=== PATIENT | female | born 1935 | race Caucasian/White ===

== ENCOUNTER 2020-01-12 14:58 | Outpatient (CLI) | payer MEDICARE, SELFPAY | END 2020-01-12 14:59 | disposition home or self-care (01) | LOC: ANHLAB 15:01 | PROVIDERS: PCP Emergency Medicine; Visit Provider Emergency Medicine | DX: E11.9 Type 2 diabetes mellitus without complications (principal) | CPT/HCPCS: 36415; 84443 ==

== ENCOUNTER 2020-01-27 16:06 | Outpatient (CLI) | payer MEDICARE, SELFPAY ==
[2020-01-27 16:52] LABS: Alanine Aminotransferase 17 U/L (4-35); Albumin Level 4.1 g/dL (3.5-5.1); Alkaline Phosphatase 72 U/L (38-126); Aspartate Amino Transferase 31 U/L (14-36); Bilirubin,Total 0.4 mg/dL (0.2-1.3); Blood Urea Nitrogen 29 mg/dL (7-17); Calcium 9.9 mg/dL (8.4-10.2); Carbon Dioxide 37 mmol/L (22-30); Chloride 96 mmol/L (98-107); Estimated Glomerular Filt Rate 24; Glucose 113 mg/dL (65-105); Potassium 4.3 mmol/L (3.4-5.0); Sodium 139 mmol/L (137-145)
== END 2020-01-27 16:07 | disposition home or self-care (01) ==
LOC: ANHLAB 16:07
PROVIDERS: PCP Emergency Medicine; Visit Provider Emergency Medicine
DX: E78.5 Hyperlipidemia, unspecified (principal); E11.9 Type 2 diabetes mellitus without complications
CPT/HCPCS: 36415; 80053

== ENCOUNTER 2020-01-29 00:18 | Emergency (ER) | payer MEDICARE, SELFPAY ==
[2020-01-29 00:22] VITALS: BP 148/119; PULSE 89; RESP 20; TEMP 36.2; O2SAT 96
--- NOTE | 2020-01-29 00:36 | ED.DENTAL ---
HPI - Dental/Oral General Chief complaint: Dental/Oral Stated complaint: Dental pain Time Seen by Provider: 01/29/20 00:30 Source: patient and family Mode of arrival: ambulatory Limitations: no limitations History of Present Illness HPI Narrative: The pt is an 84 y/o female who presents to the ED with c/o rt sided dental pain that began yesterday afternoon. The pt states that the pain radiates to her rt ear, reporting rt otalgia and a ASHFORD. Per pt's family, they have been trying to find a dentist that accepts the pt's insurance because she had bad teeth and keeps getting infections. The pt took Tylenol prior to her arrival to the ED and has a PMHx of renal failure. MD Complaint: tooth pain Onset (ago): hour(s) (yesterday afternoon) Associated symptoms: ear pain (rt) and other (ASHFORD) Treatment prior to arrival: other (Tylenol) Related Data Home Medications Medication Instructions Recorded Confirmed albuterol sulfate 2.5 mg Q4-6H PRN 10/08/19 01/17/20 albuterol sulfate [Ventolin HFA] 2 puff INHALATION Q4-6H PRN 10/08/19 01/17/20 aspirin [Aspir-81] 81 mg PO DAILY 10/08/19 01/17/20 calcitriol 0.25 mcg PO DAILY 10/08/19 01/17/20 cholecalciferol (vitamin D3) 5,000 unit PO DAILY 10/08/19 01/17/20 [Vitamin D3] ferrous gluconate 236 mg PO DAILY 10/08/19 01/17/20 lisinopril 20 mg PO DAILY 10/08/19 01/17/20 multivitamin [Multiple Vitamins] 1 tablet PO DAILY 10/08/19 01/17/20 venlafaxine 150 mg 150 mg PO DAILY 10/08/19 01/17/20 capsule,extended release 24 hr albuterol sulfate 90 mcg/actuation See Rx Instructions .ROUTE .COMPLEX 10/14/19 01/17/20 aerosol inhaler fluticasone propionate 50 See Rx Instructions .ROUTE .COMPLEX 10/14/19 01/17/20 mcg/actuation nasal spray,suspension furosemide 40 mg tablet 40 mg PO DAILY tablet 10/14/19 01/17/20 Allergies Allergy/AdvReac Type Severity Reaction Status Date / Time adhesive tape Allergy Mild ADHESIVE/PLASTIC Verified 10/26/19 09:06 TAPE= ITCHING/ BLISTERS poison maya extract Allergy Unknown Rash Verified 01/29/20 00:48 Review of Systems Review of Systems: All systems reviewed & are unremarkable except as noted in HPI and below ENT: Reports dental pain (rt sided) and Reports otalgia (rt) Neurologic: Reports headache(s) PMFSH Past Medical History Medical History Cardiomegaly Chronic abdominal pain Chronic back pain COPD (chronic obstructive pulmonary disease) Dementia GERD (gastroesophageal reflux disease) GI bleed HLD (hyperlipidemia) HTN (hypertension) Iron deficiency anemia Kidney disease, chronic, stage III (GFR 30-59 ml/min) Nephrolithiasis GELY (obstructive sleep apnea) Osteoarthritis Ulcer Esophageal Ventral hernia Surgical History Surgical History H/O umbilical hernia repair H/O: hysterectomy History of appendectomy History of cataract removal with insertion of prosthetic lens History of tonsillectomy and adenoidectomy Status post gastroplasty x 4 Family History Family History Sibling Heart disease Brain aneurysm Cancer Grandparent Cerebrovascular accident Sibling Family history of obesity Family history of osteoporosis Family history of cataracts Cerebrovascular accident Family history of chronic obstructive pulmonary disease Family history of multiple sclerosis Family history of cardiovascular disease Family history of malignant neoplasm Father Family history of elevated blood lipids Cerebrovascular accident Grandparent Family history of Alzheimer's disease Mother Family history of Alzheimer's disease Sibling Diabetes mellitus Family history of multiple sclerosis Family history of dementia Father Cerebrovascular accident Mother Family history of Alzheimer's disease Other Family history of allergic disorder Fam
[2020-01-29] MEDS: TRAMADOL HCL 50 MG TABLET PO (00:57)
[2020-01-29] MEDS: PENICILLIN V POTASSIUM 250 MG TABLET 500 MG PO (00:58)
== END 2020-01-29 01:00 | disposition home or self-care (01) ==
PROVIDERS: Emergency Provider Emergency Medicine; PCP Emergency Medicine
DX: K02.9 Dental caries, unspecified (principal); I12.9 Hypertensive chronic kidney disease with stage 1 through stage 4 chronic kidney disease, or unspecified chronic kidney disease; N18.3 Chronic kidney disease, stage 3 (moderate); I51.7 Cardiomegaly; J44.9 Chronic obstructive pulmonary disease, unspecified; F03.90 Unspecified dementia, unspecified severity, without behavioral disturbance, psychotic disturbance, mood disturbance, and anxiety; K21.9 Gastro-esophageal reflux disease without esophagitis; E78.5 Hyperlipidemia, unspecified; D50.9 Iron deficiency anemia, unspecified; G47.33 Obstructive sleep apnea (adult) (pediatric); Z98.49 Cataract extraction status, unspecified eye; Z96.1 Presence of intraocular lens; Z87.891 Personal history of nicotine dependence
CPT/HCPCS: 99283; A9270

== ENCOUNTER 2020-02-03 14:50 | Outpatient (CLI) | payer MEDICARE, SELFPAY ==
[2020-02-03 15:45] LABS: Basophils Percent Auto 0.3 % (0.2-1.2); Eosinophils Absolute Auto 0.2 K/mm3 (0-0.3); Hematocrit 37.3 % (37.0-47.0); Hemoglobin 11.7 g/dL (12.0-15.0); Immature Granulocyte Absolute 0.02 K/mm3 (0.00-0.031); Immature Granulocyte Percent A 0.3 % (0-0.5); Lymphocytes Absolute Auto 1.67 K/mm3 (0.9-3.2); Mean Corpuscular HGB Conc 31.4 g/dl (32-36); Mean Corpuscular Hemoglobin 28.7 pg (26-34); Mean Corpuscular Volume 91.4 fl (80-100); Mean Platelet Volume 10.6 fl (7.4-10.4); Monocytes Absolute Auto 0.4 K/mm3 (0.1-0.6); Monocytes Percent Auto 6.7 % (2.6-8.5); Neutrophils Absolute Auto 3.6 K/mm3 (1.3-6.7); Neutrophils Percent Auto 60.7 % (45.5-73.1); Platelet Count Result 233 k/mm3 (150-375); Red Blood Count 4.08 M/mm3 (4.2-5.4)
[2020-02-03 15:58] LABS: Creatinine Urine 149.9 mg/dL; Total Protein Urine Random 124 mg/dL
[2020-02-03 15:58] LABS: Blood Urea Nitrogen 25 mg/dL (7-17); Calcium 9.4 mg/dL (8.4-10.2); Carbon Dioxide 33 mmol/L (22-30); Chloride 100 mmol/L (98-107); Estimated Glomerular Filt Rate 25; Glucose 177 mg/dL (65-105); Phosphorus 2.7 mg/dL (2.5-4.5); Potassium 4.1 mmol/L (3.4-5.0); Sodium 139 mmol/L (137-145)
[2020-02-03 16:09] LABS: Parathyroid Intact 75.1 pg/mL (7.5-53.5)
== END 2020-02-03 14:51 | disposition home or self-care (01) ==
LOC: ANHLAB 14:57
PROVIDERS: PCP Emergency Medicine; Visit Provider Emergency Medicine
DX: N18.3 Chronic kidney disease, stage 3 (moderate) (principal); E03.9 Hypothyroidism, unspecified
CPT/HCPCS: 36415; 80069; 82306; 82570; 83970; 84156; 84443; 85025

== ENCOUNTER 2020-04-25 10:25 | Outpatient (CLI) | payer MEDICARE, SELFPAY ==
[2020-04-25 11:07] LABS: Basophils Percent Auto 0.4 % (0.2-1.2); Eosinophils Absolute Auto 0.3 K/mm3 (0-0.3); Eosinophils Percent Auto 4.4 % (0-4.4); Hemoglobin 11.6 g/dL (12.0-15.0); Immature Granulocyte Absolute 0.03 K/mm3 (0.00-0.031); Immature Granulocyte Percent A 0.4 % (0-0.5); Lymphocytes Absolute Auto 1.53 K/mm3 (0.9-3.2); Lymphocytes Percent Auto 21.9 % (18.3-44.2); Mean Corpuscular HGB Conc 32.2 g/dl (32-36); Monocytes Absolute Auto 0.6 K/mm3 (0.1-0.6); Monocytes Percent Auto 7.9 % (2.6-8.5); Neutrophils Absolute Auto 4.5 K/mm3 (1.3-6.7); Platelet Count Result 240 k/mm3 (150-375); Red Cell Distribution Width 14.1 % (11.5-14.5)
[2020-04-25 11:12] LABS: Add Urine Microscopic? YES; Appearance Urine Turbid (Clear); Bacteria Urine 2+ /hpf; Bilirubin Urine Negative (Negative); Color Urine Yellow (Yellow); Glucose Urine UA Negative (Negative); Ketones Urine Negative (Negative); Leukocyte Esterase Ur 3+ LEU/UL (Negative); Nitrate Urine Positive (Negative); Protein Urine 2+ mg/dL (Negative); Specific Grav Ur 1.014 (1.001-1.035); Squamous Epithelial Cell Urine Many /hpf (Few); Urobilinogen Urine Negative mg/dL (<2.0); WBC Clumps Urine Present /HPF; WBC Urine >75 /hpf
[2020-04-25 11:15] LABS: Blood Urine Negative (Negative)
[2020-04-25 11:31] LABS: Albumin Level 3.8 g/dL (3.5-5.1); Blood Urea Nitrogen 23 mg/dL (7-17); Calcium 9.5 mg/dL (8.4-10.2); Carbon Dioxide 36 mmol/L (22-30); Chloride 99 mmol/L (98-107); Estimated Glomerular Filt Rate 29; Glucose 164 mg/dL (65-105); Phosphorus 3.5 mg/dL (2.5-4.5); Potassium 4.5 mmol/L (3.4-5.0); Sodium 137 mmol/L (137-145)
[2020-04-25 11:41] LABS: Parathyroid Intact 55.6 pg/mL (7.5-53.5)
[2020-04-25 11:44] LABS: Creatinine Urine 90.4 mg/dL; Total Protein Urine Random 92 mg/dL
[2020-04-25 12:01] LABS: Vitamin D 25 Hydroxy 43.3 ng/mL
== END 2020-04-25 10:26 | disposition home or self-care (01) ==
PROVIDERS: PCP Emergency Medicine
DX: N18.3 Chronic kidney disease, stage 3 (moderate) (principal); R10.9 Unspecified abdominal pain
CPT/HCPCS: 36415; 80069; 81001; 82306; 82570; 83970; 84156; 85025; 87077; 87086; 87088; 87186

== ENCOUNTER 2020-07-09 07:38 | Observation (INO) | payer MEDICARE, SELFPAY ==
[2020-07-09] VITALS (14 sets, daily range): BP systolic 107–240; BP diastolic 55–222; PULSE 63–83; RESP 17–23; TEMP 36.4–36.9; O2SAT 90–100; BMI 46.3
--- NOTE | ~2020-07-09 | CT_ITS ---
EXAMINATION: CT brain wo con DATE: 07/09/2020 08:24 INDICATION: Headache TECHNIQUE: Computed tomography (CT) of the head was performed without intravenous contrast. Sagittal and coronal reconstructions were performed. The mA was adjusted according to patient size. Iterative reconstruction technique was employed. The dose-length product was 681.00 mGy-cm. COMPARISON: head CT and brain MR dated 05/30/2014 FINDINGS: No acute intracranial hemorrhage, acute infarction or abnormal extra axial fluid collection. There is moderate scattered white matter hypoattenuation consistent with chronic small vessel ischemic diseas e. Symmetric prominence of the sulci and ventricles consistent with moderate age-appropriate diffuse cerebral volume loss. No mass/mass effect. Changes of bilateral intraocular lens replacement. There is mucosal thickening at the right frontoethmoidal recess. The orbits and mastoid air cells are eliseo l. Intracranial calcified cerebral atherosclerosis is noted. IMPRESSION: 1. No acute intracranial process. 2. Age-related changes including moderate diffuse volume loss and moderate scattered white matter hyp oattenuation consistent with chronic small vessel ischemic disease. Reviewed, dictated and finalized at location A. IMPRESSION: 1. No acute intracranial process. 2. Age-related changes including moderate diffuse volume loss and moderate scat tered white matter hypoattenuation consistent with chronic small vessel ischemi c disease.
--- NOTE | ~2020-07-09 | CT_ITS ---
EXAMINATION: CT brain wo con EXAM DATE: 07/11/2020 19:08 INDICATION: Stroke like symptoms. TECHNIQUE: Spiral CT of the head was performed without contrast. Axial, coronal and sagittal images were reviewed. The dose-length product (DLP) for this examination was 681.00 mGy-cm. The exposure w as tailored according to patient size, and iterative reconstruction (ASIR) was used as additional dos e reduction technique. Comparison is made to prior examination from 07/09/2020. FINDINGS: There is no acute intraparenchymal hemorrhage. No evidence of intraparenchymal brain mass lesion. No evidence of acute infarction. Please note that initial head CT has limited sensitivity f or small or acute infarctions. There is moderate periventricular and subcortical hypodensity, nonspec ific but probably related to small vessel ischemic disease. There is moderate prominence of the sul ci and ventricles related to cerebral atrophy. There is intracranial carotid arteriosclerosis. The re are no extra-axial collections. There is no mass effect or midline shift. Patient has had bilate ral ocular lens surgery. Soft tissue is unremarkable. The visualized sinuses and mastoid air cells are well aerated. IMPRESSION: 1. No acute intracranial findings. 2. Chronic age related findings. Reviewed, dictated and finalized at location A.
--- NOTE | ~2020-07-09 | MR_ITS ---
EXAMINATION: MR brain/brain stem wo con DATE: 07/10/2020 08:40 INDICATION: Headache. TECHNIQUE: Magnetic resonance imaging (MRI) of the brain and brainstem was performed without intraven ous contrast. Sequences included sagittal T1-weighted FSE and axial DWI. ADC maps were created. The p atlorenza could not tolerate additional imaging. COMPARISON: Brain MRI 05/30/2014, head CT 07/09/2020 FINDINGS: Motion artifact is noted. There are scattered areas of nonspecific increased T2-weighted si gnal intensity in the cerebral white matter. There is no acute ischemic infarct, intracranial hemorrh age, or abnormal mass lesion. The ventricles are normal in size. IMPRESSION: 1. Moderate nonspecific cerebral white matter disease, which likely represents chronic small vessel i schemic disease, worsened from 05/30/2014. 2. The patient terminated the exam early, and multiple sequences could not be performed, which decrea ses sensitivity. Reviewed, dictated and finalized at location B. IMPRESSION: 1. Moderate nonspecific cerebral white matter disease, which likely represents chronic small vessel ischemic disease, worsened from 05/30/2014. 2. The patient terminated the exam early, and multiple sequences could not be p erformed, which decreases sensitivity.
--- NOTE | 2020-07-09 07:53 | ECG_ITS ---
Measurements Intervals [place] Rate: 67 P: 44 LA: 204 QRS: -16 QRSD: 90 T: 15 QT: 421 QTc: 447 Interpretive Statements SINUS RHYTHM BORDERLINE AV CONDUCTION DELAY LOW QRS VOLTAGE IN PRECORDIAL LEADS POOR R WAVE PROGRESSION, ANTERIOR LEADS BORDERLINE T WAVE ABNORMALITY- ANT/INF LEADS BASELINE ARTIFACT- I, II, III, AVF BORDERLINE ECG Electronically Signed On 07-09-2020 14:58:42 CDT by Mendoza Nunes D.O.
[2020-07-09] MEDS: LABETALOL HCL INJ 100 MG/20 ML VIAL 20 MG IV PUSH (07:57)
[2020-07-09] MEDS: MORPHINE SULFATE 4 MG/ML INJ IV PUSH (07:58)
[2020-07-09] MEDS: METOCLOPRAMIDE HCL INJ 10 MG/2 ML VIAL IV PUSH (07:58)
--- NOTE | 2020-07-09 08:02 | ED.GENADULT ---
HPI - General Adult General Chief complaint: Headache Stated complaint: ASHFORD Source: patient Mode of arrival: EMS History of Present Illness HPI narrative: Patient is a 84 y/o female complaining of throbbing bilateral frontal headache since last night. She describes her headache as 10/10. She states that her daughter gave her some pain medicine , which helped slightly. She has some nausea and dry heaves, but not vomiting. She has no focal weakness, numbness or speech difficulty. Related Data Home Medications Medication Instructions Recorded Confirmed albuterol sulfate 2.5 mg Q4-6H PRN 10/08/19 06/13/20 albuterol sulfate [Ventolin HFA] 2 puff INHALATION Q4-6H PRN 10/08/19 06/13/20 aspirin [Aspir-81] 81 mg PO DAILY 10/08/19 06/13/20 calcitriol 0.25 mcg PO DAILY 10/08/19 06/13/20 cholecalciferol (vitamin D3) 5,000 unit PO DAILY 10/08/19 06/13/20 [Vitamin D3] ferrous gluconate 236 mg PO DAILY 10/08/19 06/13/20 lisinopril 20 mg PO DAILY 10/08/19 06/13/20 multivitamin [Multiple Vitamins] 1 tablet PO DAILY 10/08/19 06/13/20 venlafaxine 150 mg 150 mg PO DAILY 10/08/19 06/13/20 capsule,extended release 24 hr albuterol sulfate 90 mcg/actuation See Rx Instructions .ROUTE .COMPLEX 10/14/19 06/13/20 aerosol inhaler fluticasone propionate 50 See Rx Instructions .ROUTE .COMPLEX 10/14/19 06/13/20 mcg/actuation nasal spray,suspension Allergies Allergy/AdvReac Type Severity Reaction Status Date / Time adhesive tape Allergy Mild ADHESIVE/PLASTIC Verified 07/09/20 07:52 TAPE= ITCHING/ BLISTERS poison maya extract Allergy Unknown Rash Verified 07/09/20 07:52 Review of Systems Constitutional: Constitutional: Denies chills, Denies fever(s), Reports headache(s) and Denies weakness Eyes: Eyes: Denies blurry vision ENT: Reports headache(s) and Denies neck pain Cardiovascular: Cardiovascular: Denies chest pain and Denies dyspnea Respiratory: Respiratory: Denies cough and Denies dyspnea Gastrointestinal: Gastrointestinal: Denies abdominal pain, Denies diarrhea, Denies nausea and Denies vomiting Genitourinary: Genitourinary: Denies hematuria and Denies dysuria Musculoskeletal: Musculoskeletal: Denies back pain and Denies neck pain Neurologic: Reports headache(s) and Denies weakness PMFSH Past Medical History Medical History Cardiomegaly Chronic abdominal pain Chronic back pain COPD (chronic obstructive pulmonary disease) Dementia GERD (gastroesophageal reflux disease) GI bleed HLD (hyperlipidemia) HTN (hypertension) Iron deficiency anemia Kidney disease, chronic, stage III (GFR 30-59 ml/min) Nephrolithiasis GELY (obstructive sleep apnea) Osteoarthritis Ulcer Esophageal Ventral hernia Surgical History Surgical History H/O umbilical hernia repair H/O: hysterectomy History of appendectomy History of cataract removal with insertion of prosthetic lens History of tonsillectomy and adenoidectomy Status post gastroplasty x 4 Family History Family History Sibling Heart disease Brain aneurysm Cancer Grandparent Cerebrovascular accident Sibling Family history of obesity Family history of osteoporosis Family history of cataracts Cerebrovascular accident Family history of chronic obstructive pulmonary disease Family history of multiple sclerosis Family history of cardiovascular disease Family history of malignant neoplasm Father Family history of elevated blood lipids Cerebrovascular accident Grandparent Family history of Alzheimer's disease Mother Family history of Alzheimer's disease Sibling Diabetes mellitus Family history of multiple sclerosis Family history of dementia Father Cerebrovascular accident Mother Family history of Alzheimer's disease Other Family history of allergic dis
--- NOTE | 2020-07-09 08:05 | PC.NURSE ---
Pt to CT scan via stretcher, pt on tele monitor.
[2020-07-09 08:12] LABS: Basophils Percent Auto 0.5 % (0.2-1.2); Eosinophils Absolute Auto 0.2 K/mm3 (0-0.3); Eosinophils Percent Auto 2.9 % (0-4.4); Hematocrit 36.7 % (37.0-47.0); Hemoglobin 11.8 g/dL (12.0-15.0); Immature Granulocyte Absolute 0.02 K/mm3 (0.00-0.031); Immature Granulocyte Percent A 0.3 % (0-0.5); Lymphocytes Absolute Auto 1.54 K/mm3 (0.9-3.2); Lymphocytes Percent Auto 19.7 % (18.3-44.2); Mean Corpuscular HGB Conc 32.2 g/dl (32-36); Mean Corpuscular Hemoglobin 28.2 pg (26-34); Mean Corpuscular Volume 87.6 fl (80-100); Mean Platelet Volume 10.6 fl (7.4-10.4); Monocytes Absolute Auto 0.6 K/mm3 (0.1-0.6); Monocytes Percent Auto 7.1 % (2.6-8.5); Neutrophils Absolute Auto 5.4 K/mm3 (1.3-6.7); Neutrophils Percent Auto 69.5 % (45.5-73.1); Platelet Count Result 221 k/mm3 (150-375); Red Blood Count 4.19 M/mm3 (4.2-5.4); Red Cell Distribution Width 14.1 % (11.5-14.5); White Blood Count 7.8 K/mm3 (4.5-10.0)
[2020-07-09 08:26] LABS: Alanine Aminotransferase 15 U/L (4-35); Albumin Level 3.8 g/dL (3.5-5.1); Alkaline Phosphatase 84 U/L (38-126); Anion Gap 6 mmol/L (8-16); Aspartate Amino Transferase 26 U/L (14-36); Bilirubin,Total 0.2 mg/dL (0.2-1.3); Blood Urea Nitrogen 34 mg/dL (7-17); Calcium 9.5 mg/dL (8.4-10.2); Carbon Dioxide 33 mmol/L (22-30); Chloride 96 mmol/L (98-107); Estimated CRCL calculation 28 ml/min; Estimated Glomerular Filt Rate 27; Glucose 158 mg/dL (65-105); Potassium 4.3 mmol/L (3.4-5.0); Sodium 135 mmol/L (137-145)
[2020-07-09] MEDS: amLODIPine BESYLATE 5 MG TABLET 10 MG PO (09:34)
[2020-07-09 10:03] LABS: Add Urine Microscopic? YES; Appearance Urine Turbid (Clear); Bacteria Urine 2+ /hpf; Bilirubin Urine Negative (Negative); Color Urine Yellow (Yellow); Glucose Urine UA Negative (Negative); Ketones Urine Negative (Negative); Leukocyte Esterase Ur 3+ LEU/UL (Negative); Mucus Urine Rare /lpf; Nitrate Urine Positive (Negative); Protein Urine 2+ mg/dL (Negative); Specific Grav Ur 1.014 (1.001-1.035); Squamous Epithelial Cell Urine Many /hpf (Few); Urobilinogen Urine Negative mg/dL (<2.0); WBC Urine 51-75 /hpf
[2020-07-09 10:04] LABS: Blood Urine Negative (Negative)
--- NOTE | 2020-07-09 11:50 | ADMGEN ---
This patient, Suha Shelton, was admitted to 2 Medical Room 257-01. Patient/family oriented to hospital policies and general routines including ID bracelet, bed and alarms, visiting hours, pain management, procedures, bathroom and other care routines, personal items, smoking policy, room service/diet, and visiting hours. Valuables list has been completed. Information on how to activate the Rapid Response Team has been discussed. Patient/Family are encouraged to report perceived risks to care and to ask questions if they do not understand what they are told or what they should do.
[2020-07-09 14:39] LABS: Basophils Percent Auto 0.3 % (0.2-1.2); Eosinophils Percent Auto 0.1 % (0-4.4); Hemoglobin 12.8 g/dL (12.0-15.0); Immature Granulocyte Absolute 0.04 K/mm3 (0.00-0.031); Immature Granulocyte Percent A 0.4 % (0-0.5); Lymphocytes Percent Auto 8.4 % (18.3-44.2); Mean Corpuscular HGB Conc 32.8 g/dl (32-36); Mean Corpuscular Hemoglobin 28.5 pg (26-34); Mean Corpuscular Volume 86.9 fl (80-100); Mean Platelet Volume 10.5 fl (7.4-10.4); Monocytes Absolute Auto 0.3 K/mm3 (0.1-0.6); Monocytes Percent Auto 3.2 % (2.6-8.5); Neutrophils Absolute Auto 8.3 K/mm3 (1.3-6.7); Neutrophils Percent Auto 87.6 % (45.5-73.1); Platelet Count Result 221 k/mm3 (150-375); Red Blood Count 4.49 M/mm3 (4.2-5.4); White Blood Count 9.5 K/mm3 (4.5-10.0)
[2020-07-09 14:46] LABS: Hemoglobin A1C 8.4 % (<5.7)
[2020-07-09 14:48] LABS: Anion Gap 9 mmol/L (8-16); Blood Urea Nitrogen 30 mg/dL (7-17); Calcium 9.2 mg/dL (8.4-10.2); Carbon Dioxide 31 mmol/L (22-30); Chloride 96 mmol/L (98-107); Estimated CRCL calculation 29 ml/min; Estimated Glomerular Filt Rate 29; Glucose 229 mg/dL (65-105); Potassium 4.1 mmol/L (3.4-5.0); Sodium 136 mmol/L (137-145)
[2020-07-09 16:52] LABS: Glucose Point of Care 173 (65-105)
--- NOTE | 2020-07-09 16:58 | PM.IMHP ---
H&P: HPI History of Present Illness Date/Time: 07/09/20 16:58 Chief complaint: hypertensive urgency Narrative: Suha Shelton is a 84 year old female with past medical history of diabetes hypertension patient presented emergency department with a complaint of bilateral frontal headache for 2 days and worsening, patient is quite somnolent and sleepy unable to provide any history or review of symptoms most history is recorded from electronic charts. patient has history of headache on and off however normally resolves after Tylenol with this time headache is persisting, patient denies any associated symptoms or blurry vision, no fever or chills, upon arrival to emergency department patient blood pressure was 240/222 in emergency depart was given labetalol, Reglan, and morphine this did help her headache and her blood pressure trended down to 173/93, patient UA is positive for nitrite and leukocyte and appears similarly in the past growing E coli sensitive to Rocephin will continue that will continue patient's home regimen, will do MRI of the brain in the morning however patient is morbidly obese will plan accordingly. will have a PT OT evaluate the patient. Review of Systems Review of Systems: ROS unobtainable: Yes unobtainable due to medical condition PMFSH Past Medical History Medical History Cardiomegaly Chronic abdominal pain Chronic back pain COPD (chronic obstructive pulmonary disease) Dementia GERD (gastroesophageal reflux disease) GI bleed HLD (hyperlipidemia) HTN (hypertension) Iron deficiency anemia Kidney disease, chronic, stage III (GFR 30-59 ml/min) Nephrolithiasis GELY (obstructive sleep apnea) Osteoarthritis Ulcer Esophageal Ventral hernia Surgical History Surgical History H/O umbilical hernia repair H/O: hysterectomy History of appendectomy History of cataract removal with insertion of prosthetic lens History of tonsillectomy and adenoidectomy Status post gastroplasty x 4 Family History Family History Sibling Heart disease Brain aneurysm Cancer Grandparent Cerebrovascular accident Sibling Family history of obesity Family history of osteoporosis Family history of cataracts Cerebrovascular accident Family history of chronic obstructive pulmonary disease Family history of multiple sclerosis Family history of cardiovascular disease Family history of malignant neoplasm Father Family history of elevated blood lipids Cerebrovascular accident Grandparent Family history of Alzheimer's disease Mother Family history of Alzheimer's disease Sibling Diabetes mellitus Family history of multiple sclerosis Family history of dementia Father Cerebrovascular accident Mother Family history of Alzheimer's disease Other Family history of allergic disorder Family history of blood dyscrasia Family history of gout Family history of kidney disease Hypertension Social History Social History Social History: Ms. Shelton lives at home in [place] with her daughter and 7 other family members to include her grand daughter and grandyeison's family. 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 She reports ambulating mostly with a cane but also has a walker at home if she needs it. She denies alcohol or other substance use. She smoked cigarettes for 1 year in 1989 when she smoked about 1 pack per day, then quit. Her PCP is Dr Whitlock. She designates her daughter, Mel Perry, as her surrogate decision maker and is full code status. Smoking packs per day: 1 Smoking cigarettes per day: 20.0 Years smoked: 5 Smoking pack-years: 5.00 Smoking status: Former smoker Tobacc
[2020-07-09] MEDS: allopurinoL 100 MG TABLET PO (17:08)
[2020-07-09] MEDS: busPIRone HCL 10 MG TABLET 30 MG PO (17:08)
[2020-07-09] MEDS: CYCLOBENZAPRINE HCL 5 MG TABLET PO (17:09)
[2020-07-09] MEDS: TRIAMCINOLONE ACET 0.5% CREAM 15 GM TUBE 1 APPLIC TOPICAL (17:09)
[2020-07-09] MEDS: DONEPEZIL HCL 10 MG TABLET PO (20:31)
[2020-07-09] MEDS: SIMVASTATIN 20 MG TABLET 40 MG PO (20:31)
[2020-07-09] MEDS: ACETAMINOPHEN 325 MG TABLET 650 MG PO (22:50)
[2020-07-09] MEDS: MELATONIN 5 MG TABLET PO (23:14)
[2020-07-09] MEDS: ONDANSETRON INJ 4 MG/2 ML VIAL IV PUSH (23:54)
[2020-07-10] VITALS (12 sets, daily range): BP systolic 101–161; BP diastolic 58–98; PULSE 63–92; RESP 18–24; TEMP 36.4–37; O2SAT 91–99; BMI 46.3
[2020-07-10 05:39] LABS: Hemoglobin 13.6 g/dL (12.0-15.0); Mean Corpuscular HGB Conc 32.4 g/dl (32-36); Mean Corpuscular Hemoglobin 28.1 pg (26-34); Mean Corpuscular Volume 86.8 fl (80-100); Mean Platelet Volume 10.3 fl (7.4-10.4); Platelet Count Result 226 k/mm3 (150-375); Red Blood Count 4.84 M/mm3 (4.2-5.4); Red Cell Distribution Width 14.2 % (11.5-14.5); White Blood Count 10.9 K/mm3 (4.5-10.0)
[2020-07-10 05:55] LABS: Anion Gap 8 mmol/L (8-16); Blood Urea Nitrogen 28 mg/dL (7-17); Calcium 9.2 mg/dL (8.4-10.2); Carbon Dioxide 31 mmol/L (22-30); Chloride 95 mmol/L (98-107); Estimated CRCL calculation 29 ml/min; Estimated Glomerular Filt Rate 29; Glucose 184 mg/dL (65-105); Potassium 4.1 mmol/L (3.4-5.0); Sodium 134 mmol/L (137-145)
[2020-07-10] MEDS: LEVOTHYROXINE SODIUM 75 MCG TABLET PO (06:04)
[2020-07-10] MEDS: LEVOTHYROXINE SODIUM 100 MCG TABLET PO (06:04)
[2020-07-10 07:44] LABS: Glucose Point of Care 163 (65-105)
--- NOTE | 2020-07-10 08:01 | PC.NURSE ---
To MRI per stretcher
[2020-07-10] MEDS: calcitrioL 0.25 MCG CAPSULE PO (09:03)
[2020-07-10] MEDS: PANTOPRAZOLE 40 MG TABLET PO (09:03)
[2020-07-10] MEDS: allopurinoL 100 MG TABLET PO ×2 (09:03→16:37)
[2020-07-10] MEDS: CHOLECALCIFEROL 1,000 UNIT TABLET 5000 UNITS PO (09:03)
[2020-07-10] MEDS: CITALOPRAM HYDROBROMIDE 20 MG TABLET PO (09:03)
[2020-07-10] MEDS: lisinopriL 20 MG TABLET PO (09:03)
[2020-07-10] MEDS: MULTIVITAMINS THERAPEUTIC TAB (*BKC) 1 TABLET PO (09:03)
[2020-07-10] MEDS: busPIRone HCL 10 MG TABLET 30 MG PO ×2 (09:03→16:37)
[2020-07-10] MEDS: POTASSIUM CHLORIDE 20 MEQ TABLET.ER PO (09:03)
[2020-07-10] MEDS: FUROSEMIDE 40 MG TABLET PO (09:03)
[2020-07-10] MEDS: CYCLOBENZAPRINE HCL 5 MG TABLET PO ×3 (09:04→16:37)
[2020-07-10] MEDS: carvediloL 6.25 MG TABLET PO (09:04)
[2020-07-10] MEDS: TRIAMCINOLONE ACET 0.5% CREAM 15 GM TUBE 1 APPLIC TOPICAL ×2 (09:07→16:37)
[2020-07-10 12:17] LABS: Glucose Point of Care 106 (65-105)
[2020-07-10] MEDS: ACETAMINOPHEN 325 MG TABLET 650 MG PO (13:26)
--- NOTE | 2020-07-10 14:09 | PCNSR ---
On 07/10/20, the student,Johnny Gutierrez, provided care and [facility]. I have reviewed the student's documentation and agree with the findings.
--- NOTE | 2020-07-10 14:35 | PM.IMPN ---
Progress Note: A&P Assessment and Plan (1) Headache: Qualifiers: Headache chronicity pattern: unspecified pattern Headache type: unspecified Intractability: not intractable Qualified Code(s): R51 - Headache Code(s): R51 - Headache Status: Acute Assessment and Plan: 07/10/20 14:35 Suha Shelton is a 84 year old female with past medical history of diabetes hypertension patient presented emergency department with a complaint of bilateral frontal headache for 2 days and worsening, patient is quite somnolent and sleepy unable to provide any history or review of symptoms most history is recorded from electronic charts. patient has history of headache on and off however normally resolves after Tylenol with this time headache is persisting, patient denies any associated symptoms or blurry vision, no fever or chills, upon arrival to emergency department patient blood pressure was 240/222 in emergency depart was given labetalol, Reglan, and morphine this did help her headache and her blood pressure trended down to 173/93, patient UA is positive for nitrite and leukocyte and appears similarly in the past growing E coli sensitive to Rocephin will continue that will continue patient's home regimen, Today patient had MRI of brain did not show any acute injury however it showed 1. Moderate nonspecific cerebral white matter disease, which likely represents chronic small vessel ischemic disease, worsened from concerning this may be caused of ASHFORD, will consult neurologist for their opinion, today patient BP is better with home regiement however while with PT patient had pause and bradycardia, will consult chamber magistrate for their recommendatiion. will continue to monitor. (2) Hypertensive urgency: Code(s): I16.0 - Hypertensive urgency Status: Acute Assessment and Plan: upon arrival patient blood pressure was extremely elevated, likely secondary to not taking her medication as patient with headache and did not feel well, patient blood pressure is trending down resume home medication will monitor (3) UTI (urinary tract infection): Qualifiers: Hematuria presence: without hematuria Urinary tract infection type: site unspecified Qualified Code(s): N39.0 - Urinary tract infection, site not specified Code(s): N39.0 - Urinary tract infection, site not specified Status: Acute Assessment and Plan: patient started on Rocephin will follow-up on urine culture identification and sensitivity (4) HTN (hypertension): Qualifiers: Hypertension type: essential hypertension Qualified Code(s): I10 - Essential (primary) hypertension Code(s): I10 - Essential (primary) hypertension Status: Chronic Assessment and Plan: continue home regimen and monitor (5) Diabetes: Code(s): E11.9 - Type 2 diabetes mellitus without complications Status: Acute Assessment and Plan: continue home regimen and monitor Subjective Date/time seen: 07/10/20 14:35 Suha Shelton is a 84 year old female with past medical history of diabetes hypertension patient presented emergency department with a complaint of bilateral frontal headache for 2 days and worsening, patient is quite somnolent and sleepy unable to provide any history or review of symptoms most history is recorded from electronic charts. patient has history of headache on and off however normally resolves after Tylenol with this time headache is persisting, patient denies any associated symptoms or blurry vision, no fever or chills, upon arrival to emergency department patient blood pressure was 240/222 in emergency depart was given labetalol, Reglan, and morphine this did help her headache and her blood pressure trended down to 173/93, patient UA is positive for nitrite and leukocyte and appears similarly in the past growing E coli sensitive to Rocephin will continue that will continue patient
--- NOTE | 2020-07-10 15:20 | CONS_ITS ---
DATE OF CONSULTATION: HISTORY OF PRESENT ILLNESS: This 84-year-old right-handed female was admitted to the hospital through the ER for the complaint of hypertensive urgency in addition to the ongoing history of 1. Diabetes mellitus. 2. Hypertension. 3. Cardiomegaly. 4. COPD. 5. Dementia. 6. Chronic renal disease. As per the review of the medical record, the patient presented to the emergency room with complaints of bilateral frontal headaches of 48 hours duration, increasing in the severity making her more and more somnolent. The patient does have, however, history of off and on headaches which usually respond to the Tylenol. She gave no history of associated visual difficulties or generalized discomfort and fever. In the emergency room because of the elevated blood pressure of 240/222, she received labetalol, morphine for the pain. Her blood pressure was standing down to 173/93. Her UA was positive for nitrites and leukocyte esterase. In the past, she has had UTI with E coli, which was sensitive to Rocephin. For that, she was started on that medication. MRI of the brain was requested. LABORATORY DATA: Evaluation up until now includes CBC with 10.9 WBCs, hemoglobin 13.6, platelet count of 226. Basic metabolic panel normal with sodium being 134, chloride 95, CO2 of 31, BUN 28, and creatinine 1.7, estimated GFR only 29, glucose 184, calcium 9.2. IMAGING DATA: She had the head CT scan in the emergency room, which was read as age-related changes with volume loss, scattered white matter hypoattenuation raising the possibility of chronic small-vessel ischemic disease. It was followed by the MRI of the brain today, which documented nonspecific white matter disease representing chronic small-vessel ischemic disease, but worsening from 05/03/2014. Her urine culture at this stage is pending. PHYSICAL EXAMINATION: GENERAL: Today, she is lethargic, obese. HEENT: Head normocephalic. NECK: Supple with no meningeal signs. No cervical bruit. HEART: Regular. LUNGS: Clear with no obvious crepitations or rhonchi. ABDOMEN: Soft. No organomegaly. Normal bowel sounds. SKIN: Normal with no rash. NEUROLOGICAL: She is somnolent. Pupils sluggishly reacting. Extraocular movements are full. Face grimace, symmetrical. Motor examination revealed her to have decreased strength in upper and lower extremities. Plantars are downgoing. There is no evidence of gross cerebellar deficit, but that exam is rather limited. IMPRESSION: Ongoing history of dementia with superimposed hypertensive-related encephalopathy in addition to the history of underlying multiple medical problems as outlined above. At this stage, she is taking all her medications including levothyroxine 75 mcg daily, insulin for diabetes. Certain changes will be made in the medication such as we can hold the cyclobenzaprine, Buspar, and melatonin. Further adjustment will be made accordingly. We are waiting for all the cultures. DOLLY AQUINO M.D. MILITARY PROFESSIONAL MILITARY PROFESSIONAL D I MT: [place]
--- NOTE | 2020-07-10 15:22 | PM.CNCAR ---
Assessment and Plan Additional Plan 84-year-old woman with hypertensive urgency. She is in the hospital being treated for this blood pressure has responded nicely to resuming her medication. For reasons that are not clear to me she is on telemetry and asymptomatic pauses are being noticed. These appear to be sinus pauses. I will start up by discontinuing her beta-diana she is on a modest dose of carvedilol. She does have a cardiac murmur indicative of some degree of aortic valve stenosis. I do not believe this is likely to be severe based on the characteristics of this murmur but I will go ahead and request an echocardiogram for further evaluation of this. Bowen Roes MD [facility] History of Present Illness History of Present Illness Consult date/time: Date of service:07/10/20 15:22 Reason For Visit: hypertensive urgency Narrative: This is an 84-year-old woman who is in the hospital it appears because of concern regarding hypertension. The patient was hospitalized here feeling poorly from the sn[place] where she resides and no upon coming to the emergency room was found to be very hypertensive and admitted for further evaluation. According to the hospitalist's notes it is felt that probably this is because of noncompliance with hypertension medications which have been prescribed. While the patient is in the hospital she is on telemetry for reasons that are not evident and today apparently while she was having physical therapy she had a asystolic pause of 4.7 seconds noted on telemetry. The quality of the baseline at the time of this telemetry pause is of poor quality with a fair amount of motion artifact and so I can't tell for certain what the atrial rhythm is although on a couple of the complex it appears that there are sinus P waves present. The remainder of the ECGs and telemetry strips that are on the chart are of good quality and demonstrate normal sinus rhythm. Upon coming in the room to see the patient as requested she is incapable of providing any history. When I question her she opens her eyes and looks at me but will not respond to any questions. There is a phlebotomy nurse in the room trying to establish peripheral IV access which apparently fell out a short time ago. According to the notes that are in the chart she does not have any established diagnosis of some heart disease separate from this. Review of Systems Review of Systems: ROS unobtainable: Yes unobtainable due to mental status [facility] Past Medical History Medical History (Updated 07/09/20 @ 17:05 by Mario Cardona MD) Cardiomegaly Chronic abdominal pain Chronic back pain COPD (chronic obstructive pulmonary disease) Dementia Diabetes GERD (gastroesophageal reflux disease) GI bleed HLD (hyperlipidemia) HTN (hypertension) Iron deficiency anemia Kidney disease, chronic, stage III (GFR 30-59 ml/min) Nephrolithiasis GELY (obstructive sleep apnea) Osteoarthritis Ulcer Esophageal Ventral hernia Surgical History Surgical History H/O umbilical hernia repair H/O: hysterectomy History of appendectomy History of cataract removal with insertion of prosthetic lens History of tonsillectomy and adenoidectomy Status post gastroplasty x 4 Family History Family History Sibling Heart disease Brain aneurysm Cancer Grandparent Cerebrovascular accident Sibling Family history of obesity Family history of osteoporosis Family history of cataracts Cerebrovascular accident Family history of chronic obstructive pulmonary disease Family history of multiple sclerosis Family history of cardiovascular disease Family history of malignant neoplasm Father Family history of elevated blood lipids Cerebrovascular accident Grandparent Family history of Alzheimer's disease Mother Family history of Alzheimer's disease Sibling Diabetes annel
[2020-07-10] MEDS: ONDANSETRON INJ 4 MG/2 ML VIAL IV PUSH (15:23)
[2020-07-10 17:05] LABS: Glucose Point of Care 124 (65-105)
[2020-07-10] MEDS: DONEPEZIL HCL 10 MG TABLET PO (20:00)
[2020-07-10] MEDS: SIMVASTATIN 20 MG TABLET 40 MG PO (20:00)
[2020-07-10] MEDS: MELATONIN 5 MG TABLET PO (20:00)
[2020-07-10 21:00] LABS: Glucose Point of Care 126 (65-105)
[2020-07-11] VITALS (12 sets, daily range): BP systolic 110–137; BP diastolic 54–84; PULSE 58–68; RESP 18–22; TEMP 35.8–36.6; O2SAT 92–99
--- NOTE | 2020-07-11 | ECHO_ITS ---
Patient Info Name: Suha Shelton Age: 84 years : 1935 Gender: Female Ht: 64 in Wt: 270 lbs BSA: 2.42 m2 BP: 129 / 68 mmHg Heart Rhythm: Sinus Rhythm Technical Quality: Fair Exam Date: 07/11/2020 10:31 AM Exam Location: [facility] Patient Status: Outpatient Admit Date: 07/09/2020 Staff Ordering Physician: Bowen Rose MD Bagging Machine Operator: Beny Alvarado, [place], RT Attending Provider: Kirk Galeano MD Referring Physician: Rose DENTON; Exam Type: CA echo doppler color flow Study Info Indications I35.0 - Nonrheumatic aortic (valve) stenosis Complete two-dimensional, color flow and Doppler transthoracic echocardiogram is performed. Summary 1. Left ventricular chamber dimension is normal. 2. Left ventricular systolic function is normal, estimated at 65-70%. 3. There is moderately increased left ventricular wall thickness. 4. Left ventricular septal wall motion is normal. 5. The left ventricular diastolic function is grade II diastolic dysfunction. 6. Left atrial chamber dimension is mildly enlarged. 7. There is mild aortic valve calcification. 8. There is mild mitral valve regurgitation. 9. There is mild tricuspid valve regurgitation. 10. The pericardium appears increased echogenicity of the pericardium. 11. There is small pericardial effusion. Left Ventricle Left ventricular chamber dimension is normal. Left ventricular systolic function is normal, estimated at 65-70%. There is moderately increased left ventricular wall thickness. Left ventricular septal wall motion is normal. The left ventricular diastolic function is grade II diastolic dysfunction. Right Ventricle Right ventricular chamber dimension is normal. Right ventricular systolic function is normal. Left Atria Left atrial chamber dimension is mildly enlarged. Right Atria Right atrial chamber dimension is normal. Atrial Septum Intact interatrial septum visualized by color flow imaging. Aortic Valve The aortic valve is trileaflet. There is mild aortic valve sclerosis. There is no aortic valve stenosis. There is trace aortic valve regurgitation. There is mild aortic valve calcification. Pulmonic Valve The pulmonic valve is normal. There is no pulmonic valve stenosis. There is trace pulmonic regurgitation. Mitral Valve The mitral valve has calcified annulus. There is no mitral valve stenosis. There is mild mitral valve regurgitation. Tricuspid Valve The tricuspid valve leaflets are normal. There is no significant tricuspid valve stenosis. There is mild tricuspid valve regurgitation. Pericardium/Pleural The pericardium appears increased echogenicity of the pericardium. There is small pericardial effusion. Inferior Vena Cava Normal inferior vena cava with >50% collapse upon inspiration consistent with normal right atrial pressure, 5 mmHg. Aorta The aortic root size at the sinus of Valsalva is normal. Left Ventricular Outflow Tract Name Value Normal LVOT 2D LVOT Diameter 2.0 cm LVOT Doppler LVOT Peak Gradient 5 mmHg LVOT Mean Gradient
[2020-07-11 05:40] LABS: Hematocrit 35.6 % (37.0-47.0); Hemoglobin 11.4 g/dL (12.0-15.0); Mean Corpuscular Hemoglobin 28.4 pg (26-34); Mean Corpuscular Volume 88.8 fl (80-100); Platelet Count Result 224 k/mm3 (150-375); Red Blood Count 4.01 M/mm3 (4.2-5.4); Red Cell Distribution Width 14.6 % (11.5-14.5); White Blood Count 8.1 K/mm3 (4.5-10.0)
[2020-07-11 05:56] LABS: Potassium 3.9 mmol/L (3.4-5.0)
[2020-07-11 05:58] LABS: Anion Gap 8 mmol/L (8-16); Blood Urea Nitrogen 37 mg/dL (7-17); Carbon Dioxide 32 mmol/L (22-30); Chloride 94 mmol/L (98-107); Estimated CRCL calculation 20 ml/min; Estimated Glomerular Filt Rate 18; Glucose 124 mg/dL (65-105); Sodium 134 mmol/L (137-145)
[2020-07-11] MEDS: LEVOTHYROXINE SODIUM 100 MCG TABLET PO (06:15)
[2020-07-11] MEDS: LEVOTHYROXINE SODIUM 75 MCG TABLET PO (06:16)
[2020-07-11 07:42] LABS: Glucose Point of Care 131 (65-105)
[2020-07-11] MEDS: calcitrioL 0.25 MCG CAPSULE PO (08:43)
[2020-07-11] MEDS: busPIRone HCL 10 MG TABLET 30 MG PO ×2 (08:43→16:28)
[2020-07-11] MEDS: CHOLECALCIFEROL 1,000 UNIT TABLET 5000 UNITS PO (08:43)
[2020-07-11] MEDS: CITALOPRAM HYDROBROMIDE 20 MG TABLET PO (08:43)
[2020-07-11] MEDS: CYCLOBENZAPRINE HCL 5 MG TABLET PO ×3 (08:43→16:28)
[2020-07-11] MEDS: allopurinoL 100 MG TABLET PO ×2 (08:43→16:28)
[2020-07-11] MEDS: lisinopriL 20 MG TABLET PO (08:44)
[2020-07-11] MEDS: MULTIVITAMINS THERAPEUTIC TAB (*BKC) 1 TABLET PO (08:44)
[2020-07-11] MEDS: POTASSIUM CHLORIDE 20 MEQ TABLET.ER PO (08:44)
[2020-07-11] MEDS: TRIAMCINOLONE ACET 0.5% CREAM 15 GM TUBE 1 APPLIC TOPICAL ×2 (08:44→16:28)
[2020-07-11] MEDS: PANTOPRAZOLE 40 MG TABLET PO (08:44)
[2020-07-11] MEDS: FUROSEMIDE 40 MG TABLET PO (08:44)
[2020-07-11 08:51] LABS: Glucose Point of Care 120 (65-105)
--- NOTE | 2020-07-11 10:53 | PM.PNCARD ---
Progress Note: A&P Assessment and Plan (1) Hypertensive urgency: Code(s): I16.0 - Hypertensive urgency Status: Acute Assessment and Plan: improved . Reduce her lisinopril down to 10 mg daily given her worsening renal function (2) CKD (chronic kidney disease) stage 4, GFR 15-29 ml/min: Code(s): N18.4 - Chronic kidney disease, stage 4 (severe) Status: Acute Assessment and Plan: worsening (3) Cardiomegaly: Code(s): I51.7 - Cardiomegaly Status: Chronic Assessment and Plan: echo pending (4) UTI (urinary tract infection): Qualifiers: Urinary tract infection type: acute cystitis Hematuria presence: without hematuria Qualified Code(s): N30.00 - Acute cystitis without hematuria Code(s): N39.0 - Urinary tract infection, site not specified Status: Acute Assessment and Plan: on antibiotics (5) Bradycardia: Code(s): R00.1 - Bradycardia, unspecified Status: Acute Assessment and Plan: better after holding carvedilol. No significant bradycardia overnight. No pauses. Subjective Date/time seen: 07/11/20 10:53 Interval history: chief complaint: Headache, hypertension Date of service 07/11/2020: She still has a headache but otherwise is doing okay. Without chest pain or shortness breath. Review of Systems Review of Systems: All systems reviewed & are unremarkable except as noted in HPI and below Constitutional: Constitutional: Denies weakness Eyes: Eyes: Denies blurry vision ENT: Reports Normal hearing present Cardiovascular: Cardiovascular: Denies chest pain Respiratory: Respiratory: Denies dyspnea Gastrointestinal: Gastrointestinal: Denies abdominal pain Genitourinary: Genitourinary: Denies hematuria Musculoskeletal: Musculoskeletal: Denies neck pain Integumentary/Breasts: Skin/Breast: Denies unusual bruising Neurologic: Reports headache(s) Psychiatric: Psychiatric: Denies confusion Endocrine: Endocrine: Denies cold intolerance Hematologic/Lymphatic: Hematologic/Lymphatic: Denies easy bleeding Allergic/Immunologic: Allergic/Immunologic: Denies urticaria and Denies itchy eyes Exam Const: General: comfortable and no acute distress Other: Morbidly obese white female who is in room 257 and is arousable but not responsive. HENMT: Mouth: Yes moist mucous membranes Eyes: Sclera: sclerae normal Pupils: Equal, round and reactive pupils present Neck: Neck: supple Thyroid: thyroid normal Other: Impossible to assess venous distention given her size Resp: Effort & Inspection: normal respiratory effort Auscultation: clear to auscultation bilaterally Other: grade 2/6 crescendo decrescendo murmur audible the left sternal border and at the base. No diastolic murmur Cardio: Rate: regular rate Rhythm: regular rhythm GI: Auscultation: normal bowel sounds Skin: General skin exam: normal color Neuro: Cranial nerves: Yes Equal, round and reactive pupils present Cognition (Neuro): abnormal cognition Extrem: Other: extremities very obese, no pitting edema very good distal pulses Objective Data Vital Signs Vital Signs: Vital Signs - 24 hr 07/10/20 12:00 07/10/20 15:50 07/10/20 16:00 Temperature 36.4 C 36.7 C Pulse Rate 64 72 83 Respiratory Rate 20 18 22 H Blood Pressure 101/84 129/87 Pulse Oximetry 91 99 98 07/10/20 19:57 07/10/20 20:00 07/11/20 00:00 Temperature 36.9 C 36.6 C Pulse Rate 74 66 67 Respiratory Rate 20 22 H 18 Blood Pressure 130/58 L 115/54 L Pulse Oximetry 97 98 99 07/11/20 00:06 07/11/20 04:00 07/11/20 04:08 Temperature 36.2 C L Pulse Rate 60 64 64 Respiratory Rate 18 Blood Pressure 129/68 Pulse Oximetry 98 07/11/20 08:30 07/11/20 09:30 Temperature 36.2 C L Pulse Rate 64 58 L Respiratory Rate 22 H Blood Pressure 119/77 Pulse Oximetry 98 Intake/Output Intake/Output: Intake & Output 07/08/20 07/09/20 07/10/20 08
[2020-07-11 12:40] LABS: Glucose Point of Care 143 (65-105)
[2020-07-11 13:10] LABS: CRP 2.8 mg/dL (<1.0)
--- NOTE | 2020-07-11 13:19 | PM.DS ---
DS: Admitting Diagnosis Admitting Diagnosis Admitting Diagnosis: DOS 07/12/2020 Headache DS: Discharge Diagnosis Discharge Diagnosis (1) Headache: Qualifiers: Headache chronicity pattern: unspecified pattern Headache type: unspecified Intractability: not intractable Qualified Code(s): R51 - Headache Code(s): R51 - Headache Status: Acute Assessment and Plan: Suha Shelton is a 84 year old female with past medical history of diabetes hypertension patient presented emergency department with a complaint of bilateral frontal headache for 2 days and worsening, patient is quite somnolent and sleepy unable to provide any history or review of symptoms most history is recorded from electronic charts. patient has history of headache on and off however normally resolves after Tylenol with this time headache is persisting, patient denies any associated symptoms or blurry vision, no fever or chills, upon arrival to emergency department patient blood pressure was 240/222 in emergency depart was given labetalol, Reglan, and morphine this did help her headache and her blood pressure trended down to 173/93, patient UA is positive for nitrite and leukocyte and appears similarly in the past growing E coli sensitive to Rocephin will continue that will continue patient's home regimen, Today patient had MRI of brain did not show any acute injury however it showed 1. Moderate nonspecific cerebral white matter disease, which likely represents chronic small vessel ischemic disease, worsened from concerning this may be caused of [place], will consult neurologist for their opinion, today patient BP is better with home regiement however while with PT patient had pause and bradycardia, 07/11 cardiology have made changes with patient medications and BP are stable today 07/11 Unfortunately when pts discharge was held yesterday 07/11 as pt had a episode when her hand went numb and she could not speak. Stat CT head was ordered which showed no new infarcts or bleeds chronic changes only. Pt had a MRI of the brain the day before which showed chronic changes. Pt had PT/ OT prior to dischrage Pt hand was not numb anymore and was able to speak appears back to her baseline. Seen by cardiology and neurology ok for discharge 07/12 (2) Hypertensive urgency: Code(s): I16.0 - Hypertensive urgency Status: Acute Assessment and Plan: Upon arrival patient blood pressure was extremely elevated, likely secondary to not taking her medication as patient with headache and did not feel well, patient blood pressure is much better now. Pt ready to go home. (3) UTI (urinary tract infection): Qualifiers: Hematuria presence: without hematuria Urinary tract infection type: site unspecified Qualified Code(s): N39.0 - Urinary tract infection, site not specified Code(s): N39.0 - Urinary tract infection, site not specified Status: Acute Assessment and Plan: Patient started on Rocephin will follow-up on urine culture identification and sensitivity, transition to levaquin for 7 days. (4) HTN (hypertension): Qualifiers: Hypertension type: essential hypertension Qualified Code(s): I10 - Essential (primary) hypertension Code(s): I10 - Essential (primary) hypertension Status: Chronic Assessment and Plan: Continue home regimen and monitor at home (5) Diabetes: Code(s): E11.9 - Type 2 diabetes mellitus without complications Status: Acute Assessment and Plan: Continue home regimen and monitor at home DS: Summary Time Spent with Patient Time attestation: Total time spent providing and/or coordinating discharge services:40 minutes on day of dischrage Exam Const: General: other (large lady elderly ) Neck: Neck: supple Resp: Effort & Inspection: normal respiratory effort Auscultation: clear to auscultation bilaterally Cardio: Rate: regular rate
--- NOTE | 2020-07-11 13:20 | WPDNEUROPN ---
Progress Note: A&P Assessment and Plan (1) UTI (urinary tract infection): Qualifiers: Hematuria presence: without hematuria Urinary tract infection type: site unspecified Qualified Code(s): N39.0 - Urinary tract infection, site not specified Code(s): N39.0 - Urinary tract infection, site not specified Status: Acute (2) Hypertensive urgency: Code(s): I16.0 - Hypertensive urgency Status: Acute (3) Headache: Qualifiers: Headache chronicity pattern: unspecified pattern Headache type: unspecified Intractability: not intractable Qualified Code(s): R51 - Headache Code(s): R51 - Headache Status: Acute (4) CKD (chronic kidney disease) stage 4, GFR 15-29 ml/min: Code(s): N18.4 - Chronic kidney disease, stage 4 (severe) Status: Acute (5) GELY (obstructive sleep apnea): Code(s): G47.33 - Obstructive sleep apnea (adult) (pediatric) Status: Chronic (6) COPD (chronic obstructive pulmonary disease): Code(s): J44.9 - Chronic obstructive pulmonary disease, unspecified Status: Chronic (7) Dementia: Qualifiers: Dementia type: unspecified type Dementia behavioral disturbance: without behavioral disturbance Qualified Code(s): F03.90 - Unspecified dementia without behavioral disturbance Code(s): F03.90 - Unspecified dementia without behavioral disturbance Status: Chronic Additional Plan since her headaches are better and they are not associated with anything else to suggest any [employer] infection or temporal arteritis I think the present management needs to be continued I suspect these are related to urinary tract infection and they would resolve however to complete the workup I have order the sed rate and the CRP to see where we are but on the other hand it might be spurious Starla elevated because of she being diabetic, we will see Review of Systems Review of Systems: All systems reviewed & are unremarkable except as noted in HPI and below Exam Const: General: comfortable and no acute distress HENMT: General nose exam: Normal nares present Mouth: Yes moist mucous membranes Eyes: General: appearance normal, both eyes and all related structures Neck: Neck: supple and no JVD Resp: Effort & Inspection: normal respiratory effort Auscultation: clear to auscultation bilaterally Cardio: Rate: regular rate Rhythm: regular rhythm GI: Auscultation: normal bowel sounds Skin: General skin exam: normal color and no rashes or lesions noted Neuro: Other: patient awake and alert well oriented however clearly has dementia unable to perform simple calculations unable to remember the previous presidents unable to abstract without any lateralizing focal motor deficit without any evidence of joint pains temporal tenderness and without any lateralizing deficits sensory or motor Extrem: General: normal to inspection Other: she is an obese woman with BM I am of 47 and her legs are obviously for the lack of a better were more than 1 would expect in a normal person Psych: Other: [id number] dementia but mood renteria affect renteria stable Objective Data Vital Signs Vital Signs: Vital Signs - 24 hr 07/10/20 15:50 07/10/20 16:00 07/10/20 19:57 Temperature 36.7 C Pulse Rate 72 83 74 Respiratory Rate 18 22 H 20 Blood Pressure 129/87 Pulse Oximetry 99 98 97 07/10/20 20:00 07/11/20 00:00 07/11/20 00:06 Temperature 36.9 C 36.6 C Pulse Rate 66 67 60 Respiratory Rate 22 H 18 Blood Pressure 130/58 L 115/54 L Pulse Oximetry 98 99 07/11/20 04:00 07/11/20 04:08 07/11/20 08:30 Temperature 36.2 C L Pulse Rate 64 64 64 Respiratory Rate 18 Blood Pressure 129/68 Pulse Oximetry 98 07/11/20 09:30 07/11/20 12:00 Temperature 36.2 C L Pulse Rate 58 L 59 L Respiratory Rate 22 H Blood Pressure 119/77 Pulse Oximetry 98 Intake/Output Intake/Output: Intake & Output 07/08/20 07/09/20 07/10/20 07/11/20
[2020-07-11 13:25] LABS: Erythrocyte Sedimentation Rate 134 mm/hr (0-20)
[2020-07-11 17:38] LABS: Glucose Point of Care 139 (65-105)
--- NOTE | 2020-07-11 18:30 | PC.NURSE ---
Patient being discharged. Patient awake and alert - in chair and given a full bath and hair washed. Daughter at bedside. Patient ate her dinner tray. Denies further headache. Reviewed all discharge instructions with patient and her daughter. Transported patient to daughter's car for discharge - via wheelchair. When we arrived at daughter's car, assisted patient into car. Patient began staring and said my left hand is numb . Asked patient to squeeze my hands - left cloth covered helmet puller noted to be significantly weaker than right cloth covered helmet puller. Foot pushes equal bilaterally. Patient stated she felt odd . Assisted patient back into wheelchair. Patient noted to be a bit more unsteady. Returned to patient room and VS obtained: HR in the 60s and telemetry revealed NSR. BP 110/68, RR 20. Pulse ox 92% on room air. Patient placed back on O2 at 2 liters per nasal cannula. Assisted back to bed. Patient then stated her hand was no longer numb. Patient then began having difficulty speaking. Speech noted to be garbled and difficult to understand. Code stroke called. Dr. Paez called and all of the above reported to her. Orders received for stat CT of brain. I accompanied patient to CT for stat brain CT. Patient c/o intermittent left hand numbness and weakness during this time. Speech garbled intermittently as well. Returned from CT of brain and patient settled back in room. Patient c/o headache and light sensitivity on arrival back in room. Dr. Paez notified of CT results and states Dr. Echavarria will come up to assess patient. Daughter remains at bedside and will wait to speak with Dr. Echavarria.
[2020-07-11] MEDS: SIMVASTATIN 20 MG TABLET 40 MG PO (20:33)
[2020-07-11] MEDS: DONEPEZIL HCL 10 MG TABLET PO (20:33)
[2020-07-11] MEDS: MELATONIN 5 MG TABLET PO (20:34)
[2020-07-11 23:03] LABS: Glucose Point of Care 81 (65-105)
[2020-07-11 23:03] LABS: Glucose Point of Care 58 (65-105)
[2020-07-11 23:03] LABS: Glucose Point of Care 58 (65-105)
[2020-07-12] VITALS (8 sets, daily range): BP systolic 100–125; BP diastolic 46–51; PULSE 60–70; RESP 14–18; TEMP 36.1–36.4; O2SAT 92–97
[2020-07-12 05:22] LABS: Hematocrit 35.8 % (37.0-47.0); Hemoglobin 11.5 g/dL (12.0-15.0); Mean Corpuscular HGB Conc 32.1 g/dl (32-36); Mean Corpuscular Volume 87.3 fl (80-100); Mean Platelet Volume 10.1 fl (7.4-10.4); Platelet Count Result 232 k/mm3 (150-375); Red Cell Distribution Width 14.3 % (11.5-14.5); White Blood Count 9.3 K/mm3 (4.5-10.0)
[2020-07-12 05:42] LABS: Anion Gap 7 mmol/L (8-16); Blood Urea Nitrogen 48 mg/dL (7-17); Calcium 8.9 mg/dL (8.4-10.2); Carbon Dioxide 33 mmol/L (22-30); Chloride 93 mmol/L (98-107); Estimated CRCL calculation 19 ml/min; Estimated Glomerular Filt Rate 17; Glucose 84 mg/dL (65-105); Potassium 3.9 mmol/L (3.4-5.0); Sodium 133 mmol/L (137-145)
[2020-07-12] MEDS: LEVOTHYROXINE SODIUM 100 MCG TABLET PO (06:15)
[2020-07-12] MEDS: LEVOTHYROXINE SODIUM 75 MCG TABLET PO (06:15)
[2020-07-12 06:59] LABS: Glucose Point of Care 85 (65-105)
[2020-07-12 07:49] LABS: Glucose Point of Care 96 (65-105)
[2020-07-12] MEDS: PANTOPRAZOLE 40 MG TABLET PO (08:28)
[2020-07-12] MEDS: busPIRone HCL 10 MG TABLET 30 MG PO ×2 (08:28→16:26)
[2020-07-12] MEDS: FUROSEMIDE 40 MG TABLET PO (08:28)
[2020-07-12] MEDS: lisinopriL 10 MG TABLET PO (08:28)
[2020-07-12] MEDS: MULTIVITAMINS THERAPEUTIC TAB (*BKC) 1 TABLET PO (08:28)
[2020-07-12] MEDS: allopurinoL 100 MG TABLET PO ×2 (08:28→16:27)
[2020-07-12] MEDS: CITALOPRAM HYDROBROMIDE 20 MG TABLET PO (08:28)
[2020-07-12] MEDS: calcitrioL 0.25 MCG CAPSULE PO (08:28)
[2020-07-12] MEDS: TRIAMCINOLONE ACET 0.5% CREAM 15 GM TUBE 1 APPLIC TOPICAL ×2 (08:29→16:27)
[2020-07-12] MEDS: POTASSIUM CHLORIDE 20 MEQ TABLET.ER PO (08:29)
[2020-07-12] MEDS: CYCLOBENZAPRINE HCL 5 MG TABLET PO ×3 (08:29→16:27)
[2020-07-12] MEDS: CHOLECALCIFEROL 1,000 UNIT TABLET 5000 UNITS PO (08:29)
[2020-07-12] MEDS: ACETAMINOPHEN 325 MG TABLET 650 MG PO ×2 (08:33→17:12)
--- NOTE | 2020-07-12 09:47 | PM.PNCARD ---
Progress Note: A&P Assessment and Plan (1) Hypertensive urgency: Code(s): I16.0 - Hypertensive urgency Status: Acute Assessment and Plan: improved . blood pressure at goal (2) CKD (chronic kidney disease) stage 4, GFR 15-29 ml/min: Code(s): N18.4 - Chronic kidney disease, stage 4 (severe) Status: Acute Assessment and Plan: worsening. Hold furosemide today (3) Cardiomegaly: Code(s): I51.7 - Cardiomegaly Status: Chronic (4) UTI (urinary tract infection): Qualifiers: Urinary tract infection type: acute cystitis Hematuria presence: without hematuria Qualified Code(s): N30.00 - Acute cystitis without hematuria Code(s): N39.0 - Urinary tract infection, site not specified Status: Acute Assessment and Plan: on antibiotics (5) Bradycardia: Code(s): R00.1 - Bradycardia, unspecified Status: Acute Assessment and Plan: better after holding carvedilol. No significant bradycardia overnight. No pauses. Subjective Date/time seen: 07/12/20 09:47 Interval history: chief complaint: Headache, hypertension Date of service 07/12/2020: complains of knee pain but otherwise no chest pain or shortness of breath Review of Systems Review of Systems: All systems reviewed & are unremarkable except as noted in HPI and below ROS unobtainable: Yes unobtainable due to mental status Constitutional: Constitutional: Reports headache(s) and Denies weakness Eyes: Eyes: Denies blurry vision and Denies itchy eyes ENT: Reports Normal hearing present, Reports headache(s) and Denies neck pain Cardiovascular: Cardiovascular: Denies chest pain and Denies dyspnea Respiratory: Respiratory: Denies dyspnea Gastrointestinal: Gastrointestinal: Denies abdominal pain Genitourinary: Genitourinary: Denies hematuria Musculoskeletal: Musculoskeletal: Denies neck pain Integumentary/Breasts: Skin/Breast: Denies unusual bruising Neurologic: Reports Normal hearing present, Denies confusion, Reports headache(s) and Denies weakness Psychiatric: Psychiatric: Denies confusion Endocrine: Endocrine: Denies cold intolerance Hematologic/Lymphatic: Hematologic/Lymphatic: Denies easy bleeding Allergic/Immunologic: Allergic/Immunologic: Denies urticaria and Denies itchy eyes Exam Const: General: comfortable and no acute distress; No confusion Orientation/consciousness: No confusion Other: Morbidly obese white female who is in room 257 and is arousable but not responsive. HENMT: Mouth: Yes moist mucous membranes Eyes: Sclera: sclerae normal Pupils: Equal, round and reactive pupils present Neck: Neck: supple Thyroid: thyroid normal Other: Impossible to assess venous distention given her size Resp: Effort & Inspection: normal respiratory effort Auscultation: clear to auscultation bilaterally Other: grade 2/6 crescendo decrescendo murmur audible the left sternal border and at the base. No diastolic murmur Cardio: Rate: regular rate Rhythm: regular rhythm GI: Auscultation: normal bowel sounds Skin: General skin exam: normal color Neuro: General: No confusion Cranial nerves: Yes Equal, round and reactive pupils present and Yes Normal hearing present Cognition (Neuro): abnormal cognition Extrem: Other: extremities very obese, no pitting edema very good distal pulses Objective Data Vital Signs Vital Signs: Vital Signs - 24 hr 07/11/20 12:00 07/11/20 13:40 07/11/20 16:00 Temperature 36.4 C Pulse Rate 59 L 63 64 Respiratory Rate 22 H Blood Pressure 137/84 Pulse Oximetry 96 07/11/20 18:30 07/11/20 20:00 07/11/20 22:00 Temperature 35.8 C L Pulse Rate 68 63 60 Respiratory Rate 20 20 Blood Pressure 110/68 110/68 Pulse Oximetry 92 96 07/12/20 00:00 07/12/20 02:00 07/12/20 04:00 Temperature 36.1 C L Pulse Rate 62 65 60 Respiratory Rate 18 Blood Pressure 125/51 L Pulse Oximetry 97 07/12/20
[2020-07-12 11:59] LABS: Glucose Point of Care 140 (65-105)
--- NOTE | 2020-07-12 13:42 | PM.IMPN ---
Progress Note: A&P Assessment and Plan (1) Headache: Qualifiers: Headache chronicity pattern: unspecified pattern Headache type: unspecified Intractability: not intractable Qualified Code(s): R51 - Headache Code(s): R51 - Headache Status: Acute Assessment and Plan: Suha Shelton is a 84 year old female with past medical history of diabetes hypertension patient presented emergency department with a complaint of bilateral frontal headache for 2 days and worsening, patient is quite somnolent and sleepy unable to provide any history or review of symptoms most history is recorded from electronic charts. patient has history of headache on and off however normally resolves after Tylenol with this time headache is persisting, patient denies any associated symptoms or blurry vision, no fever or chills, upon arrival to emergency department patient blood pressure was 240/222 in emergency depart was given labetalol, Reglan, and morphine this did help her headache and her blood pressure trended down to 173/93, patient UA is positive for nitrite and leukocyte and appears similarly in the past growing E coli sensitive to Rocephin will continue that will continue patient's home regimen, Today patient had MRI of brain did not show any acute injury however it showed 1. Moderate nonspecific cerebral white matter disease, which likely represents chronic small vessel ischemic disease, worsened from concerning this may be caused of [place], will consult neurologist for their opinion, today patient BP is better with home regiement however while with PT patient had pause and bradycardia, 07/11 cardiology have made changes with patient medications. Unfortunately when pts discharge was held yesterday as pt had a episode when her hand went numb and she could not speak. Stat CT head was ordered which showed no new infarcts or bleeds chronic changes only. Pt had a MRI of the brain the day before which showed similar chronic changes. (2) Hypertensive urgency: Code(s): I16.0 - Hypertensive urgency Status: Acute Assessment and Plan: Upon arrival patient blood pressure was extremely elevated, likely secondary to not taking her medication as patient with headache and did not feel well, patient blood pressure is much better now. (3) UTI (urinary tract infection): Qualifiers: Hematuria presence: without hematuria Urinary tract infection type: site unspecified Qualified Code(s): N39.0 - Urinary tract infection, site not specified Code(s): N39.0 - Urinary tract infection, site not specified Status: Acute Assessment and Plan: patient started on Rocephin will follow-up on urine culture identification and sensitivity, transition to levaquin for 7 days. (4) HTN (hypertension): Qualifiers: Hypertension type: essential hypertension Qualified Code(s): I10 - Essential (primary) hypertension Code(s): I10 - Essential (primary) hypertension Status: Chronic Assessment and Plan: continue home regimen and monitor at home (5) Diabetes: Code(s): E11.9 - Type 2 diabetes mellitus without complications Status: Acute Assessment and Plan: continue home regimen and monitor at home Subjective Date/time seen: 07/11/20 13:42 Interval history: Pt admitted for HTN urgency and A[place] Pt seen by cardiology and neurology and is OK for dischrage. Pt feels better and wants to go home Review of Systems Review of Systems: All systems reviewed & are unremarkable except as noted in HPI and below ROS unobtainable: Yes other (mild headache ) Exam Const: General: other (large lady elderly ) Resp: Effort & Inspection: normal respiratory effort Auscultation: clear to auscultation bilaterally Cardio: Rate: regular rate Rhythm: regular rhythm Extrem: General: normal to inspection Objective Data Vital Signs Vital Signs: Vital Signs - 24 hr 0
[2020-07-12] MEDS: INSULIN ASPART (*BKC) 100 UNITS/ML SUB-Q (16:24)
[2020-07-12 16:39] LABS: Glucose Point of Care 202 (65-105)
--- NOTE | 2020-07-12 16:39 | PC.NURSE ---
Patients daughter at the bedside and voicing concerns over taking patient home. She is stating she feels as though her mother is more confused than she normally is. Educated daughter and patient on test results, therapy, etc. that have all checked out okay. They are requesting to talk to Dr. Paez. Notified Dr. Paez and she is now at the bedside.
== END 2020-07-12 17:40 | disposition home health service (06) ==
LOC: ANHED 10:36 → ANH2MED 11:56
PROVIDERS: Family Medicine; Psychiatry & Neurology Neurology; Admitting Provider Internal Medicine; Emergency Provider Emergency Medicine; PCP Emergency Medicine; Visit Provider Family Medicine
DX: R51 Headache (principal); I16.0 Hypertensive urgency; N39.0 Urinary tract infection, site not specified; I51.7 Cardiomegaly; R00.1 Bradycardia, unspecified; J44.9 Chronic obstructive pulmonary disease, unspecified; I12.9 Hypertensive chronic kidney disease with stage 1 through stage 4 chronic kidney disease, or unspecified chronic kidney disease; N18.4 Chronic kidney disease, stage 4 (severe); E11.22 Type 2 diabetes mellitus with diabetic chronic kidney disease; G47.33 Obstructive sleep apnea (adult) (pediatric); F03.90 Unspecified dementia, unspecified severity, without behavioral disturbance, psychotic disturbance, mood disturbance, and anxiety; E78.5 Hyperlipidemia, unspecified; K21.9 Gastro-esophageal reflux disease without esophagitis; Z87.891 Personal history of nicotine dependence; Z79.82 Long term (current) use of aspirin; Z79.4 Long term (current) use of insulin
CPT/HCPCS: 36415; 70450; 70551; 80048; 80053; 81001; 83036; 85025; 85027; 85652; 86140; 87077; 87086; 87088; 87186; 93005; 93306; 96365; 96366; 96375; 96376; 97116; 97161; 97165; 97530; 97535; 99285; A9270; G0378; J0696; J1815; J2270; J2405; J2765; Q9957

== ENCOUNTER 2020-07-27 12:09 | Outpatient (CLI) | payer MEDICARE, SELFPAY ==
[2020-07-27 13:38] LABS: Add Urine Microscopic? YES; Appearance Urine Clear (Clear); Bacteria Urine Trace /hpf; Bilirubin Urine Negative (Negative); Blood Urine Negative (Negative); Color Urine Yellow (Yellow); Glucose Urine UA 1+ mg/dL (Negative); Ketones Urine Negative (Negative); Leukocyte Esterase Ur Negative LEU/UL (Negative); Mucus Urine Rare /lpf; Nitrate Urine Negative (Negative); Protein Urine 2+ mg/dL (Negative); Specific Grav Ur 1.015 (1.001-1.035); Squamous Epithelial Cell Urine Moderate /hpf (Few); Urobilinogen Urine Negative mg/dL (<2.0); WBC Urine 0-3 /hpf
[2020-07-27 13:45] LABS: Anion Gap 6 mmol/L (8-16); Blood Urea Nitrogen 30 mg/dL (7-17); Carbon Dioxide 33 mmol/L (22-30); Chloride 99 mmol/L (98-107); Estimated Glomerular Filt Rate 25; Glucose 185 mg/dL (65-105); Potassium 4.4 mmol/L (3.4-5.0); Sodium 138 mmol/L (137-145)
== END 2020-07-27 12:10 | disposition home or self-care (01) ==
PROVIDERS: PCP Emergency Medicine; Visit Provider Nurse Practitioner Adult Health
DX: N18.9 Chronic kidney disease, unspecified (principal); N39.0 Urinary tract infection, site not specified
CPT/HCPCS: 36415; 80048; 81001

== ENCOUNTER 2020-10-31 13:01 | Outpatient (CLI) | payer MEDICARE, SELFPAY ==
[2020-10-31 16:46] LABS: Basophils Percent Auto 0.4 % (0.2-1.2); Eosinophils Absolute Auto 0.4 K/mm3 (0-0.3); Eosinophils Percent Auto 4.2 % (0-4.4); Hematocrit 36.1 % (37.0-47.0); Hemoglobin 11.5 g/dL (12.0-15.0); Immature Granulocyte Absolute 0.03 K/mm3 (0.00-0.031); Immature Granulocyte Percent A 0.4 % (0-0.5); Lymphocytes Absolute Auto 2.09 K/mm3 (0.9-3.2); Mean Corpuscular HGB Conc 31.9 g/dl (32-36); Mean Corpuscular Hemoglobin 28.8 pg (26-34); Mean Corpuscular Volume 90.3 fl (80-100); Mean Platelet Volume 9.9 fl (7.4-10.4); Monocytes Absolute Auto 0.5 K/mm3 (0.1-0.6); Monocytes Percent Auto 6.2 % (2.6-8.5); Neutrophils Absolute Auto 5.4 K/mm3 (1.3-6.7); Neutrophils Percent Auto 63.8 % (45.5-73.1); Platelet Count Result 241 k/mm3 (150-375); Red Cell Distribution Width 15.1 % (11.5-14.5); White Blood Count 8.4 K/mm3 (4.5-10.0)
[2020-10-31 16:57] LABS: Albumin Level 3.9 g/dL (3.5-5.1); Anion Gap 5 mmol/L (8-16); Blood Urea Nitrogen 34 mg/dL (7-17); Calcium 9.8 mg/dL (8.4-10.2); Carbon Dioxide 35 mmol/L (22-30); Chloride 101 mmol/L (98-107); Estimated Glomerular Filt Rate 27; Glucose 170 mg/dL (65-105); Potassium 4.3 mmol/L (3.4-5.0); Sodium 141 mmol/L (137-145)
[2020-10-31 16:57] LABS: Add Urine Microscopic? YES; Appearance Urine Clear (Clear); Bacteria Urine Trace /hpf; Bilirubin Urine Negative (Negative); Blood Urine Negative (Negative); Color Urine Yellow (Yellow); Glucose Urine UA Negative (Negative); Ketones Urine Negative (Negative); Leukocyte Esterase Ur Trace LEU/UL (NEGATIVE); Mucus Urine Rare /lpf; Nitrate Urine Positive (Negative); Protein Urine 2+ mg/dL (Negative); RBC Urine 0-2 /hpf (0-2); Specific Grav Ur 1.013 (1.001-1.035); Squamous Epithelial Cell Urine Occasional /hpf (Few); Urobilinogen Urine Negative mg/dL (<2.0)
[2020-10-31 17:08] LABS: Parathyroid Intact 46.7 pg/mL (7.5-53.5)
== END 2020-10-31 13:02 | disposition home or self-care (01) ==
LOC: ANHLAB 13:05
PROVIDERS: PCP Emergency Medicine
DX: N18.30 Chronic kidney disease, stage 3 unspecified (principal)
CPT/HCPCS: 36415; 80069; 81001; 83970; 85025

== ENCOUNTER 2021-01-08 23:28 | Emergency (ER) | payer MEDICARE, SELFPAY ==
--- NOTE | ~2021-01-08 | XR_ITS ---
EXAMINATION: XR chest 2V DATE: 01/09/2021 01:15 INDICATION: Chest pain. TECHNIQUE: Frontal and lateral views of the chest were obtained. COMPARISON: Chest 2 views 11/16/2012, CT abdomen and pelvis 01/09/2021 FINDINGS: There is mild atelectasis in the lower lung zones. Calcified pulmonary nodules and calcifie d hilar and mediastinal lymph nodes are consistent with old granulomatous disease. No pleural effusio n or pneumothorax. The heart size is normal. Mediastinal lipomatosis is noted. There are old healed l eft rib fractures. There are surgical changes of the stomach. IMPRESSION: 1. Mild atelectasis in the lower lung zones. Reviewed, dictated and finalized at location A. IVABLES SPECIALIST
--- NOTE | ~2021-01-08 | CT_ITS ---
EXAMINATION: CT abdomen pelvis wo con DATE: 01/09/2021 01:08 INDICATION: Abdominal pain. TECHNIQUE: Computed tomography (CT) of the abdomen and pelvis was performed without intravenous contr ast. Automated exposure control and iterative reconstruction technique were employed. The dose-length product was 1414.60 mGy-cm. COMPARISON: CT abdomen and pelvis 10/08/2019 FINDINGS: The visualized portions of the lung bases demonstrate mild atelectasis. Calcified pulmonary nodules and calcified hilar and mediastinal lymph nodes are consistent with old adenomatous disease. No pleural effusion. The heart size is normal. No pericardial effusion. There are coronary artery ca lcifications. The liver is normal. Calcifications in the spleen are consistent with old granulomatous disease. There are surgical changes in the stomach. There is focal wall thickening of the gallbladde r fundus, consistent with adenomyomatosis. The pancreas and adrenal glands are normal. There is a 1 m m stone in right kidney. There are cysts in the kidneys measuring up to 6.4 cm on the left. There are two 3 mm stones in left kidney. There is a small volume of ascites. There is a large ventral hernia containing nonobstructed large and small bowel. There is wall thickening of small bowel loops in left abdomen with mesenteric edema. There are scattered diverticula involving small and large bowel. Ther e are no pathologically enlarged lymph nodes. There is severe thoracolumbar spondylosis. IMPRESSION: 1. Large ventral hernia containing nonobstructed small and large bowel. 2. Wall thickening of small bowel in left abdomen, consistent with enteritis. 3. Small volume of ascites. Reviewed, dictated and finalized at location A. TITATIVE MANAGER
--- NOTE | 2021-01-08 23:43 | ECG_ITS ---
Measurements Intervals [place] Rate: 0 P: AL: 0 QRS: QRSD: 0 T: QT: 0 QTc: 0 Interpretive Statements SINUS OR ECTOPIC ATRIAL RHYTHM RIGHT AXIS DEVIATION POOR R WAVE PROGRESSION, CONSIDER ANTERIOR INFARCT ABNORMAL ECG Electronically Signed On 01-09-2021 13:46:39 [employer]NER by Mendoza Nunes D.O.
[2021-01-08 23:48] VITALS: BP 107/61; PULSE 79; RESP 14; TEMP 36.2; O2SAT 94
[2021-01-08 23:52] VITALS: BP 95/64; PULSE 82; RESP 18; O2SAT 94
--- NOTE | 2021-01-08 23:59 | PC.NURSE ---
Note pt's bp decreased 80 systolic. Pt placed in trendelenberg position, and IVF initiated per v.o. Dr. León.
[2021-01-09] MEDS: SODIUM CHLORIDE 0.9% IV 1,000 ML 999 ML
[2021-01-09 00:15] VITALS: BP 100/57; PULSE 77; RESP 18; O2SAT 92
[2021-01-09 00:44] LABS: Basophils Absolute Auto 0.1 K/mm3 (0.0-0.1); Basophils Percent Auto 0.4 % (0.2-1.2); Eosinophils Absolute Auto 0.2 K/mm3 (0-0.3); Hematocrit 38.2 % (37.0-47.0); Hemoglobin 12.3 g/dL (12.0-15.0); Immature Granulocyte Absolute 0.05 K/mm3 (0.00-0.031); Immature Granulocyte Percent A 0.4 % (0-0.5); Lymphocytes Absolute Auto 1.67 K/mm3 (0.9-3.2); Lymphocytes Percent Auto 14.7 % (18.3-44.2); Mean Corpuscular HGB Conc 32.2 g/dl (32-36); Mean Corpuscular Hemoglobin 28.9 pg (26-34); Mean Corpuscular Volume 89.7 fl (80-100); Mean Platelet Volume 10.8 fl (7.4-10.4); Monocytes Absolute Auto 0.6 K/mm3 (0.1-0.6); Monocytes Percent Auto 5.1 % (2.6-8.5); Neutrophils Absolute Auto 8.8 K/mm3 (1.3-6.7); Neutrophils Percent Auto 77.4 % (45.5-73.1); Platelet Count Result 254 k/mm3 (150-375); Red Blood Count 4.26 M/mm3 (4.2-5.4); Red Cell Distribution Width 14.2 % (11.5-14.5); White Blood Count 11.4 K/mm3 (4.5-10.0)
[2021-01-09 00:51] LABS: Alanine Aminotransferase 11 U/L (4-35); Albumin Level 2.9 g/dL (3.5-5.1); Alkaline Phosphatase 58 U/L (38-126); Anion Gap 4 mmol/L (8-16); Aspartate Amino Transferase 18 U/L (14-36); Bilirubin,Total 0.3 mg/dL (0.2-1.3); Blood Urea Nitrogen 34 mg/dL (7-17); Calcium 8.6 mg/dL (8.4-10.2); Carbon Dioxide 30 mmol/L (22-30); Chloride 102 mmol/L (98-107); Estimated CRCL calculation 21 ml/min; Estimated Glomerular Filt Rate 21; Glucose 327 mg/dL (65-105); Lipase 278 U/L (23-300); Potassium 4.3 mmol/L (3.4-5.0); Sodium 136 mmol/L (137-145)
[2021-01-09 01:15] VITALS: BP 134/86; PULSE 83; RESP 18; O2SAT 92
[2021-01-09 01:15] LABS: NT Pro B Type Natriuretic Pept 131 PG/ML (5-100)
[2021-01-09 01:39] LABS: Troponin I < 0.012 ng/mL (0.000-0.034)
[2021-01-09 02:01] VITALS: BP 121/74; PULSE 90; RESP 23; O2SAT 93
[2021-01-09 02:03] LABS: Add Urine Microscopic? YES; Appearance Urine Cloudy (Clear); Bacteria Urine 4+ /hpf; Bilirubin Urine Negative (Negative); Color Urine Yellow (Yellow); Glucose Urine UA 2+ mg/dL (Negative); Ketones Urine Negative (Negative); Leukocyte Esterase Ur 2+ LEU/UL (Negative); Mucus Urine Few /lpf; Nitrate Urine Negative (Negative); Protein Urine 2+ mg/dL (Negative); RBC Urine 0-2 /hpf (0-2); Specific Grav Ur 1.018 (1.001-1.035); Squamous Epithelial Cell Urine Rare /hpf (Few); Urobilinogen Urine Negative mg/dL (<2.0); WBC Clumps Urine Present /HPF; WBC Urine 31-50 /hpf
--- NOTE | 2021-01-09 02:05 | ED.GENADULT ---
HPI - General Adult General Chief complaint: Abdominal Pain Stated complaint: CP x 2 days Time Seen by Provider: 01/08/21 23:31 History of Present Illness HPI narrative: Patient is an 85-year-old female who presents ER with acute abdominal pain and chest pain. Sudden onset this evening. Called EMS. Reports blood pressure was in the 240s systolic and applied nitro placed. Patient has been very gaseous since this started and is been belching frequently and having flatus. Has some nausea as well as some shortness of breath related to this. Feels like the pressure starts in epigastrium moves up into her chest and into her back. Has found no aggravating or alleviating factors. History somewhat limited given the fact that she has dementia. Related Data Home Medications Medication Instructions Recorded Confirmed albuterol sulfate 2.5 mg Q4-6H PRN 10/08/19 09/19/20 calcitriol 0.25 mcg PO DAILY 10/08/19 09/19/20 cholecalciferol (vitamin D3) 5,000 unit PO DAILY 10/08/19 09/19/20 [Vitamin D3] multivitamin [Multiple Vitamins] 1 tablet PO DAILY 10/08/19 09/19/20 cyclobenzaprine 5 mg PO TID 07/09/20 09/19/20 donepezil 10 mg PO HS 07/09/20 09/19/20 Allergies Allergy/AdvReac Type Severity Reaction Status Date / Time adhesive tape Allergy Mild ADHESIVE/PLASTIC Verified 01/08/21 23:58 TAPE= ITCHING/ BLISTERS poison maya extract Allergy Unknown Rash Verified 01/08/21 23:58 Review of Systems Review of Systems: All systems reviewed & are unremarkable except as noted in HPI and below Cardiovascular: Cardiovascular: Reports chest pain and Denies radiating jaw, neck or arm pain Respiratory: Respiratory: Denies cough, Reports dyspnea and Denies wheezing Gastrointestinal: Gastrointestinal: Reports abdominal pain, Reports bloating, Denies diarrhea, Reports nausea and Denies vomiting PMF Past Medical History Medical History Cardiomegaly Chronic abdominal pain Chronic back pain COPD (chronic obstructive pulmonary disease) Dementia Diabetes GERD (gastroesophageal reflux disease) GI bleed HLD (hyperlipidemia) HTN (hypertension) Iron deficiency anemia Kidney disease, chronic, stage III (GFR 30-59 ml/min) Nephrolithiasis GELY (obstructive sleep apnea) Osteoarthritis Ulcer Esophageal Ventral hernia Surgical History Surgical History H/O umbilical hernia repair H/O: hysterectomy History of appendectomy History of cataract removal with insertion of prosthetic lens History of tonsillectomy and adenoidectomy Status post gastroplasty x 4 Family History Family History Sibling Heart disease Brain aneurysm Cancer Grandparent Cerebrovascular accident Sibling Family history of obesity Family history of osteoporosis Family history of cataracts Cerebrovascular accident Family history of chronic obstructive pulmonary disease Family history of multiple sclerosis Family history of cardiovascular disease Family history of malignant neoplasm Father Family history of elevated blood lipids Cerebrovascular accident Grandparent Family history of Alzheimer's disease Mother Family history of Alzheimer's disease Sibling Diabetes mellitus Family history of multiple sclerosis Family history of dementia Father Cerebrovascular accident Mother Family history of Alzheimer's disease Other Family history of allergic disorder Family history of blood dyscrasia Family history of gout Family history of kidney disease Hypertension Social History Social History Social History: Ms. Shelton lives at home in [place] with her daughter and 7 other family members to include her grand daughter and grandaughter's family. 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
[2021-01-09 02:16] VITALS: BP 117/75; PULSE 93; RESP 15; O2SAT 91
[2021-01-09 02:28] LABS: Blood Urine Negative (Negative)
[2021-01-09 02:45] VITALS: PULSE 100; RESP 23
== END 2021-01-09 03:10 | disposition home or self-care (01) ==
PROVIDERS: Emergency Provider Emergency Medicine; PCP Emergency Medicine
DX: K52.9 Noninfective gastroenteritis and colitis, unspecified (principal); N39.0 Urinary tract infection, site not specified; J44.9 Chronic obstructive pulmonary disease, unspecified; F03.90 Unspecified dementia, unspecified severity, without behavioral disturbance, psychotic disturbance, mood disturbance, and anxiety; I12.9 Hypertensive chronic kidney disease with stage 1 through stage 4 chronic kidney disease, or unspecified chronic kidney disease; E11.22 Type 2 diabetes mellitus with diabetic chronic kidney disease; N18.30 Chronic kidney disease, stage 3 unspecified; K21.9 Gastro-esophageal reflux disease without esophagitis; M19.90 Unspecified osteoarthritis, unspecified site; I51.7 Cardiomegaly; Z98.49 Cataract extraction status, unspecified eye; Z96.1 Presence of intraocular lens; R06.02 Shortness of breath; Z87.891 Personal history of nicotine dependence; R91.8 Other nonspecific abnormal finding of lung field; K43.9 Ventral hernia without obstruction or gangrene; R94.31 Abnormal electrocardiogram [ECG] [EKG]
CPT/HCPCS: 36415; 51701; 71046; 74176; 80053; 81001; 83690; 83880; 84484; 85025; 87077; 87086; 87088; 87186; 93005; 96360; 99284; J7030

== ENCOUNTER 2021-04-11 17:44 | Emergency (ER) | payer MEDICARE, SELFPAY ==
--- NOTE | ~2021-04-11 | CT_ITS ---
EXAMINATION: CT abdomen pelvis wo con EXAM DATE: 04/11/2021 20:59 INDICATION: Abdominal pain for a day. Vomiting. TECHNIQUE: Spiral CT of the abdomen and pelvis was performed following intravenous injection of 100 m L Omnipaque 350. Axial, coronal and sagittal images of the abdomen and pelvis were reviewed. The do se-length product (DLP) for this examination was 1730.15 mGy-cm. The exposure was tailored according to patient size (auto mA exposure control), and iterative reconstruction (ASIR) was used as addition al dose reduction technique. Comparison is made to prior examination from 01/09/2021. FINDINGS: Large low abdominal wall hernia containing multiple loops of small bowel in the sigmoid col on. The small bowel proximal to herniated segment is moderately distended and there is edema and flui d within the mesentery. Ileum has only small amount of contents. Appearance is most consistent with p artial small bowel obstruction. The liver, spleen, adrenal glands and pancreas are unremarkable. Gallbladder is unremarkable. No bi liary obstruction. Punctate left nephrolithiasis. Exophytic cyst off the lower pole of the left kidn ey measuring 7 cm. The uterus is not identified and has likely been surgically resected. The bladde r is unremarkable. There is no retroperitoneal or pelvic lymphadenopathy. There is mild scattered arteriosclerotic disease. There are no findings to suggest appendicitis. Gastroesophageal surgical changes, possible Niesen fu ndoplication. Scattered small bowel and colonic diverticulosis. There is expected amount of colonic s tool. No free intraperitoneal gas. The heart is normal in size. There are no pericardial or pleu ral effusions. Scattered basilar granuloma. There are no osteoblastic or osteolytic lesions identif ied. IMPRESSION: 1. Large lower abdominal wall hernia containing small and large bowel, and probably causing partial small bowel obstruction. Reviewed, dictated and finalized at location A. IMPRESSION: 1. Large lower abdominal wall hernia containing small and large bowel, and pro bably causing partial small bowel obstruction.
[2021-04-11 17:54] VITALS: BP 167/83; PULSE 106; RESP 16; TEMP 36.2; O2SAT 97
[2021-04-11 18:09] LABS: Basophils Percent Auto 0.4 % (0.2-1.2); Eosinophils Absolute Auto 0.2 K/mm3 (0-0.3); Eosinophils Percent Auto 2.5 % (0-4.4); Hematocrit 33.6 % (37.0-47.0); Hemoglobin 10.9 g/dL (12.0-15.0); Immature Granulocyte Absolute 0.03 K/mm3 (0.00-0.031); Immature Granulocyte Percent A 0.4 % (0-0.5); Lymphocytes Absolute Auto 1.33 K/mm3 (0.9-3.2); Lymphocytes Percent Auto 15.6 % (18.3-44.2); Mean Corpuscular HGB Conc 32.4 g/dl (32-36); Mean Corpuscular Hemoglobin 27.9 pg (26-34); Mean Corpuscular Volume 86.2 fl (80-100); Mean Platelet Volume 10.2 fl (7.4-10.4); Monocytes Absolute Auto 0.5 K/mm3 (0.1-0.6); Monocytes Percent Auto 6.3 % (2.6-8.5); Neutrophils Absolute Auto 6.4 K/mm3 (1.3-6.7); Neutrophils Percent Auto 74.8 % (45.5-73.1); Platelet Count Result 255 k/mm3 (150-375); Red Cell Distribution Width 14.6 % (11.5-14.5); White Blood Count 8.6 K/mm3 (4.5-10.0)
[2021-04-11 18:15] LABS: Alanine Aminotransferase 13 U/L (4-35); Albumin Level 3.4 g/dL (3.5-5.1); Alkaline Phosphatase 80 U/L (38-126); Anion Gap 3 mmol/L (8-16); Aspartate Amino Transferase 19 U/L (14-36); Bilirubin,Total 0.2 mg/dL (0.2-1.3); Blood Urea Nitrogen 28 mg/dL (7-17); Calcium 8.7 mg/dL (8.4-10.2); Carbon Dioxide 28 mmol/L (22-30); Chloride 102 mmol/L (98-107); Estimated CRCL calculation 28 ml/min; Estimated Glomerular Filt Rate 29; Glucose 321 mg/dL (65-105); Lipase 62 U/L (23-300); Potassium 4.7 mmol/L (3.4-5.0); Sodium 133 mmol/L (137-145)
[2021-04-11 20:33] VITALS: BP 173/105; PULSE 95; RESP 15; O2SAT 95
[2021-04-11] MEDS: SODIUM CHLORIDE 0.9% IV 1,000 ML 999 ML IV CONT (21:15)
[2021-04-11] MEDS: MORPHINE SULFATE (*CRX) 4 MG/ML INJ IV PUSH (21:16)
[2021-04-11] MEDS: ONDANSETRON INJ 4 MG/2 ML VIAL IV PUSH (21:17)
[2021-04-11] MEDS: DICYCLOMINE HCL INJ 20 MG/2 ML VIAL IM (21:20)
[2021-04-11 21:33] LABS: Lactic Acid Reflex 1.5 mmol/L (0.7-2.1)
--- NOTE | 2021-04-11 21:35 | ED.GENADULT ---
HPI - General Adult General Chief complaint: Abdominal Pain Stated complaint: abd pain, vomiting Time Seen by Provider: 04/11/21 20:21 History of Present Illness HPI narrative: Patient is a 85-year-old female who presents to the emergency department with chief complaint of abdominal pain. Patient reports that this discomfort started yesterday reports that is all throughout her abdomen and reports that she is also had nausea and is felt as though she is needed to vomit. Patient does report that she has had a bowel movement with this and has not had several large normal bowel movements since she is arrived in the emergency department. The patient denies fever reports has had multiple abdominal surgeries before in the past and also has a large abdominal wall hernia. Patient reports that the pain is not improved by anything and reports that it is worsened with movement. Related Data Home Medications Medication Instructions Recorded Confirmed calcitriol 0.25 mcg PO DAILY 10/08/19 09/19/20 cholecalciferol (vitamin D3) 5,000 unit PO DAILY 10/08/19 09/19/20 [Vitamin D3] multivitamin [Multiple Vitamins] 1 tablet PO DAILY 10/08/19 09/19/20 cyclobenzaprine 5 mg PO TID 07/09/20 09/19/20 Allergies Allergy/AdvReac Type Severity Reaction Status Date / Time adhesive tape Allergy Mild ADHESIVE/PLASTIC Verified 04/11/21 20:35 TAPE= ITCHING/ BLISTERS poison maya extract Allergy Unknown Rash Verified 04/11/21 20:35 Review of Systems Review of Systems: Narrative: A 10 system review of systems was completed on the patient and is negative except for what is stated in the HPI. Nursing and ancillary documentation was reviewed. [facility] Past Medical History Medical History Cardiomegaly Chronic abdominal pain Chronic back pain COPD (chronic obstructive pulmonary disease) Dementia Diabetes GERD (gastroesophageal reflux disease) GI bleed HLD (hyperlipidemia) HTN (hypertension) Iron deficiency anemia Kidney disease, chronic, stage III (GFR 30-59 ml/min) Nephrolithiasis GELY (obstructive sleep apnea) Osteoarthritis Ulcer Esophageal Ventral hernia Surgical History Surgical History H/O umbilical hernia repair H/O: hysterectomy History of appendectomy History of cataract removal with insertion of prosthetic lens History of tonsillectomy and adenoidectomy Status post gastroplasty x 4 Family History Family History Sibling Heart disease Brain aneurysm Cancer Grandparent Cerebrovascular accident Sibling Family history of obesity Family history of osteoporosis Family history of cataracts Cerebrovascular accident Family history of chronic obstructive pulmonary disease Family history of multiple sclerosis Family history of cardiovascular disease Family history of malignant neoplasm Father Family history of elevated blood lipids Cerebrovascular accident Grandparent Family history of Alzheimer's disease Mother Family history of Alzheimer's disease Sibling Diabetes mellitus Family history of multiple sclerosis Family history of dementia Father Cerebrovascular accident Mother Family history of Alzheimer's disease Other Family history of allergic disorder Family history of blood dyscrasia Family history of gout Family history of kidney disease Hypertension Social History Social History Social History: Ms. Shelton lives at home in [place] with her daughter and 7 other family members to include her grand daughter and grandaughter's family. 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 She reports ambulating mostly with a cane but also h
[2021-04-11 22:21] VITALS: BP 123/81; PULSE 86; RESP 19; TEMP 36.8; O2SAT 98
--- NOTE | 2021-04-11 22:23 | PC.NURSE ---
Spoke w/ Delmer at [facility] for triage. States he will call with a bed.
[2021-04-11 22:27] LABS: Add Urine Microscopic? YES; Appearance Urine Cloudy (Clear); Bacteria Urine Trace /hpf; Bilirubin Urine Negative (Negative); Blood Urine Negative (Negative); Color Urine Yellow (Yellow); Glucose Urine UA 1+ mg/dL (Negative); Ketones Urine Negative (Negative); Leukocyte Esterase Ur Negative LEU/UL (Negative); Nitrate Urine Negative (Negative); Protein Urine 2+ mg/dL (Negative); RBC Urine 0-2 /hpf (0-2); Specific Grav Ur 1.018 (1.001-1.035); Squamous Epithelial Cell Urine Many /hpf (Few); WBC Urine 0-3 /hpf
--- NOTE | 2021-04-11 22:50 | PC.NURSE ---
Pt. accepted to RM [id number] at [facility] Report to [phone]. RN attempted to call report at this time.
[2021-04-11 23:01] VITALS: BP 112/94; PULSE 92; RESP 19; O2SAT 98
--- NOTE | 2021-04-11 23:07 | PC.NURSE ---
called [facility] to transport patient. ETA [id number]
--- NOTE | 2021-04-11 23:16 | PC.NURSE ---
Pt. daughter left phone number to be contacted as needed [phone]
--- NOTE | 2021-04-11 23:20 | PC.NURSE ---
called [facility] to request transport. declined
--- NOTE | 2021-04-12 | PC.NURSE ---
Addendum entered by Yanelis Zhang 04/12/21 00:08: [facility] called and declined. They are swamped. Original Note: called [facility] at [phone] to request transport. [facility] with check availability and call back. [facility] has not called back.
--- NOTE | 2021-04-12 00:14 | PC.NURSE ---
called [facility] for ETA update. ETA [id number] [phone]
--- NOTE | 2021-04-12 00:23 | PC.NURSE ---
called [facility] to request transport. ETA 30-45 minutes.
[2021-04-12 00:39] VITALS: BP 114/61; PULSE 100; RESP 16; O2SAT 91
== END 2021-04-12 00:55 | disposition short-term general hospital (02) ==
PROVIDERS: Emergency Medicine; Emergency Provider Emergency Medicine; PCP Emergency Medicine
DX: K56.600 Partial intestinal obstruction, unspecified as to cause (principal); K43.9 Ventral hernia without obstruction or gangrene; Z87.891 Personal history of nicotine dependence; J44.9 Chronic obstructive pulmonary disease, unspecified; F03.90 Unspecified dementia, unspecified severity, without behavioral disturbance, psychotic disturbance, mood disturbance, and anxiety; G89.29 Other chronic pain; E11.9 Type 2 diabetes mellitus without complications; K21.9 Gastro-esophageal reflux disease without esophagitis; E78.5 Hyperlipidemia, unspecified; I12.9 Hypertensive chronic kidney disease with stage 1 through stage 4 chronic kidney disease, or unspecified chronic kidney disease; N18.30 Chronic kidney disease, stage 3 unspecified; M19.90 Unspecified osteoarthritis, unspecified site
CPT/HCPCS: 36415; 74176; 80053; 81001; 83605; 83690; 85025; 96361; 96372; 96374; 96375; 99285; J0500; J2270; J2405; J7030

== ENCOUNTER 2021-04-22 23:53 | Emergency (ER) | payer MEDICARE, SELFPAY ==
--- NOTE | ~2021-04-22 | CT_ITS ---
EXAMINATION: CT abdomen pelvis wo con DATE: 04/23/2021 02:08 INDICATION: Abdominal pain. TECHNIQUE: Computed tomography (CT) of the abdomen and pelvis was performed without intravenous contr ast. Automated exposure control and iterative reconstruction technique were employed. The dose-length product was 1504.52 mGy-cm. COMPARISON: CT abdomen and pelvis 04/11/2021 FINDINGS: The visualized portions of the lung bases demonstrate mild atelectasis and mild chronic catarina g disease. There is mild bronchiectasis bilaterally. Calcified pulmonary nodules and calcified hilar and mediastinal lymph nodes are consistent with old granulomatous disease. No pleural effusion. The h eart size is normal. There are coronary artery calcifications. No pericardial effusion. The central p ulmonary arteries are enlarged, consistent with pulmonary arterial hypertension. There are surgical c hanges in the stomach. Calcifications in the liver and spleen are consistent with old granulomatous d isease. The gallbladder, pancreas, and adrenal glands are normal. There are cysts in the kidneys corinne uring up to 6.6 cm on the left. There are masses in the kidneys measuring up to 10 mm on the right me asuring soft tissue attenuation. There is a 4 mm stone in left kidney. There is a large ventral herni a containing nonobstructed small and large bowel. The appendix is not visualized. There is wall thick ening of some small bowel loops with mesenteric fat stranding. There is a small volume of ascites. Pe lvic floor relaxation is noted. There are no pathologically enlarged lymph nodes. There is severe tho racolumbar spondylosis. IMPRESSION: 1. Large ventral hernia containing nonobstructed small and large bowel. 2. Wall thickening of small bowel loops, consistent with enteritis. 3. Small volume of ascites. 4. Masses in the kidneys measuring up to 10 mm on the right measuring soft tissue attenuation, which may be hemorrhagic cysts or less likely neoplasm(s). Given the patient's chronic kidney disease, cons ider CT in 6 months. Reviewed, dictated and finalized at location B. IMPRESSION: 1. Large ventral hernia containing nonobstructed small and large bowel. 2. Wall thickening of small bowel loops, consistent with enteritis. 3. Small volume of ascites. 4. Masses in the kidneys measuring up to 10 mm on the right measuring soft tiss ue attenuation, which may be hemorrhagic cysts or less likely neoplasm(s). Give n the patient's chronic kidney disease, consider CT in 6 months.
[2021-04-22 23:53] VITALS: BP 114/67; PULSE 81; RESP 19; TEMP 36.9; O2SAT 95
[2021-04-23] VITALS (9 sets, daily range): BP systolic 98–148; BP diastolic 49–75; PULSE 67–79; RESP 16–31; O2SAT 91–99
--- NOTE | 2021-04-23 | ECG_ITS ---
Measurements Intervals [place] Rate: 74 P: 35 OR: 179 QRS: -24 QRSD: 89 T: 22 QT: 402 QTc: 449 Interpretive Statements SINUS RHYTHM ATRIAL COUPLET POOR R WAVE PROGRESSION, ANTERIOR LEADS CONSIDER INFERIOR INFARCT, AGE INDETERMINATE BASELINE ARTIFACT- I, II, III, AVR, AVL, AVF, V1-V6 ABNORMAL ECG Electronically Signed On 04-23-2021 6:04:40 CDT by Mendoza Nunes D.O.
[2021-04-23] MEDS: ONDANSETRON INJ 4 MG/2 ML VIAL IV PUSH (00:07)
--- NOTE | 2021-04-23 00:22 | ED.DIZZY ---
HPI - Dizziness General Chief Complaint: Dizziness Stated Complaint: weakness, dizzy, nausea, was sweaty and weak (BM) Time Seen by Provider: 04/22/21 23:54 History of Present Illness HPI Narrative: 85 yo female presents from home for weakness and dizziness. She reports that she was straining to have a bowel movement. She then became light headed and diaphoretic. She also reports some epigastric pain. She did have a bowel movement, no blood noted. She was recently here with similar symptoms and found to have a large obstructed hernia. She was transferred to [facility]. There they opted for medical management. Related Data Home Medications Medication Instructions Recorded Confirmed calcitriol 0.25 mcg PO DAILY 10/08/19 09/19/20 cholecalciferol (vitamin D3) 5,000 unit PO DAILY 10/08/19 09/19/20 [Vitamin D3] multivitamin [Multiple Vitamins] 1 tablet PO DAILY 10/08/19 09/19/20 cyclobenzaprine 5 mg PO TID 07/09/20 09/19/20 carvedilol 04/12/21 04/12/21 Allergies Allergy/AdvReac Type Severity Reaction Status Date / Time adhesive tape Allergy Mild ADHESIVE/PLASTIC Verified 04/23/21 01:50 TAPE= ITCHING/ BLISTERS poison maya extract Allergy Unknown Rash Verified 04/23/21 01:50 Review of Systems Review of Systems: All systems reviewed & are unremarkable except as noted in HPI and below Constitutional: Constitutional: Denies fever(s) and Reports weakness Eyes: Eyes: Reports no additional eye complaints ENT: Reports dizziness Cardiovascular: Cardiovascular: Denies chest pain Respiratory: Respiratory: Denies dyspnea Gastrointestinal: Gastrointestinal: Reports abdominal pain, Reports nausea and Denies vomiting Genitourinary: Genitourinary: Denies hematuria and Denies dysuria Neurologic: Denies syncope [facility] Past Medical History Medical History Cardiomegaly Chronic abdominal pain Chronic back pain COPD (chronic obstructive pulmonary disease) Dementia Diabetes GERD (gastroesophageal reflux disease) GI bleed HLD (hyperlipidemia) HTN (hypertension) Iron deficiency anemia Kidney disease, chronic, stage III (GFR 30-59 ml/min) Nephrolithiasis GELY (obstructive sleep apnea) Osteoarthritis Ulcer Esophageal Ventral hernia Surgical History Surgical History H/O umbilical hernia repair H/O: hysterectomy History of appendectomy History of cataract removal with insertion of prosthetic lens History of tonsillectomy and adenoidectomy Status post gastroplasty x 4 Family History Family History Sibling Heart disease Brain aneurysm Cancer Grandparent Cerebrovascular accident Sibling Family history of obesity Family history of osteoporosis Family history of cataracts Cerebrovascular accident Family history of chronic obstructive pulmonary disease Family history of multiple sclerosis Family history of cardiovascular disease Family history of malignant neoplasm Father Family history of elevated blood lipids Cerebrovascular accident Grandparent Family history of Alzheimer's disease Mother Family history of Alzheimer's disease Sibling Diabetes mellitus Family history of multiple sclerosis Family history of dementia Father Cerebrovascular accident Mother Family history of Alzheimer's disease Other Family history of allergic disorder Family history of blood dyscrasia Family history of gout Family history of kidney disease Hypertension Social History Social History Social History: Ms. Shelton lives at home in [place] with her daughter and 7 other family members to include her grand daughter and grandaughter's family. 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
[2021-04-23] MEDS: SODIUM CHLORIDE 0.9% IV 1,000 ML 999 ML IV CONT (00:31)
--- NOTE | 2021-04-23 01:30 | PC.NURSE ---
Tech unable to get lab work on pt, notified RN to draw at this time.
[2021-04-23 01:39] LABS: Basophils Absolute Auto 0.1 K/mm3 (0.0-0.1); Basophils Percent Auto 0.4 % (0.2-1.2); Eosinophils Absolute Auto 0.3 K/mm3 (0-0.3); Eosinophils Percent Auto 2.6 % (0-4.4); Hematocrit 39.3 % (37.0-47.0); Hemoglobin 12.2 g/dL (12.0-15.0); Immature Granulocyte Absolute 0.06 K/mm3 (0.00-0.031); Immature Granulocyte Percent A 0.5 % (0-0.5); Lymphocytes Absolute Auto 1.52 K/mm3 (0.9-3.2); Lymphocytes Percent Auto 13.4 % (18.3-44.2); Mean Corpuscular Hemoglobin 28.3 pg (26-34); Mean Corpuscular Volume 91.2 fl (80-100); Mean Platelet Volume 9.8 fl (7.4-10.4); Monocytes Absolute Auto 0.8 K/mm3 (0.1-0.6); Neutrophils Absolute Auto 8.6 K/mm3 (1.3-6.7); Neutrophils Percent Auto 76.1 % (45.5-73.1); Platelet Count Result 321 k/mm3 (150-375); Red Blood Count 4.31 M/mm3 (4.2-5.4); Red Cell Distribution Width 15.2 % (11.5-14.5); White Blood Count 11.4 K/mm3 (4.5-10.0)
[2021-04-23 01:44] LABS: Add Urine Microscopic? YES; Appearance Urine Clear (Clear); Bacteria Urine Trace /hpf; Bilirubin Urine Negative (Negative); Blood Urine Negative (Negative); Color Urine Yellow (Yellow); Glucose Urine UA 1+ mg/dL (Negative); Ketones Urine Negative (Negative); Leukocyte Esterase Ur Trace LEU/UL (Negative); Mucus Urine Rare /lpf; Nitrate Urine Negative (Negative); Protein Urine 2+ mg/dL (Negative); RBC Urine 0-2 /hpf (0-2); Specific Grav Ur 1.017 (1.001-1.035); Squamous Epithelial Cell Urine Occasional /hpf (Few); WBC Urine 0-3 /hpf
[2021-04-23 01:48] LABS: Alanine Aminotransferase 12 U/L (4-35); Albumin Level 3.3 g/dL (3.5-5.1); Alkaline Phosphatase 67 U/L (38-126); Anion Gap 0 mmol/L (8-16); Aspartate Amino Transferase 19 U/L (14-36); Bilirubin,Total 0.3 mg/dL (0.2-1.3); Blood Urea Nitrogen 31 mg/dL (7-17); Calcium 9.3 mg/dL (8.4-10.2); Carbon Dioxide 36 mmol/L (22-30); Chloride 98 mmol/L (98-107); Estimated Glomerular Filt Rate 24; Glucose 236 mg/dL (65-105); INR 0.9; Lipase 118 U/L (23-300); Potassium 4.7 mmol/L (3.4-5.0); Prothrombin Time 13.1 Seconds (11.1-14.7); Sodium 134 mmol/L (137-145)
[2021-04-23 01:49] LABS: Partial Thromboplastin Time 24.1 SECONDS (22.3-36.8)
[2021-04-23] MEDS: HYDROcodone/acetaminophen (*CRX) 5-325 MG TABLET 1 TAB PO (03:43)
== END 2021-04-23 03:59 | disposition home or self-care (01) ==
PROVIDERS: Emergency Provider Emergency Medicine; PCP Emergency Medicine
DX: R55 Syncope and collapse (principal); J44.9 Chronic obstructive pulmonary disease, unspecified; F03.90 Unspecified dementia, unspecified severity, without behavioral disturbance, psychotic disturbance, mood disturbance, and anxiety; E78.5 Hyperlipidemia, unspecified; E11.22 Type 2 diabetes mellitus with diabetic chronic kidney disease; I12.9 Hypertensive chronic kidney disease with stage 1 through stage 4 chronic kidney disease, or unspecified chronic kidney disease; N18.30 Chronic kidney disease, stage 3 unspecified; D50.9 Iron deficiency anemia, unspecified; K21.9 Gastro-esophageal reflux disease without esophagitis; Z87.442 Personal history of urinary calculi; G47.33 Obstructive sleep apnea (adult) (pediatric); M19.90 Unspecified osteoarthritis, unspecified site; Z98.49 Cataract extraction status, unspecified eye; Z96.1 Presence of intraocular lens; Z87.891 Personal history of nicotine dependence; Z79.4 Long term (current) use of insulin
CPT/HCPCS: 36415; 51701; 74176; 80053; 81001; 83690; 85025; 85610; 85730; 86850; 86900; 86901; 93005; 96361; 96374; 99284; A9270; J2405; J7030

== ENCOUNTER 2021-05-24 14:48 | Outpatient (CLI) | payer MEDICARE, SELFPAY ==
[2021-05-24 15:22] LABS: Basophils Percent Auto 0.6 % (0.2-1.2); Eosinophils Absolute Auto 0.3 K/mm3 (0-0.3); Eosinophils Percent Auto 4.5 % (0-4.4); Hematocrit 34.8 % (37.0-47.0); Hemoglobin 11.2 g/dL (12.0-15.0); Immature Granulocyte Absolute 0.02 K/mm3 (0.00-0.031); Immature Granulocyte Percent A 0.3 % (0-0.5); Lymphocytes Absolute Auto 1.73 K/mm3 (0.9-3.2); Lymphocytes Percent Auto 25.2 % (18.3-44.2); Mean Corpuscular HGB Conc 32.2 g/dl (32-36); Mean Corpuscular Hemoglobin 28.5 pg (26-34); Mean Corpuscular Volume 88.5 fl (80-100); Monocytes Absolute Auto 0.5 K/mm3 (0.1-0.6); Monocytes Percent Auto 7.7 % (2.6-8.5); Neutrophils Absolute Auto 4.2 K/mm3 (1.3-6.7); Neutrophils Percent Auto 61.7 % (45.5-73.1); Platelet Count Result 241 k/mm3 (150-375); Red Blood Count 3.93 M/mm3 (4.2-5.4); Red Cell Distribution Width 14.6 % (11.5-14.5); White Blood Count 6.9 K/mm3 (4.5-10.0)
[2021-05-24 15:33] LABS: Albumin Level 3.7 g/dL (3.5-5.1); Anion Gap 4 mmol/L (8-16); Blood Urea Nitrogen 32 mg/dL (7-17); Calcium 9.7 mg/dL (8.4-10.2); Carbon Dioxide 34 mmol/L (22-30); Chloride 101 mmol/L (98-107); Estimated Glomerular Filt Rate 24; Glucose 156 mg/dL (65-105); Phosphorus 3.4 mg/dL (2.5-4.5); Potassium 4.9 mmol/L (3.4-5.0); Sodium 139 mmol/L (137-145)
[2021-05-24 16:57] LABS: Creatinine Urine 175.5 mg/dL; Total Protein Urine Random 144 mg/dL; Ur Ttl Prot Creatinine Ratio 0.82 mg/mg (0-0.20)
[2021-05-24 19:33] LABS: Parathyroid Intact 48.4 pg/mL (7.5-53.5); Vitamin D 25 Hydroxy 62.8 ng/mL
== END 2021-05-24 14:49 | disposition home or self-care (01) ==
LOC: ANHLAB 14:59
PROVIDERS: PCP Emergency Medicine
DX: N18.32 Chronic kidney disease, stage 3b (principal)
CPT/HCPCS: 36415; 80069; 82306; 82570; 83970; 84156; 85025

== ENCOUNTER 2021-05-30 15:16 | Outpatient (CLI) | payer MEDICARE, SELFPAY | END 2021-05-30 15:17 | disposition home or self-care (01) | PROVIDERS: PCP Emergency Medicine; Visit Provider Emergency Medicine | DX: R10.2 Pelvic and perineal pain (principal) | CPT/HCPCS: 87077; 87086; 87186 ==

== ENCOUNTER 2021-05-31 22:03 | Inpatient (IN) | payer MEDICARE, SELFPAY ==
[2021-05-31] VITALS (7 sets, daily range): BP systolic 122–154; BP diastolic 66–88; PULSE 75–84; RESP 16–21; TEMP 36.9; O2SAT 95–99
--- NOTE | ~2021-05-31 | XR_ITS ---
EXAMINATION: XR foot LT 2V INDICATION: Left foot pain TECHNIQUE: Two views of the left foot are obtained. COMPARISON: 02/02/2009 FINDINGS: The bones are osteopenic which limits the sensitivity for fracture however none is seen. Th ere is mild polyarticular osteoarthritis. A plantar calcaneal enthesophyte is noted. IMPRESSION: 1. No acute osseous abnormality. Reviewed, dictated and finalized at location D.
--- NOTE | ~2021-05-31 | MR_ITS ---
EXAMINATION: MR brain/brain stem wo con EXAM DATE: 06/01/2021 17:13 INDICATION: Left-sided neglect (arm and leg), right-sided gaze . TECHNIQUE: Magnetic resonance imaging (MRI) of the brain/brain stem obtained without contrast. [place] al T1, axial diffusion, gradient echo (T2*), T1, T2, FLAIR sequences obtained. Comparison is made to prior examination from 07/10/2020. FINDINGS: There is moderate-sized acute right occipital lobe infarction. There is no acute hemorrhage seen on the T2*, a hemosiderin sensitive sequence. No intraparenchymal brain mass lesion. There is mild to moderate periventricular and subcortical T2/FLAIR signal hyperintensity, nonspecific but prob ably related to small vessel ischemic disease (microangiopathy). There is moderate prominence of th e sulci and ventricles related to cerebral atrophy. There are no extra-axial collections. Flow voi ds are seen in the cerebral arteries on the T2-weighted sequences consistent with their expected salazar ncy. Patient has had bilateral ocular lens surgery. Soft tissue is unremarkable. IMPRESSION: 1. Moderate-sized acute right occipital lobe infarction. 2. Chronic age related findings. Reviewed, dictated and finalized at location A.
--- NOTE | ~2021-05-31 | CT_ITS ---
EXAMINATION: CT brain wo con EXAM DATE: 05/31/2021 22:52 INDICATION: Headache, confusion. History of dementia. Weakness. TECHNIQUE: Spiral CT of the head was performed without contrast. Axial, coronal and sagittal images were reviewed. The dose-length product (DLP) for this examination was 605.33 mGy-cm. The exposure w as tailored according to patient size, and iterative reconstruction (ASIR) was used as additional dos e reduction technique. Comparison is made to prior examination from 07/11/2020. FINDINGS: There is no acute intraparenchymal hemorrhage. No evidence of intraparenchymal brain mass lesion. No evidence of acute infarction. Please note that initial head CT has limited sensitivity f or small or acute infarctions. There is moderate periventricular and subcortical hypodensity, nonspec ific but probably related to small vessel ischemic disease. There is moderate to severe prominence of the sulci and ventricles related to cerebral atrophy. There is intracranial carotid arterioscler osis. There are no extra-axial collections. There is no mass effect or midline shift. The orbits a re unremarkable. Soft tissue is unremarkable. The visualized sinuses and mastoid air cells are well aerated. IMPRESSION: 1. No acute intracranial findings. 2. Chronic age related findings. Reviewed, dictated and finalized at location G.
--- NOTE | ~2021-05-31 | XR_ITS ---
XR ankle RT 2V DATE: 06/05/2021 05:47 INDICATION: Right ankle pain TECHNIQUE: 2 views COMPARISON: None FINDINGS: Diffuse osteopenia. Prominent plantar and mild posterior calcaneal enthesopathy. No fracture or dislocation of the ankle or disruption of the ankle mortise is evident. No periosteal reaction or bone destruction. IMPRESSION: Osteopenia Calcaneal enthesopathy Reviewed, dictated and finalized at location A.
--- NOTE | ~2021-05-31 | XR_ITS ---
EXAMINATION: XR barium swallow modified DATE: 06/02/2021 09:39 INDICATION: Stroke, left-sided weakness TECHNIQUE: Modified barium esophagram was performed by myself to administered fluoroscopy, in conjun ction with speech pathologist who administered barium in varying consistencies as per speech patholog ist documentation. This was recorded on tape. A single fluoroscopic spot image was recorded. The DAP for this procedure was 3.4 Gycm2. Fluoroscopy exposure time was 3.5 minutes. FINDINGS: Oral stage: Adequate function. Pharyngeal phase: Adequate function. Laryngeal penetration: Present. Aspiration: None. Laryngeal sensitivity: Present. IMPRESSION: Laryngeal penetration without aspiration. Please refer to speech pathologist findings and specific feeding recommendations. Reviewed, dictated and finalized at location A. IMPRESSION: Laryngeal penetration without aspiration. Please refer to speech pa thologist findings and specific feeding recommendations.
--- NOTE | ~2021-05-31 | CT_ITS ---
EXAMINATION: CT brain wo con DATE: 06/01/2021 12:07 INDICATION: Mental status change. TECHNIQUE: Computed tomography (CT) of the head was performed without intravenous contrast. The mA wa s adjusted according to patient size. Iterative reconstruction technique was employed. The dose-lengt h product was 605.33 mGy-cm. COMPARISON: Head CT 05/31/2021 FINDINGS: There are scattered areas of low attenuation in the cerebral white matter. There is no intr acranial hemorrhage, acute infarction, or abnormal intracranial mass lesion. The ventricles are eliseo l in size. There are likely changes of ocular lens replacement surgeries. There is mild mucosal thick ening in the paranasal sinuses. The mastoid air cells are normal. IMPRESSION: 1. Stable moderate nonspecific cerebral white matter disease, which likely represents chronic small v essel ischemic disease. Reviewed, dictated and finalized at location A. IMPRESSION: 1. Stable moderate nonspecific cerebral white matter disease, which likely repr esents chronic small vessel ischemic disease.
--- NOTE | ~2021-05-31 | XR_ITS ---
XR wrist LT 2V DATE: 06/05/2021 05:47 INDICATION: Left wrist pain TECHNIQUE: 2 views COMPARISON: None FINDINGS: There is diffuse osteopenia. Mild chondrocalcinosis at the triangular cartilage. There is prominent joint space narrowing and spurring at the first carpometacarpal joint consistent w ith severe osteoarthritis. No recent fracture or dislocation is evident. No periosteal reaction or bone destruction. IMPRESSION: Severe osteoarthritis at first carpal metacarpal joint Osteopenia Reviewed, dictated and finalized at location A.
--- NOTE | ~2021-05-31 | US_ITS ---
EXAMINATION: US carotid duplex BI EXAM DATE: 06/04/2021 10:45 INDICATION: Stroke. Acute right occipital lobe infarction, moderate in size on MRI. TECHNIQUE: Grayscale, color and pulsed Doppler images of the cervical carotid arteries were obtained . The degree of vessel stenosis is placed in one of the following categories: normal, <50% stenosis, 50-69% stenosis, >=70% stenosis but less than near-occlusion, near-occlusion, or occlusion. Note that percent stenosis relative to normal distal artery lumen diameter is indirectly measured from velocit y measurements as described by Peter, et al. Radiology 2003; [id number]:340-346. Comparison is made to prior examination from 05/03/2014. FINDINGS: RIGHT SIDE: Right common carotid artery peak systolic velocity (PSV in cm/s): 63 Right bulb/internal carotid artery peak systolic velocity (PSV in cm/s): 61 Right internal carotid artery end diastolic velocity (EDV in cm/s): 16 Right ICA/CCA peak systolic ratio: 1.0 Right external carotid artery peak systolic velocity (PSV in cm/s): 61 Right vertebral artery antegrade flow: yes There is no focal plaque identified. LEFT SIDE: Left common carotid artery peak systolic velocity (PSV in cm/s): 83 Left bulb/internal carotid artery peak systolic velocity (PSV in cm/s): 63 Left internal carotid artery end diastolic velocity (EDV in cm/s): 11 Left ICA/CCA peak systolic ratio: 0.8 Left external carotid artery peak systolic velocity (PSV in cm/s): 100 Left vertebral artery antegrade flow: yes There is no focal plaque identified. IMPRESSION: 1. Normal right internal carotid artery. 2. Normal left internal carotid artery. Reviewed, dictated and finalized at location A.
--- NOTE | ~2021-05-31 | XR_ITS ---
EXAMINATION: XR chest 2V EXAM DATE: 05/31/2021 22:20 INDICATION: Weakness, history COPD, hypertension. Dementia. TECHNIQUE: Frontal and lateral projections of the chest obtained and reviewed. Comparison is made to prior examination from 01/09/2021. FINDINGS: There is cardiomegaly. The lungs are clear. There are no pleural effusions. The cardiomed iastinal silhouette is within normal limits. There is no pneumothorax suspected. The bones and soft tissues are unremarkable. IMPRESSION: Cardiomegaly. Reviewed, dictated and finalized at location G. IMPRESSION: Cardiomegaly.
--- NOTE | 2021-05-31 22:06 | ECG_ITS ---
Measurements Intervals [place] Rate: 77 P: 69 IN: 193 QRS: -24 QRSD: 88 T: 35 QT: 389 QTc: 442 Interpretive Statements SINUS RHYTHM POOR R WAVE PROGRESSION, ANTERIOR LEADS CONSIDER INFERIOR INFARCT, AGE INDETERMINATE BASELINE ARTIFACT- I, III, AVL ABNORMAL ECG Electronically Signed On 06-01-2021 7:40:54 CDT by Mendoza Nunes D.O.
--- NOTE | 2021-05-31 22:12 | PC.NURSE ---
Pt to imaging at this time.
--- NOTE | 2021-05-31 22:33 | ED.WEAKNESS ---
HPI - Weakness General Chief complaint: Weakness Stated complaint: Weakness Time Seen by Provider: 05/31/21 22:14 Source: patient, family and RN notes reviewed Mode of arrival: ambulatory Limitations: no limitations History of Present Illness HPI Narrative: This is an 85 year old female who presents with daughter for evaluation of weakness. Patient's daughter is at bedside. She states patient has been confused for 1 days. She reports she is talking about her mother who has passed so she thinks she has a UTI. Patient also seemed to have difficulty getting of the toilet tonight. She states patient had an appointment with her primary care physician yesterday and she had a Urinalysis performed but she is unsure of the results. Patient reports frontal headache that improved after taking Tylenol. She denies nausea, vomiting, abdominal pain, chest pain, sob or cough. She also denies dysuria. Related Data Home Medications Medication Instructions Recorded Confirmed calcitriol 0.25 mcg PO DAILY 10/08/19 06/01/21 cholecalciferol (vitamin D3) 5,000 unit PO DAILY 10/08/19 06/01/21 [Vitamin D3] multivitamin [Multiple Vitamins] 1 tablet PO DAILY 10/08/19 06/01/21 cyclobenzaprine 5 mg PO TID 07/09/20 06/01/21 carvedilol 6.25 mg PO DAILY 04/12/21 06/01/21 allopurinol 100 mg PO BID 06/01/21 06/01/21 buspirone 30 mg PO BID 06/01/21 06/01/21 citalopram 20 mg PO DAILY 06/01/21 06/01/21 donepezil 10 mg PO DAILY 06/01/21 06/01/21 furosemide 40 mg PO DAILY 06/01/21 06/01/21 insulin asp prt-insulin aspart 35 unit SUBCUT QAM 06/01/21 06/01/21 [Novolog Mix 70-30FlexPen U-100] insulin asp prt-insulin aspart 40 unit SUBCUT QPM 06/01/21 06/01/21 [Novolog Mix 70-30FlexPen U-100] levothyroxine 175 mcg PO DAILY 06/01/21 06/01/21 lisinopril 10 mg PO DAILY 06/01/21 06/01/21 omeprazole 20 mg PO DAILY 06/01/21 06/01/21 potassium chloride 20 meq PO DAILY 06/01/21 06/01/21 simvastatin 40 mg PO HS 06/01/21 06/01/21 Allergies Allergy/AdvReac Type Severity Reaction Status Date / Time adhesive tape Allergy Mild ADHESIVE/PLASTIC Verified 05/31/21 22:11 TAPE= ITCHING/ BLISTERS poison maya extract Allergy Unknown Rash Verified 05/31/21 22:11 Review of Systems Review of Systems: All systems reviewed & are unremarkable except as noted in HPI and below PMFSH Past Medical History Medical History (Updated 06/01/21 @ 06:29 by Melissa Echavarria DO) Cardiomegaly Chronic abdominal pain Chronic back pain CKD (chronic kidney disease) stage 4, GFR 15-29 ml/min COPD (chronic obstructive pulmonary disease) Dementia Diabetes GERD (gastroesophageal reflux disease) GI bleed HLD (hyperlipidemia) HTN (hypertension) Iron deficiency anemia Nephrolithiasis GELY (obstructive sleep apnea) Intolerant to CPAP Osteoarthritis Ulcer Esophageal Ventral hernia Surgical History Surgical History H/O umbilical hernia repair H/O: hysterectomy History of appendectomy History of cataract removal with insertion of prosthetic lens History of tonsillectomy and adenoidectomy Status post gastroplasty x 4 Family History Family History (Updated 06/01/21 @ 05:04 by Melissa Echavarria DO) Sibling Heart disease Brain aneurysm Cancer Grandparent Cerebrovascular accident Sibling Obesity Osteoporosis Heart disease Diabetes mellitus Multiple sclerosis Dementia Cerebrovascular accident Family history of malignant neoplasm COPD (chronic obstructive pulmonary disease) Father Cerebrovascular accident Hyperlipidemia Mother Alzheimer's dementia Other Family history of allergic disorder Family history of blood dyscrasia Family history of gout Family history of kidney disease Hypertension Social History Social History Social History: Ms. Shelton lives at home in [place] with her daughter and 7 other
[2021-05-31 23:17] LABS: Basophils Absolute Auto 0.1 K/mm3 (0.0-0.1); Basophils Percent Auto 0.6 % (0.2-1.2); Eosinophils Absolute Auto 0.4 K/mm3 (0-0.3); Eosinophils Percent Auto 4.3 % (0-4.4); Hematocrit 37.5 % (37.0-47.0); Hemoglobin 12.3 g/dL (12.0-15.0); Immature Granulocyte Absolute 0.02 K/mm3 (0.00-0.031); Immature Granulocyte Percent A 0.2 % (0-0.5); Lymphocytes Absolute Auto 1.55 K/mm3 (0.9-3.2); Lymphocytes Percent Auto 18.9 % (18.3-44.2); Mean Corpuscular HGB Conc 32.8 g/dl (32-36); Mean Corpuscular Hemoglobin 28.7 pg (26-34); Mean Corpuscular Volume 87.4 fl (80-100); Mean Platelet Volume 10.6 fl (7.4-10.4); Monocytes Absolute Auto 0.6 K/mm3 (0.1-0.6); Monocytes Percent Auto 7.1 % (2.6-8.5); Neutrophils Absolute Auto 5.6 K/mm3 (1.3-6.7); Neutrophils Percent Auto 68.9 % (45.5-73.1); Platelet Count Result 261 k/mm3 (150-375); Red Blood Count 4.29 M/mm3 (4.2-5.4); Red Cell Distribution Width 14.7 % (11.5-14.5); White Blood Count 8.2 K/mm3 (4.5-10.0)
[2021-05-31 23:19] LABS: Alanine Aminotransferase 13 U/L (4-35); Albumin Level 3.7 g/dL (3.5-5.1); Alkaline Phosphatase 73 U/L (38-126); Anion Gap 5 mmol/L (8-16); Aspartate Amino Transferase 30 U/L (14-36); Bilirubin,Total 0.4 mg/dL (0.2-1.3); Blood Urea Nitrogen 45 mg/dL (7-17); Calcium 10.2 mg/dL (8.4-10.2); Carbon Dioxide 34 mmol/L (22-30); Chloride 99 mmol/L (98-107); Estimated Glomerular Filt Rate 19; Glucose 134 mg/dL (65-105); Potassium 4.9 mmol/L (3.4-5.0); Sodium 138 mmol/L (137-145)
[2021-05-31 23:40] LABS: Add Urine Microscopic? YES; Appearance Urine Clear (Clear); Bilirubin Urine Negative (Negative); Blood Urine Negative (Negative); Color Urine Yellow (Yellow); Glucose Urine UA Negative (Negative); Ketones Urine Negative (Negative); Leukocyte Esterase Ur 1+ LEU/UL (Negative); Mucus Urine Rare /lpf; Nitrate Urine Negative (Negative); Protein Urine 2+ mg/dL (Negative); RBC Urine 0-2 /hpf (0-2); Specific Grav Ur 1.011 (1.001-1.035); Squamous Epithelial Cell Urine Rare /hpf (Few); Urobilinogen Urine Negative mg/dL (<2.0)
[2021-06-01] VITALS (11 sets, daily range): BP systolic 128–154; BP diastolic 62–94; PULSE 61–86; RESP 14–23; TEMP 35.6–36.9; O2SAT 94–100
[2021-06-01] MEDS: CEPHALEXIN 500 MG CAPSULE PO ×2 (00:24→09:35)
[2021-06-01] MEDS: SODIUM CHLORIDE 0.9% IV 500 ML 999 ML IV CONT (00:24)
[2021-06-01 02:23] LABS: Glucose Point of Care 142 mg/dl (65-105)
--- NOTE | 2021-06-01 02:23 | PC.NURSE ---
Pt discharged, taken to vehicle via wheelchair by RN. When trying to get pt into car, pt went limp and was unable to get her feet up into the vehicle. Pt leaned on RN and RN called ED charge for help. Pt helped to wheelchair and taken back to room for reevaluation.
[2021-06-01 02:28] LABS: Alveolar/Arterial O2 Gradient 29.8 mmHg; Carboxyhemoglobin 0.6 % THb (0-2.0); Device ROOM AIR; Fractional Inspired Oxygen 21 %; HCO3 ABG 29.2 mEq/l (22.0-26.0); Methemoglobin ABG 0.2 %THb (0-1.5); Modified Allen's Test Pass; Oxygen Content ABG 17.3 %vol (16.0-22.0); Oxygen Saturation ABG 92.9 % (95.0-100.0); PO2 ABG 64.8 mmHg (80.0-100.0); PO2 FiO2 Ratio Arterial Blood 3.09 %; Reduced Hemoglobin 7.2 %THb (0-5.0); Site Drawn LEFT RADIAL; Total Hemoglobin 13.4 g/dL (12.0-18.0)
--- NOTE | 2021-06-01 03:46 | PC.NURSE ---
This patient, Suha Shelton, was admitted to 3 [facility] Surg Room 304-01. Patient/family oriented to hospital policies and general routines including ID bracelet, bed and alarms, visiting hours, pain management, procedures, bathroom and other care routines, personal items, smoking policy, room service/diet, and visiting hours. Information on how to activate the Rapid Response Team has been discussed. Patient/Family are encouraged to report perceived risks to care and to ask questions if they do not understand what they are told or what they should do.
[2021-06-01] MEDS: SODIUM CHLORIDE 0.9% IV 1,000 ML 75 ML IV CONT (04:29)
--- NOTE | 2021-06-01 04:43 | PM.IMHP ---
H&P: HPI History of Present Illness Date/Time: 06/01/21 04:43 Chief Complaint: weakness for 1 day, low-grade fever Narrative: 85-year-old female with past medical history of dementia, CHF, hypothyroidism, and diabetes who presented to the ER from home via private vehicle due to weakness started on the morning of the . The patient's daughter reported that the patient had been confused for 1 day. The patient had been talking to her mother who many years ago. The patient was having difficulty getting up to use the toilet this evening. She had a appointment with her primary care physician on 05/30/2021 and a UA was sent and grew out 100,000 of gram-negative bacilli with further identification to follow. The patient had also reported a headache and was given Tylenol home with improvement in her symptoms. The patient had denied having any dysuria. The patient was initially somnolent on arrival to the floor. At the time my evaluation the patient wakes up in tells me her name, the year and states that she is in the hospital because she was having a headache. She could not tell me the location of her headache. In the ER she told them that the headache was frontal in nature. When I asked the patient to look towards me so that I could evaluate her pupils she stated that she could not see me. I asked her how long has she been having trouble with her vision and she stated for a little bit. she thought that the month was May. She did know that she was at [facility]. Her speech is clear but slow. She does not have any obvious facial asymmetry. The patient reports that she is chronically incontinent of urine. She denies any dysuria. The patient's daughter reports that this is all the patient has had acted in the past when she had a UTI. The patient was evaluated in the ER and given a dose of Keflex. The patient was initially able to ambulate in the ER. However revise him to get the patient ready for discharge she stood up to go to car and went limp. The patient was having some mild desaturations on room air when she was asleep when she arrived on the medical floor. She does have a history of obstructive sleep apnea but does not use CPAP. the patient takes Flexeril home. The daughter reports that she takes Flexeril b.i.d. scheduled but it is ordered as t.i.d. scheduled. The daughter reports that the patient does not have a POA or advance directives in place. However prior H&P states that the patient's daughter is the patient's surrogate decision maker. Review of Systems Review of Systems: Narrative: 12 systems were reviewed with pertinent positives and negatives per HPI. Except as documented in the HPI, all other systems were reviewed and are negative. However somewhat limited due to the patient's history of dementia. [facility] Past Medical History Medical History (Updated 06/01/21 @ 06:29 by Melissa Echavarria DO) Cardiomegaly Chronic abdominal pain Chronic back pain CKD (chronic kidney disease) stage 4, GFR 15-29 ml/min COPD (chronic obstructive pulmonary disease) Dementia Diabetes GERD (gastroesophageal reflux disease) GI bleed HLD (hyperlipidemia) HTN (hypertension) Iron deficiency anemia Nephrolithiasis GELY (obstructive sleep apnea) Intolerant to CPAP Osteoarthritis Ulcer Esophageal Ventral hernia Surgical History Surgical History H/O umbilical hernia repair H/O: hysterectomy History of appendectomy History of cataract removal with insertion of prosthetic lens History of tonsillectomy and adenoidectomy Status post gastroplasty x 4 Family History Family History (Updated 06/01/21 @ 05:04 by Melissa Echavarria DO) Sibling Heart disease Brain aneurysm Cancer Grandparent Cerebrovascular accident Sibling Obesity Osteoporosis Heart disease Diabetes mellitus Multiple sclerosis Dementia Cerebrovascular accident Family history of malignan
[2021-06-01] MEDS: LEVOTHYROXINE SODIUM 75 MCG TABLET PO (06:06)
[2021-06-01] MEDS: LEVOTHYROXINE SODIUM 100 MCG TABLET PO (06:06)
[2021-06-01 06:22] LABS: Anion Gap 7 mmol/L (8-16); Blood Urea Nitrogen 43 mg/dL (7-17); Calcium 9.4 mg/dL (8.4-10.2); Carbon Dioxide 30 mmol/L (22-30); Chloride 100 mmol/L (98-107); Estimated Glomerular Filt Rate 20; Glucose 199 mg/dL (65-105); Potassium 4.6 mmol/L (3.4-5.0); Sodium 137 mmol/L (137-145)
[2021-06-01 08:47] LABS: Glucose Point of Care 169 mg/dl (65-105)
[2021-06-01] MEDS: MICONAZOLE NITRATE 2% CREAM 30 GM TUBE 1 APPLIC TOPICAL ×2 (09:00→18:02)
[2021-06-01] MEDS: ENOXAPARIN 40 MG/0.4 ML SYRINGE SUB-Q (09:34)
[2021-06-01] MEDS: DONEPEZIL HCL 10 MG TABLET PO (09:34)
[2021-06-01] MEDS: calcitrioL 0.25 MCG CAPSULE PO (09:35)
[2021-06-01] MEDS: CHOLECALCIFEROL 1,000 UNITS TABLET 5000 UNITS PO (09:35)
[2021-06-01] MEDS: busPIRone HCL 10 MG TABLET 30 MG PO ×2 (09:35→18:00)
[2021-06-01] MEDS: PANTOPRAZOLE 40 MG TABLET PO (09:35)
[2021-06-01] MEDS: MULTIVITAMINS THERAPEUTIC TAB (*BKC) 1 TABLET PO (09:35)
[2021-06-01] MEDS: lisinopriL 10 MG TABLET PO (09:35)
[2021-06-01] MEDS: allopurinoL 100 MG TABLET PO ×2 (09:35→18:01)
[2021-06-01] MEDS: CITALOPRAM HYDROBROMIDE 20 MG TABLET PO (09:36)
[2021-06-01] MEDS: carvediloL 6.25 MG TABLET PO (09:36)
--- NOTE | 2021-06-01 12:49 | PM.IMPN ---
Progress Note: A&P Assessment and Plan (1) Metabolic encephalopathy: Code(s): G93.41 - Metabolic encephalopathy Status: Acute Assessment and Plan: Patient apparently yesterday was talking to family members that have . None of this today and she is oriented x3 but is sleepy. Metabolic encephalopathy related to UTI may be superimposed on dementia. Migraine contributing? She describes a headache over her right eye which she said started a couple days ago. Episode with PT/OT where she slumped over and wasn't using her left arm or left leg, gazing to the right which improved after a few minutes and getting her back to bed. Stat CT brain repeated and again shows no acute intracranial findings. Blood sugar 148, vitals stable. Atypical migraine vs. TIA? MRI brain ordered. Holding her home Flexeril which she takes BID scheduled at home. (2) Acute UTI: Code(s): N39.0 - Urinary tract infection, site not specified Status: Acute Assessment and Plan: Given her metabolic encephalopathy, will treat based on urine culture collected from PCP office 05/30/21 - > 100,000 E coli, pansensitive. Was stared on oral Keflex; switch to IV rocephin given her mental status today, monitor. Monitor vital signs and urine output. (3) Acute on chronic renal failure: Qualifiers: Acute renal failure type: unspecified Chronic kidney disease stage: stage 3 (moderate) Qualified Code(s): N17.9 - Acute kidney failure, unspecified; N18.3 - Chronic kidney disease, stage 3 (moderate) Code(s): N17.9 - Acute kidney failure, unspecified; N18.9 - Chronic kidney disease, unspecified Status: Acute Assessment and Plan: Creatinine slightly elevated above baseline. Home lasix held for now, continue cautious IV hydration for now. Monitor renal function and urine output. (4) GELY (obstructive sleep apnea): Code(s): G47.33 - Obstructive sleep apnea (adult) (pediatric) Status: Chronic Assessment and Plan: Patient is intolerant to CPAP. (5) Headache: Qualifiers: Headache chronicity pattern: unspecified pattern Headache type: unspecified Intractability: not intractable Qualified Code(s): R51 - Headache Code(s): R51 - Headache Status: Acute Assessment and Plan: CT of the head was negative, now x 2. Likely in part due to acute UTI and generalized illness vs. migraine? Continue supportive care with tylenol. 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 Check A1c in AM. Continue her home 70/30 insulin at decreased doses. Diabetic diet. Continue to monitor with accu-cheks and adjust treatment as needed, cover with SSI. Subjective Date/time seen: 06/01/21 12:00 Interval history: Ms. Shelton is an 85yo F admitted for altered mental status and UTI. I am called to the room by nursing after an episode with therapy where she started to stand and her left leg gave out, leaning to the left and staring off to the right. Took 4 staff members to help lift her as she was slumped over but she did not fall. Upon my arrival to the room she is awake, being assisted back to bed with the Denita lift. She is able to answer questions and oriented to self, place, and year. She reports a headache over
[2021-06-01 17:10] LABS: Glucose Point of Care 148 mg/dl (65-105)
[2021-06-01 17:28] LABS: Glucose Point of Care 106 mg/dl (65-105)
--- NOTE | 2021-06-01 19:50 | PC.NURSE ---
PT in to see pt. PT moving pt when she be came weak and slumped. Pt c/o headache above right eye. This RN ran into room to assist PT and pt, along with dome and another PT, to assist patient into chair. Pt left arm director volunteer services weaker and pt neglecting it. When pt moved to chair from slumped position, pt unable to move left leg and it was awkwardly under right leg. Pt gazing off to right. Pt can redirect with focused concentration. Pt still A/Ox3, but still confused as she was during assessment. Spoke with ESTUARDO Menjivar who came to assess, agreed with concern. Order to repeat pt CT scan. Scan clear. MRI ordered. Called daughter to obtain telephone consent. Pt to MRI around 1700 via bed. Pt returned from MRI. Pt much more alert. Daughter at bedside feeding patient. Pt able to swallow pills with some coughing noted. Pt denies headache. This RN noted MRI report stating infarct. Called Dr. Rader who gave orders; asked her to come to bedside to speak with family. already out of facility. Called Swetha who was in ICU but would make a call into pt room to speak with daughter shortly. notifications and orders received in presence of oncoming RN who will continue to monitor.
--- NOTE | 2021-06-01 19:58 | PM.EVENT ---
Event Note Event Note Event Note: MRI resultsIMPRESSION: 1. Moderate-sized acute right occipital lobe infarction. 2. Chronic age related findings. the patient's daughter and the patient were requesting the results so I explained this to the the patient and her daughter. I started the patient on aspirin and Plavix. It looks like the patient is already on simvastatin. I stopped the subcu Lovenox for possibility of a conversion stroke.
[2021-06-01 20:41] LABS: Glucose Point of Care 169 mg/dl (65-105)
[2021-06-02] VITALS (10 sets, daily range): BP systolic 126–160; BP diastolic 58–77; PULSE 49–73; RESP 16–19; TEMP 36.6–37.6; O2SAT 95–100
--- NOTE | 2021-06-02 01:04 | ECG_ITS ---
Measurements Intervals [place] Rate: 69 P: 59 UT: 204 QRS: -6 QRSD: 101 T: 32 QT: 407 QTc: 437 Interpretive Statements SINUS RHYTHM BORDERLINE AV CONDUCTION DELAY BORDERLINE R WAVE PROGRESSION, ANTERIOR LEADS BASELINE ARTIFACT- II, III, AVR, AVF BORDERLINE ECG Electronically Signed On 06-02-2021 7:00:00 CDT by Mendoza Nunes D.O.
--- NOTE | 2021-06-02 01:17 | PC.NURSE ---
Physician Florindan called and notified that the patient is having dips in her heart rate from the 70s to the 30s to 40s, patient is complaining of a severe headache, worsening drooping and slurred speech with some confusion. patient vitals are 127/58, HR 67, T 99 O2 100. Physician ordered ecg.
[2021-06-02] MEDS: SODIUM CHLORIDE 0.9% IV 1,000 ML 75 ML IV CONT ×2 (05:40→20:07)
[2021-06-02 06:09] LABS: Glucose Point of Care 151 mg/dl (65-105)
[2021-06-02 07:35] LABS: Alanine Aminotransferase 9 U/L (4-35); Albumin Level 3.2 g/dL (3.5-5.1); Alkaline Phosphatase 62 U/L (38-126); Anion Gap 5 mmol/L (8-16); Aspartate Amino Transferase 22 U/L (14-36); Bilirubin,Total 0.3 mg/dL (0.2-1.3); Blood Urea Nitrogen 42 mg/dL (7-17); Calcium 9.2 mg/dL (8.4-10.2); Carbon Dioxide 31 mmol/L (22-30); Chloride 102 mmol/L (98-107); Estimated Glomerular Filt Rate 24; Glucose 160 mg/dL (65-105); Potassium 4.7 mmol/L (3.4-5.0); Sodium 138 mmol/L (137-145)
[2021-06-02 07:45] LABS: Hemoglobin A1C 8.3 % (<5.7)
[2021-06-02 07:49] LABS: Basophils Absolute Auto 0.1 K/mm3 (0.0-0.1); Basophils Percent Auto 0.7 % (0.2-1.2); Eosinophils Absolute Auto 0.3 K/mm3 (0-0.3); Eosinophils Percent Auto 3.6 % (0-4.4); Hematocrit 33.3 % (37.0-47.0); Hemoglobin 10.2 g/dL (12.0-15.0); Immature Granulocyte Absolute 0.02 K/mm3 (0.00-0.031); Immature Granulocyte Percent A 0.3 % (0-0.5); Lymphocytes Absolute Auto 1.64 K/mm3 (0.9-3.2); Lymphocytes Percent Auto 23.4 % (18.3-44.2); Mean Corpuscular HGB Conc 30.6 g/dl (32-36); Mean Corpuscular Hemoglobin 28.2 pg (26-34); Mean Platelet Volume 10.8 fl (7.4-10.4); Monocytes Absolute Auto 0.4 K/mm3 (0.1-0.6); Monocytes Percent Auto 5.7 % (2.6-8.5); Neutrophils Absolute Auto 4.7 K/mm3 (1.3-6.7); Neutrophils Percent Auto 66.3 % (45.5-73.1); Platelet Count Result 218 k/mm3 (150-375); Red Blood Count 3.62 M/mm3 (4.2-5.4); Red Cell Distribution Width 14.7 % (11.5-14.5)
[2021-06-02 08:21] LABS: Glucose Point of Care 160 mg/dl (65-105)
[2021-06-02 09:13] LABS: Magnesium 1.8 mg/dL (1.6-2.3)
[2021-06-02] MEDS: busPIRone HCL 10 MG TABLET 30 MG PO ×2 (10:29→17:20)
[2021-06-02] MEDS: allopurinoL 100 MG TABLET PO ×2 (10:29→17:20)
[2021-06-02] MEDS: DONEPEZIL HCL 10 MG TABLET PO (10:30)
[2021-06-02] MEDS: calcitrioL 0.25 MCG CAPSULE PO (10:30)
[2021-06-02] MEDS: CHOLECALCIFEROL 1,000 UNITS TABLET 5000 UNITS PO (10:30)
[2021-06-02] MEDS: CITALOPRAM HYDROBROMIDE 20 MG TABLET PO (10:30)
[2021-06-02] MEDS: MICONAZOLE NITRATE 2% CREAM 30 GM TUBE 1 APPLIC TOPICAL ×2 (10:31→17:21)
[2021-06-02] MEDS: lisinopriL 10 MG TABLET PO (10:31)
[2021-06-02] MEDS: PANTOPRAZOLE 40 MG TABLET PO (10:32)
[2021-06-02] MEDS: MULTIVITAMINS THERAPEUTIC TAB (*BKC) 1 TABLET PO (10:32)
[2021-06-02] MEDS: MAGNESIUM OXIDE 400 MG TABLET PO (10:36)
--- NOTE | 2021-06-02 11:11 | PM.IMPN ---
Progress Note: A&P Assessment and Plan (1) CVA (cerebral vascular accident): Qualifiers: CVA mechanism: unspecified Qualified Code(s): I63.9 - Cerebral infarction, unspecified Code(s): I63.9 - Cerebral infarction, unspecified Status: Acute Assessment and Plan: Patient with left-sided weakness; CT brain normal x 2, MRI brain 7/ shows moderate-sized acute right occipital lobe infarction. Daughter notes patient started with weakness and some minor slurred speech 7 morning. Outside of time window for tPA. GFR too low for CTA brain. Ordered carotid US and echocardiogram with bubble study. Lipid panel in AM. Monitor with cardiac telemetry. Spoke with Dr Rg with [facility] stroke team for recommendations. Offered to family transfer to tertiary care as we have no neurology coverage at our facility at present. Patient and family are agreeable to completing the work-up here, continuing medical management and to be seen by Dr Maldonado outpatient. Dr Rg recommends full-dose aspirin and increasing her statin to high-intensity statin for stroke risk reduction. Monitor with telemetry. Some bradycardia noted overnight. She has history of this. Hold beta diana and monitor. No arrhythmias detected. Continue PT/OT/ST. Spoke with daughter, Mel, for updates. She and patient are agreeable to rehab; will discuss with case mgmt in AM. (2) Metabolic encephalopathy: Code(s): G93.41 - Metabolic encephalopathy Status: Acute Assessment and Plan: Prior to arrival was talking to family members that have . None of this today and she is oriented x3. Metabolic encephalopathy related to UTI may be superimposed on dementia. New CVA as above. Held her home Flexeril which she takes BID scheduled at home. (3) Acute UTI: Code(s): N39.0 - Urinary tract infection, site not specified Status: Acute Assessment and Plan: Urine culture grew 100,000 E coli, pansensitive. Continue IV rocephin. Monitor vital signs and urine output. (4) Acute on chronic renal failure: Qualifiers: Acute renal failure type: unspecified Chronic kidney disease stage: stage 3 (moderate) Qualified Code(s): N17.9 - Acute kidney failure, unspecified; N18.3 - Chronic kidney disease, stage 3 (moderate) Code(s): N17.9 - Acute kidney failure, unspecified; N18.9 - Chronic kidney disease, unspecified Status: Acute Assessment and Plan: Creatinine slightly elevated above baseline. Home lasix held for now, continue cautious IV hydration for now. Monitor renal function and urine output. (5) Headache: Qualifiers: Headache chronicity pattern: unspecified pattern Headache type: unspecified Intractability: not intractable Qualified Code(s): R51 - Headache Code(s): R51 - Headache Status: Acute Assessment and Plan: May be related to migraine vs. CVA. Continue supportive care with tylenol. (6) Diabetes mellitus: Qualifiers: Diabetes mellitus complication status: with other specified complication Diabetes mellitus shelter insulin use: with lobsterman use Diabetes mellitus type: type 2 Qualified Code(s): E11.69 - Type 2 diabetes mellitus with other specified complication; Z79.4 - alf (current) use of insulin Code(s): E11.9 - Type 2 diabetes mellitus without complications Status: Acute Assessment and Plan: A1c 8.3%. Continue her home 70/30 insulin at decreased doses. Diabetic diet. Continue to monitor with accu-cheks and adjust treatment as needed, cover with SSI. (7) GELY (obstructive sleep apnea): Code(s): G47.33 - Obstructive sleep apnea (adult) (pediatric) Status: Ch
[2021-06-02 13:22] LABS: Glucose Point of Care 175 mg/dl (65-105)
[2021-06-02 17:35] LABS: Glucose Point of Care 175 mg/dl (65-105)
[2021-06-02 20:09] LABS: Glucose Point of Care 82 mg/dl (65-105)
[2021-06-03] VITALS (10 sets, daily range): BP systolic 146–174; BP diastolic 67–75; PULSE 58–70; RESP 18–20; TEMP 36.3–36.9; O2SAT 92–99
[2021-06-03] MEDS: LEVOTHYROXINE SODIUM 100 MCG TABLET PO (06:04)
[2021-06-03] MEDS: LEVOTHYROXINE SODIUM 75 MCG TABLET PO (06:06)
[2021-06-03 06:13] LABS: Basophils Percent Auto 0.5 % (0.2-1.2); Eosinophils Absolute Auto 0.3 K/mm3 (0-0.3); Eosinophils Percent Auto 5.3 % (0-4.4); Hematocrit 30.8 % (37.0-47.0); Hemoglobin 9.8 g/dL (12.0-15.0); Immature Granulocyte Absolute 0.01 K/mm3 (0.00-0.031); Immature Granulocyte Percent A 0.2 % (0-0.5); Lymphocytes Absolute Auto 1.54 K/mm3 (0.9-3.2); Lymphocytes Percent Auto 26.1 % (18.3-44.2); Mean Corpuscular HGB Conc 31.8 g/dl (32-36); Mean Corpuscular Hemoglobin 28.8 pg (26-34); Mean Corpuscular Volume 90.6 fl (80-100); Mean Platelet Volume 10.8 fl (7.4-10.4); Monocytes Absolute Auto 0.4 K/mm3 (0.1-0.6); Neutrophils Absolute Auto 3.6 K/mm3 (1.3-6.7); Neutrophils Percent Auto 60.9 % (45.5-73.1); Platelet Count Result 200 k/mm3 (150-375); Red Cell Distribution Width 14.7 % (11.5-14.5); White Blood Count 5.9 K/mm3 (4.5-10.0)
[2021-06-03 06:27] LABS: Anion Gap 3 mmol/L (8-16); Blood Urea Nitrogen 34 mg/dL (7-17); Calcium 8.9 mg/dL (8.4-10.2); Carbon Dioxide 32 mmol/L (22-30); Chloride 102 mmol/L (98-107); Estimated Glomerular Filt Rate 25; Glucose 91 mg/dL (65-105); Magnesium 1.7 mg/dL (1.6-2.3); Potassium 4.3 mmol/L (3.4-5.0); Sodium 137 mmol/L (137-145)
[2021-06-03 07:58] LABS: Glucose Point of Care 121 mg/dl (65-105)
[2021-06-03] MEDS: allopurinoL 100 MG TABLET PO ×2 (08:35→17:10)
[2021-06-03] MEDS: MAGNESIUM SULF 2 GM/WATER 50ML 2 GM/50 ML BAG IVPB (08:36)
[2021-06-03] MEDS: CHOLECALCIFEROL 1,000 UNITS TABLET 5000 UNITS PO (08:37)
[2021-06-03] MEDS: calcitrioL 0.25 MCG CAPSULE PO (08:37)
[2021-06-03] MEDS: busPIRone HCL 10 MG TABLET 30 MG PO ×2 (08:37→17:10)
[2021-06-03] MEDS: ATORVASTATIN 40 MG TABLET 80 MG PO (08:37)
[2021-06-03] MEDS: DONEPEZIL HCL 10 MG TABLET PO (08:38)
[2021-06-03] MEDS: MAGNESIUM OXIDE 400 MG TABLET PO (08:38)
[2021-06-03] MEDS: CITALOPRAM HYDROBROMIDE 20 MG TABLET PO (08:38)
[2021-06-03] MEDS: lisinopriL 10 MG TABLET PO (08:38)
[2021-06-03] MEDS: MULTIVITAMINS THERAPEUTIC TAB (*BKC) 1 TABLET PO (08:39)
[2021-06-03] MEDS: MICONAZOLE NITRATE 2% CREAM 30 GM TUBE 1 APPLIC TOPICAL ×3 (08:39→17:11)
[2021-06-03] MEDS: PANTOPRAZOLE 40 MG TABLET PO (08:39)
[2021-06-03] MEDS: SODIUM CHLORIDE 0.9% IV 1,000 ML 75 ML IV CONT (08:43)
--- NOTE | 2021-06-03 10:36 | P.PNIM_ITS ---
Progress Note: A&P Assessment and Plan (1) CVA (cerebral vascular accident): Qualifiers: CVA mechanism: unspecified Qualified Code(s): I63.9 - Cerebral infarction, unspecified Code(s): I63.9 - Cerebral infarction, unspecified Status: Acute Assessment and Plan: * Patient with left-sided weakness; CT brain normal x 2, MRI brain 7 shows moderate-sized acute right occipital lobe infarction. Daughter notes patient started with weakness and some minor slurred speech 05/31 morning. Outside of time window for tPA. * GFR too low for CTA brain. Ordered carotid US and echocardiogram with bubble study. Lipid panel in AM. Monitor with cardiac telemetry. * Spoke with Dr Rg with [facility] stroke team 06/02 for recommendations. Offered to family transfer to tertiary care as we have no neurology coverage at our facility at present. Patient and family are agreeable to completing the work- up here, continuing medical management and to be seen by Dr Maldonado outpatient. Dr Rg recommends full-dose aspirin and increasing her statin to high- intensity statin for stroke risk reduction, no Plavix. * Monitor with telemetry. Some bradycardia noted. She has history of this. Hold beta diana and monitor. No arrhythmias detected. * Continue PT/OT/ST. Long discussion with daughter, Mel, yesterday about plan of care. She and patient are agreeable to rehab. (2) Metabolic encephalopathy: Code(s): G93.41 - Metabolic encephalopathy Status: Acute Assessment and Plan: * Prior to arrival, patient was talking to family members that have . None of this today and she is alert, oriented x3. * Metabolic encephalopathy related to UTI may be superimposed on dementia. New CVA as above. * Held her home Flexeril which she takes BID scheduled at home. (3) Acute UTI: Code(s): N39.0 - Urinary tract infection, site not specified Status: Acute Assessment and Plan: * Urine culture grew 100,000 E coli, pansensitive. * Continue IV rocephin (day 3). Monitor vital signs and urine output. Morrissey was placed due to urinary retention. Voiding trial today. (4) Acute on chronic renal failure: Qualifiers: Acute renal failure type: unspecified Chronic kidney disease stage: stage 3 (moderate) Qualified Code(s): N17.9 - Acute kidney failure, unspecified; N18.3 - Chronic kidney disease, stage 3 (moderate) Code(s): N17.9 - Acute kidney failure, unspecified; N18.9 - Chronic kidney disease, unspecified Status: Acute Assessment and Plan: * Creatinine slightly elevated above baseline, now improving. Home lasix held for now, stop IV fluids. * Monitor renal function and urine output. (5) Headache: Qualifiers: Headache chronicity pattern: unspecified pattern Headache type: unspecified Intractability: not intractable Qualified Code(s): R51 - Headache Code(s): R51 - Headache Status: Acute Assessment and Plan: * May be related to migraine vs. CVA. Improved today. * Continue supportive care with Tylenol. 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
--- NOTE | 2021-06-03 10:36 | PM.IMPN ---
Progress Note: A&P Assessment and Plan (1) CVA (cerebral vascular accident): Qualifiers: CVA mechanism: unspecified Qualified Code(s): I63.9 - Cerebral infarction, unspecified Code(s): I63.9 - Cerebral infarction, unspecified Status: Acute Assessment and Plan: Patient with left-sided weakness; CT brain normal x 2, MRI brain 06/01 shows moderate-sized acute right occipital lobe infarction. Daughter notes patient started with weakness and some minor slurred speech 05/31 morning. Outside of time window for tPA. GFR too low for CTA brain. Ordered carotid US and echocardiogram with bubble study. Lipid panel in AM. Monitor with cardiac telemetry. Spoke with Dr Rg with [facility] stroke team 06/02 for recommendations. Offered to family transfer to tertiary care as we have no neurology coverage at our facility at present. Patient and family are agreeable to completing the work-up here, continuing medical management and to be seen by Dr Maldonado outpatient. Dr Rg recommends full-dose aspirin and increasing her statin to high-intensity statin for stroke risk reduction, no Plavix. Monitor with telemetry. Some bradycardia noted. She has history of this. Hold beta diana and monitor. No arrhythmias detected. Continue PT/OT/ST. Long discussion with daughter, Mel, yesterday about plan of care. She and patient are agreeable to rehab. (2) Metabolic encephalopathy: Code(s): G93.41 - Metabolic encephalopathy Status: Acute Assessment and Plan: Prior to arrival, patient was talking to family members that have . None of this today and she is alert, oriented x3. Metabolic encephalopathy related to UTI may be superimposed on dementia. New CVA as above. Held her home Flexeril which she takes BID scheduled at home. (3) Acute UTI: Code(s): N39.0 - Urinary tract infection, site not specified Status: Acute Assessment and Plan: Urine culture grew 100,000 E coli, pansensitive. Continue IV rocephin (day 3). Monitor vital signs and urine output. Morrissey was placed due to urinary retention. Voiding trial today. (4) Acute on chronic renal failure: Qualifiers: Acute renal failure type: unspecified Chronic kidney disease stage: stage 3 (moderate) Qualified Code(s): N17.9 - Acute kidney failure, unspecified; N18.3 - Chronic kidney disease, stage 3 (moderate) Code(s): N17.9 - Acute kidney failure, unspecified; N18.9 - Chronic kidney disease, unspecified Status: Acute Assessment and Plan: Creatinine slightly elevated above baseline, now improving. Home lasix held for now, stop IV fluids. Monitor renal function and urine output. (5) Headache: Qualifiers: Headache chronicity pattern: unspecified pattern Headache type: unspecified Intractability: not intractable Qualified Code(s): R51 - Headache Code(s): R51 - Headache Status: Acute Assessment and Plan: May be related to migraine vs. CVA. Improved today. Continue supportive care with Tylenol. (6) Diabetes mellitus: Qualifiers: Diabetes mellitus type: type 2 Diabetes mellitus longterm insulin use: with intermediate manager use Diabetes mellitus complication status: with other specified complication Qualified Code(s): E11.69 - Type 2 diabetes mellitus with other specified complication; Z79.4 - intermediate accountant (current) use of insulin Code(s): E11.9 - Type 2 diabetes mellitus without complications Status: Acute Assessment and Plan: A1c 8.3%. Continue her home 70/30 insulin at decreased doses. Decreased doses again today, will adjust based on blood glucose trends. Diabetic diet. Continue to monitor with accu-cheks and adjust treatment as needed, cover with SSI.
[2021-06-03 12:13] LABS: Glucose Point of Care 166 mg/dl (65-105)
[2021-06-03] MEDS: ASPIRIN 325 MG ENTERIC TABLET PO (12:21)
[2021-06-03 17:08] LABS: Glucose Point of Care 160 mg/dl (65-105)
[2021-06-04] VITALS (9 sets, daily range): BP systolic 139–148; BP diastolic 65–68; PULSE 65–72; RESP 20; TEMP 36.3–36.7; O2SAT 94–96
--- NOTE | 2021-06-04 | ECHO_ITS ---
Patient Info Name: Suha Shelton Age: 85 years : 1935 Gender: Female Ht: 63 in Wt: 349 lbs BSA: 2.76 m2 HR: 70 bpm Heart Rhythm: Sinus Rhythm Technical Quality: Fair Exam Date: 06/04/2021 11:38 AM Exam Location: [facility] Patient Status: Inpatient Admit Date: 06/02/2021 Staff Ordering Physician: Tiara Medina PA-C Project/Production Manager Imaging: Teresa Coronel RDCS Attending Provider: Melissa Echavarria DO Exam Type: CA echo doppler w bubble study Study Info Complete two-dimensional, color flow and Doppler transthoracic echocardiogram is performed with contrast to opacify the left ventricle and to improve the deliniation of the left ventricle endocardial borders. Complete two-dimensional, color flow and Doppler transthoracic echocardiogram is performed with agitated saline. Contrast/Agitated Saline Contrast/Ag. Saline: Definity Amount: 4.00 ml Summary 1. Normal left ventricular size and thickness with normal left ventricular systolic function EF greater than 70%. No segmental wall motion abnormalities. Grade 2 diastolic dysfunction is present. 2. Left atrial chamber dimension is mildly enlarged. 3. Right ventricular chamber dimension is mildly enlarged. 4. No significant valve disease. 5. There is mild aortic root atherosclerosis. 6. Normal estimated pulmonary pressure. 7. Normal appearing atrial septum. No shunt present with bubble study with normal respiration and Valsalva. 8. Normal sinus rhythm. Left Ventricle Left ventricular chamber dimension is normal. Left ventricular systolic function is normal, estimated at >70%. There is no increased left ventricular wall thickness. Left ventricular septal wall motion is normal. The left ventricular diastolic function is grade II diastolic dysfunction. Right Ventricle Right ventricular chamber dimension is mildly enlarged. Right ventricular systolic function is normal. Left Atria Left atrial chamber dimension is mildly enlarged. Right Atria Right atrial chamber dimension is normal. Aortic Valve The aortic valve is trileaflet. There is no aortic valve sclerosis. There is no aortic valve stenosis. There is no aortic valve regurgitation. Pulmonic Valve The pulmonic valve is normal. There is no pulmonic valve stenosis. There is trace pulmonic regurgitation. Mitral Valve The mitral valve has normal leaflets. There is no mitral valve stenosis. There is trace mitral valve regurgitation. Tricuspid Valve The tricuspid valve leaflets are normal. There is no significant tricuspid valve stenosis. There is trace tricuspid valve regurgitation. No pulmonary hypertension, estimated pulmonary arterial systolic pressure is Empty. Pericardium/Pleural The pericardium appears normal. There is no pericardial effusion. Inferior Vena Cava Normal inferior vena cava with >50% collapse upon inspiration consistent with Empty right atrial pressure, Empty. Aorta The aortic root size at the sinus of Valsalva is normal. The prox ascending aorta size is normal. There is mild aortic root atherosclerosis. Left Ventricular Outflow Tract Name Value Normal LVOT 2D LVOT Diameter 2.3 cm
[2021-06-04] MEDS: LEVOTHYROXINE SODIUM 100 MCG TABLET PO (05:30)
[2021-06-04] MEDS: LEVOTHYROXINE SODIUM 75 MCG TABLET PO (05:30)
[2021-06-04 05:54] LABS: Glucose Point of Care 125 mg/dl (65-105)
[2021-06-04 06:10] LABS: Hematocrit 30.7 % (37.0-47.0); Hemoglobin 9.9 g/dL (12.0-15.0)
[2021-06-04 06:22] LABS: Anion Gap 4 mmol/L (8-16); Blood Urea Nitrogen 33 mg/dL (7-17); Calcium 9.5 mg/dL (8.4-10.2); Carbon Dioxide 31 mmol/L (22-30); Chloride 100 mmol/L (98-107); Cholesterol 148 mg/dL (0-200); Estimated Glomerular Filt Rate 27; Glucose 134 mg/dL (65-105); HDL Direct 35 mg/dL; Potassium 4.2 mmol/L (3.4-5.0); Sodium 135 mmol/L (137-145); Triglycerides 166 mg/dL (<150)
[2021-06-04 06:32] LABS: LDL Cholesterol Direct 65 mg/dL
[2021-06-04 08:00] LABS: Glucose Point of Care 131 mg/dl (65-105)
[2021-06-04] MEDS: ASPIRIN 325 MG ENTERIC TABLET PO (09:18)
[2021-06-04] MEDS: MULTIVITAMINS THERAPEUTIC TAB (*BKC) 1 TABLET PO (09:18)
[2021-06-04] MEDS: calcitrioL 0.25 MCG CAPSULE PO (09:18)
[2021-06-04] MEDS: ATORVASTATIN 40 MG TABLET 80 MG PO (09:19)
[2021-06-04] MEDS: CHOLECALCIFEROL 1,000 UNITS TABLET 5000 UNITS PO (09:19)
[2021-06-04] MEDS: allopurinoL 100 MG TABLET PO ×2 (09:20→17:26)
[2021-06-04] MEDS: busPIRone HCL 10 MG TABLET 30 MG PO ×2 (09:20→17:26)
[2021-06-04] MEDS: MAGNESIUM OXIDE 400 MG TABLET PO (09:21)
[2021-06-04] MEDS: DONEPEZIL HCL 10 MG TABLET PO (09:21)
[2021-06-04] MEDS: CITALOPRAM HYDROBROMIDE 20 MG TABLET PO (09:21)
[2021-06-04] MEDS: lisinopriL 10 MG TABLET PO (09:21)
[2021-06-04] MEDS: PANTOPRAZOLE 40 MG TABLET PO (09:21)
[2021-06-04] MEDS: MICONAZOLE NITRATE 2% CREAM 30 GM TUBE 1 APPLIC TOPICAL ×3 (09:30→17:27)
--- NOTE | 2021-06-04 09:48 | PM.IMPN ---
Progress Note: A&P Assessment and Plan (1) CVA (cerebral vascular accident): Qualifiers: CVA mechanism: unspecified Qualified Code(s): I63.9 - Cerebral infarction, unspecified Code(s): I63.9 - Cerebral infarction, unspecified Status: Acute Assessment and Plan: Patient with left-sided weakness; CT brain normal x 2, MRI brain 06/01 showed moderate-sized acute right occipital lobe infarction. Daughter notes patient started with weakness and some minor slurred speech 05/31 morning. She was outside of time window for tPA. GFR too low for CTA brain. Ordered carotid US and echocardiogram with bubble study which I am hopeful can be done today. Spoke with Dr Rg with [facility] stroke team 06/02 for recommendations. Offered to family transfer to tertiary care as we have no neurology coverage at our facility at present. Patient and family are agreeable to completing the work-up here, continuing medical management and to be seen by Dr Maldonado outpatient. Dr Rg recommends full-dose aspirin and increasing her statin to high-intensity statin for stroke risk reduction, recommended no Plavix given the low stroke scale (4). Monitor with telemetry. Some bradycardia noted. She has documented history of this. Hold beta diana and monitor. No arrhythmias appreciated. Continue PT/OT/ST. Long discussion with daughter, Mel, 06/02 about plan of care. She and patient are agreeable to rehab; now awaiting rehab placement. (2) Metabolic encephalopathy: Code(s): G93.41 - Metabolic encephalopathy Status: Acute Assessment and Plan: Prior to arrival, patient was talking to family members that have . Today she is alert, oriented x3 but RN reports some odd speech this morning, trying to get out of bed. Metabolic encephalopathy related to UTI may be superimposed on dementia. New CVA as above. Hospital delirium could be contributing as well. Held her home Flexeril which she takes BID scheduled at home. (3) Acute UTI: Code(s): N39.0 - Urinary tract infection, site not specified Status: Acute Assessment and Plan: Urine culture grew 100,000 E coli, pansensitive. Continue IV rocephin (day 4). Monitor vital signs and urine output. Morrissey was placed due to urinary retention and since removed. Voiding without difficulty today. (4) Acute on chronic renal failure: Qualifiers: Acute renal failure type: unspecified Chronic kidney disease stage: stage 3 (moderate) Qualified Code(s): N17.9 - Acute kidney failure, unspecified; N18.3 - Chronic kidney disease, stage 3 (moderate) Code(s): N17.9 - Acute kidney failure, unspecified; N18.9 - Chronic kidney disease, unspecified Status: Acute Assessment and Plan: Creatinine was initially slightly elevated above baseline, now improved back to baseline after IV fluids that have since been stopped. Monitor renal function and urine output. (5) Headache: Qualifiers: Headache chronicity pattern: unspecified pattern Headache type: unspecified Intractability: not intractable Qualified Code(s): R51 - Headache Code(s): R51 - Headache Status: Acute Assessment and Plan: May be related to migraine vs. CVA. Resolved today. Continue supportive care with Tylenol. 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
[2021-06-04 12:47] LABS: Glucose Point of Care 182 mg/dl (65-105)
[2021-06-04 18:37] LABS: Glucose Point of Care 155 mg/dl (65-105)
[2021-06-05] VITALS (9 sets, daily range): BP systolic 117–148; BP diastolic 54–71; PULSE 58–73; RESP 18; TEMP 36.4–37.3; O2SAT 93–100
--- NOTE | 2021-06-05 03:40 | PC.NURSE ---
Addendum entered by Santa Prakash RN 06/05/21 04:30: Give Tylenol for pain per MD. 1000mg given PO Tylenol without difficulty. Will monitor for pain assessment. Addendum entered by Santa Prakash RN 06/05/21 03:59: Spoke with Dr. Buchanan to inform. Will do Doppler Flow w/ detector at this time. Blood flow evident of no clots or occlusions. Will give Tylenol for pain. L wrist also swollen and pt c/o pain to that site as well. MD notified and aware. Original Note: 0340: Pt c/o pain to L foot. SN assessed both feet to note bilat mottling and purplish skin with apparent vessel breakage and impeded blood flow. Notified Hospitalist, Dr. Nolan and LV. Awaiting return call at this time.
[2021-06-05] MEDS: ACETAMINOPHEN 500 MG TABLET 1000 MG PO ×2 (04:24→20:26)
[2021-06-05 04:41] LABS: Glucose Point of Care 138 mg/dl (65-105)
[2021-06-05 04:49] LABS: Glucose Point of Care 119 mg/dl (65-105)
[2021-06-05] MEDS: LEVOTHYROXINE SODIUM 100 MCG TABLET PO (05:44)
[2021-06-05] MEDS: LEVOTHYROXINE SODIUM 75 MCG TABLET PO (05:45)
[2021-06-05 05:56] LABS: Hematocrit 32.8 % (37.0-47.0); Hemoglobin 10.5 g/dL (12.0-15.0); Mean Corpuscular Hemoglobin 28.3 pg (26-34); Mean Corpuscular Volume 88.4 fl (80-100); Mean Platelet Volume 10.5 fl (7.4-10.4); Platelet Count Result 210 k/mm3 (150-375); Red Blood Count 3.71 M/mm3 (4.2-5.4); Red Cell Distribution Width 14.6 % (11.5-14.5); White Blood Count 7.6 K/mm3 (4.5-10.0)
[2021-06-05 05:59] LABS: Uric Acid 5.7 mg/dL (2.5-7.5)
[2021-06-05 06:00] LABS: Anion Gap 5 mmol/L (8-16); Blood Urea Nitrogen 29 mg/dL (7-17); Calcium 9.6 mg/dL (8.4-10.2); Carbon Dioxide 32 mmol/L (22-30); Chloride 98 mmol/L (98-107); Estimated CRCL calculation 30 ml/min; Estimated Glomerular Filt Rate 25; Glucose 135 mg/dL (65-105); Magnesium 1.9 mg/dL (1.6-2.3); Sodium 135 mmol/L (137-145)
[2021-06-05 08:19] LABS: Glucose Point of Care 155 mg/dl (65-105)
[2021-06-05] MEDS: MICONAZOLE NITRATE 2% CREAM 30 GM TUBE 1 APPLIC TOPICAL ×3 (08:30→17:56)
[2021-06-05] MEDS: busPIRone HCL 10 MG TABLET 30 MG PO ×2 (09:13→16:51)
[2021-06-05] MEDS: DONEPEZIL HCL 10 MG TABLET PO (09:14)
[2021-06-05] MEDS: CHOLECALCIFEROL 1,000 UNITS TABLET 5000 UNITS PO (09:14)
[2021-06-05] MEDS: allopurinoL 100 MG TABLET PO ×2 (09:15→16:50)
[2021-06-05] MEDS: MULTIVITAMINS THERAPEUTIC TAB (*BKC) 1 TABLET PO (09:16)
[2021-06-05] MEDS: calcitrioL 0.25 MCG CAPSULE PO (09:16)
[2021-06-05] MEDS: CITALOPRAM HYDROBROMIDE 20 MG TABLET PO (09:16)
[2021-06-05] MEDS: lisinopriL 10 MG TABLET PO (09:16)
[2021-06-05] MEDS: ASPIRIN 325 MG ENTERIC TABLET PO (09:17)
[2021-06-05] MEDS: PANTOPRAZOLE 40 MG TABLET PO (09:17)
[2021-06-05] MEDS: MAGNESIUM OXIDE 400 MG TABLET PO (09:17)
[2021-06-05] MEDS: ATORVASTATIN 40 MG TABLET 80 MG PO (09:17)
[2021-06-05 10:18] LABS: Glucose Point of Care 132 mg/dl (65-105)
--- NOTE | 2021-06-05 11:50 | PCNSR ---
On 06/05/21, the student,Cynthia Lozano, provided care and completed [facility] documentation on this patient. I have reviewed the student's documentation and agree with the findings.
[2021-06-05 12:02] LABS: Glucose Point of Care 165 mg/dl (65-105)
--- NOTE | 2021-06-05 14:09 | PM.IMPN ---
Progress Note: A&P Assessment and Plan (1) CVA (cerebral vascular accident): Qualifiers: CVA mechanism: unspecified Qualified Code(s): I63.9 - Cerebral infarction, unspecified Code(s): I63.9 - Cerebral infarction, unspecified Status: Acute Assessment and Plan: Patient with left-sided weakness and slurred speech found on exam earlier in the stay -CT brain normal x 2 but MRI brain 06/01 showed moderate-sized acute right occipital lobe infarction. -Daughter notes patient started with weakness and some minor slurred speech 05/31 morning. She was outside of time window for tPA. -GFR too low for CTA brain. u/s of carotids look okay. Echo pending -Previous provider spoke with Dr Rg with [facility] stroke team 06/02 for recommendations. Offered to family transfer to tertiary care as we have no neurology coverage at our facility at present. Patient and family are agreeable to completing the work-up here, continuing medical management and to be seen by Dr Maldonado outpatient. -Dr Rg recommends full-dose aspirin and increasing her statin to high-intensity statin for stroke risk reduction, recommended no Plavix given the low stroke scale (4). -Monitor with telemetry. Some bradycardia noted. She has documented history of this. Hold beta diana and monitor. No arrhythmias appreciated. -Continue PT/OT/ST. -Likely d/c 06/06/21 if pt remains stable and no further abnormal tele reviews. May need holter monitor at d/c (2) Metabolic encephalopathy: Code(s): G93.41 - Metabolic encephalopathy Status: Acute Assessment and Plan: Prior to arrival, patient was talking to family members that have . Today she is alert and oriented to person and place but not situation -Metabolic encephalopathy related to UTI may be superimposed on dementia. New CVA as above. Hospital delirium could be contributing as well. -Flexeril (which she takes BID) scheduled at home. (3) Acute UTI: Code(s): N39.0 - Urinary tract infection, site not specified Status: Acute Assessment and Plan: Urine culture grew 100,000 E coli, pansensitive. -Continue IV rocephin (day 5). -Monitor vital signs and urine output. Morrissey was placed due to urinary retention and since removed. Voiding without difficulty today. (4) Acute on chronic renal failure: Qualifiers: Acute renal failure type: unspecified Chronic kidney disease stage: stage 3 (moderate) Qualified Code(s): N17.9 - Acute kidney failure, unspecified; N18.3 - Chronic kidney disease, stage 3 (moderate) Code(s): N17.9 - Acute kidney failure, unspecified; N18.9 - Chronic kidney disease, unspecified Status: Acute Assessment and Plan: Cr now at baseline, improved from admission (5) Headache: Qualifiers: Headache chronicity pattern: unspecified pattern Headache type: unspecified Intractability: not intractable Qualified Code(s): R51 - Headache Code(s): R51 - Headache Status: Acute Assessment and Plan: Resovled (6) Diabetes mellitus: Qualifiers: Diabetes mellitus type: type 2 Diabetes mellitus snf insulin use: with roasterman use Diabetes mellitus complication status: with other specified complication Qualified Code(s): E11.69 - Type 2 diabetes mellitus with other specified complication; Z79.4 - skilled nursing (current) use of insulin Code(s): E11.9 - Type 2 diabetes mellitus without complications Status: Acute Assessment and Plan: Last glucose 165 -A1c 8.3% -Continue her home 70/30 insulin at decreased doses (now at 10u). -Will monitor and will continue riccardo adjust based on blood glucose trends. -Continue Diabetic diet -Continue to monitor with accu-cheks and adjust treatment as needed, cover with SSI. (7) GELY (obstructive sleep apnea): Code(s): G47.33 - Obstructive sleep apnea (adult) (pediatric) Status: Chronic Assessment and Plan:
[2021-06-05 18:16] LABS: Glucose Point of Care 163 mg/dl (65-105)
[2021-06-05] MEDS: PHENOL/SOD PHENO SPRAY CHERRY (*BKC) 1 SPRAY MUCOUS MEM (20:29)
[2021-06-05 20:46] LABS: Glucose Point of Care 169 mg/dl (65-105)
[2021-06-06] VITALS: BP 151/63; PULSE 72; PULSE 73; RESP 18; TEMP 36.7; O2SAT 94
[2021-06-06 04:00] VITALS: BP 140/69; PULSE 64; PULSE 66; RESP 18; TEMP 36.4; O2SAT 95
[2021-06-06] MEDS: LEVOTHYROXINE SODIUM 100 MCG TABLET PO (05:38)
[2021-06-06] MEDS: LEVOTHYROXINE SODIUM 75 MCG TABLET PO (05:39)
[2021-06-06 06:18] LABS: Hematocrit 31.3 % (37.0-47.0)
[2021-06-06 06:31] LABS: Anion Gap 10 mmol/L (8-16); Blood Urea Nitrogen 35 mg/dL (7-17); Calcium 9.3 mg/dL (8.4-10.2); Carbon Dioxide 28 mmol/L (22-30); Chloride 98 mmol/L (98-107); Estimated CRCL calculation 29 ml/min; Estimated Glomerular Filt Rate 24; Glucose 124 mg/dL (65-105); Sodium 136 mmol/L (137-145)
[2021-06-06 07:47] LABS: Glucose Point of Care 126 mg/dl (65-105)
[2021-06-06] MEDS: CHOLECALCIFEROL 1,000 UNITS TABLET 5000 UNITS PO (07:50)
[2021-06-06] MEDS: ATORVASTATIN 40 MG TABLET 80 MG PO (07:50)
[2021-06-06] MEDS: busPIRone HCL 10 MG TABLET 30 MG PO (07:50)
[2021-06-06] MEDS: DONEPEZIL HCL 10 MG TABLET PO (07:51)
[2021-06-06] MEDS: ASPIRIN 325 MG ENTERIC TABLET PO (07:51)
[2021-06-06] MEDS: allopurinoL 100 MG TABLET PO (07:51)
[2021-06-06] MEDS: calcitrioL 0.25 MCG CAPSULE PO (07:51)
[2021-06-06] MEDS: CITALOPRAM HYDROBROMIDE 20 MG TABLET PO (07:51)
[2021-06-06] MEDS: lisinopriL 10 MG TABLET PO (07:51)
[2021-06-06] MEDS: MULTIVITAMINS THERAPEUTIC TAB (*BKC) 1 TABLET PO (07:51)
[2021-06-06] MEDS: PANTOPRAZOLE 40 MG TABLET PO (07:51)
[2021-06-06] MEDS: MAGNESIUM OXIDE 400 MG TABLET PO (07:52)
[2021-06-06] MEDS: PHENOL/SOD PHENO SPRAY CHERRY (*BKC) 1 SPRAY MUCOUS MEM (07:52)
[2021-06-06 08:00] VITALS: BP 150/83; PULSE 63; PULSE 67; RESP 16; TEMP 36.2; O2SAT 96
[2021-06-06 10:39] VITALS: O2SAT 95
[2021-06-06 11:40] LABS: Glucose Point of Care 197 mg/dl (65-105)
[2021-06-06 11:46] VITALS: BP 151/69; PULSE 61; RESP 18; TEMP 36.4; O2SAT 95
[2021-06-06 12:00] VITALS: PULSE 70
[2021-06-06 12:20] LABS: EDCOVIDSCREEN Negative (Negative)
[2021-06-06] MEDS: MICONAZOLE NITRATE 2% CREAM 30 GM TUBE 1 APPLIC TOPICAL ×2 (12:25)
--- NOTE | 2021-06-06 12:36 | PM.DS ---
DS: Admitting Diagnosis Admitting Diagnosis Admitting Diagnosis: UTI CVA DS: Discharge Diagnosis Discharge Diagnosis (1) CVA (cerebral vascular accident): Qualifiers: CVA mechanism: unspecified Qualified Code(s): I63.9 - Cerebral infarction, unspecified Code(s): I63.9 - Cerebral infarction, unspecified Status: Acute Assessment and Plan: Patient with left-sided weakness and slurred speech found on exam earlier in the stay -CT brain normal x 2 but MRI brain 06/01 showed moderate-sized acute right occipital lobe infarction. -Daughter notes patient started with weakness and some minor slurred speech 05/31 morning. She was outside of time window for tPA. -GFR too low for CTA brain. u/s of carotids look okay. Echo showing no shunt -Previous provider spoke with Dr Rg with [facility] stroke team 06/02 for recommendations. Offered to family transfer to tertiary care as we had no neurology coverage at our facility at present. Patient and family were agreeable to completing the work-up here, continuing medical management and to be seen by Dr Maldonado outpatient. -Dr Rg recommended full-dose aspirin and increasing her statin to high-intensity statin for stroke risk reduction, recommended no Plavix given the low stroke scale (4). -Monitor to be set up outpt. carvedilol restarted -Continue PT/OT/ST at SNF (2) Metabolic encephalopathy: Code(s): G93.41 - Metabolic encephalopathy Status: Acute Assessment and Plan: Prior to arrival, patient was talking to family members that have . Today she is alert and oriented x4 -Metabolic encephalopathy related to UTI may be superimposed on dementia. New CVA as above. Hospital delirium could have been contributing as well. -Flexeril (which she takes BID) scheduled at home was discontinued (3) Acute UTI: Code(s): N39.0 - Urinary tract infection, site not specified Status: Acute Assessment and Plan: Urine culture grew 100,000 E coli, pansensitive. -received ceftriaxone while hospitalized and transitioned to cefdinir at d/c - Morrissey was placed due to urinary retention and since removed. Voiding without difficulty (4) Acute on chronic renal failure: Qualifiers: Acute renal failure type: unspecified Chronic kidney disease stage: stage 3 (moderate) Qualified Code(s): N17.9 - Acute kidney failure, unspecified; N18.3 - Chronic kidney disease, stage 3 (moderate) Code(s): N17.9 - Acute kidney failure, unspecified; N18.9 - Chronic kidney disease, unspecified Status: Acute Assessment and Plan: Cr now at baseline, improved from admission -monitor on lasix, follow pcp (5) Headache: Qualifiers: Headache chronicity pattern: unspecified pattern Headache type: unspecified Intractability: not intractable Qualified Code(s): R51 - Headache Code(s): R51 - Headache Status: Acute Assessment and Plan: Resovled (6) Diabetes mellitus: Qualifiers: Diabetes mellitus type: type 2 Diabetes mellitus fpc insulin use: with predatory animal exterminator use Diabetes mellitus complication status: with other specified complication Qualified Code(s): E11.69 - Type 2 diabetes mellitus with other specified complication; Z79.4 - jail (current) use of insulin Code(s): E11.9 - Type 2 diabetes mellitus without complications Status: Acute Assessment and Plan: Last glucose 197 -A1c 8.3% -Continue her home 70/30 insulin at but I have let the SNF know this may need to be adjusted if her diet is restricted there. Spike PATEL did relay this information in report to the receiving nursing staff. (7) GELY (obstructive sleep apnea): Code(s): G47.33 - Obstructive sleep apnea (adult) (pediatric) Status: Chronic Assessment and Plan: -Patient is intolerant to CPAP. DS: Summary Hospital Course Hospital Course: Pt is a 85 y/o female who presented to
== END 2021-06-06 13:10 | DRG 64 ==
LOC: ANHED 06-01 03:00 → ANH3MEDSUR 06-01 03:14
PROVIDERS: Emergency Medicine; Internal Medicine; Physician Assistant; Admitting Provider Internal Medicine; Emergency Provider General Practice; PCP Emergency Medicine; Visit Provider Physician Assistant
DX: I63.9 Cerebral infarction, unspecified (principal); G93.41 Metabolic encephalopathy; G81.94 Hemiplegia, unspecified affecting left nondominant side; N39.0 Urinary tract infection, site not specified; N17.9 Acute kidney failure, unspecified; N18.4 Chronic kidney disease, stage 4 (severe); Z68.44 Body mass index [BMI] 60.0-69.9, adult; I12.9 Hypertensive chronic kidney disease with stage 1 through stage 4 chronic kidney disease, or unspecified chronic kidney disease; Z20.822 Contact with and (suspected) exposure to COVID-19; R47.81 Slurred speech; R51.9 Headache, unspecified; J44.9 Chronic obstructive pulmonary disease, unspecified; E66.9 Obesity, unspecified; G47.33 Obstructive sleep apnea (adult) (pediatric); B96.20 Unspecified Escherichia coli [E. coli] as the cause of diseases classified elsewhere; E11.22 Type 2 diabetes mellitus with diabetic chronic kidney disease; F03.90 Unspecified dementia, unspecified severity, without behavioral disturbance, psychotic disturbance, mood disturbance, and anxiety; M19.90 Unspecified osteoarthritis, unspecified site; D50.9 Iron deficiency anemia, unspecified; H54.62 Unqualified visual loss, left eye, normal vision right eye; E78.5 Hyperlipidemia, unspecified; E03.9 Hypothyroidism, unspecified; K21.9 Gastro-esophageal reflux disease without esophagitis; Z79.4 Long term (current) use of insulin; Z90.710 Acquired absence of both cervix and uterus; Z90.49 Acquired absence of other specified parts of digestive tract; Z98.42 Cataract extraction status, left eye; Z98.41 Cataract extraction status, right eye; Z87.891 Personal history of nicotine dependence
CPT/HCPCS: 36415; 36600; 51701; 70450; 70551; 71046; 73100; 73600; 73620; 80048; 80053; 80061; 81001; 82375; 82805; 82948; 83036; 83050; 83735; 84443; 84550; 85014; 85018; 85025; 85027; 87077; 87086; 87088; 87186; 87426; 92526; 92611; 93005; 93306; 93880; 96361; 96365; 96366; 96372; 96375; 97110; 97116; 97161; 97166; 97530; 97535; 99285; A9270; C9803; G0378; J0131; J0696; J1650; J1815; J3475; J7030; J7040; Q9957

== ENCOUNTER 2021-09-19 17:32 | Outpatient (CLI) | payer MEDICARE, SELFPAY ==
--- NOTE | ~2021-09-19 | XR_ITS ---
XR shoulder RT min 2V, XR humerus RT 09/19/2021 17:59 (accession [id number]), 09/19/2021 18:00 (accession [id number]) Indication: Right shoulder/arm pain after fall Procedure: 4 views right shoulder and 2 views right humerus Comparison: No prior studies for comparison. Findings: No fracture, subluxation or dislocation. There is anatomic alignment. Mild degenerative sulema nges of the shoulder. Surrounding osseous structures and soft tissues are unremarkable. Impression: 1: No acute bone or joint abnormality. Reviewed, dictated and finalized at location B. Impression: 1: No acute bone or joint abnormality. Impression: 1: No acute bone or joint abnormality.
== END 2021-09-19 17:33 | disposition home or self-care (01) ==
LOC: ANHIMG 17:39
PROVIDERS: PCP Emergency Medicine; Visit Provider Emergency Medicine
DX: M79.621 Pain in right upper arm (principal)
CPT/HCPCS: 73030; 73060

== ENCOUNTER 2021-09-21 14:00 | Emergency (ER) | payer MEDICARE, SELFPAY ==
--- NOTE | ~2021-09-21 | XR_ITS ---
XR shoulder RT min 2V 09/21/2021 15:42 Indication: Right shoulder pain after recent fall Procedure: 4 views right shoulder Comparison: 09/19/2021 Findings: Osteopenia. No acute fracture or traumatic malalignment. There is anatomic alignment. No si gnificant soft tissue abnormality. No foreign bodies. There are mild degenerative changes of the shou lder. Impression: 1: No acute fracture. Reviewed, dictated and finalized at location B. Impression: 1: No acute fracture.
--- NOTE | ~2021-09-21 | CT_ITS ---
EXAMINATION: CT brain wo con DATE: 09/21/2021 15:23 INDICATION: Head injury status post recent fall TECHNIQUE: Computed tomography (CT) of the head was performed without intravenous contrast. The dose- length product was 605.33 mGy-cm. Automated exposure control and iterative reconstruction technique w ere employed. COMPARISON: CT dated 06/01/2021 FINDINGS: Generalized atrophy. There are scattered moderate periventricular and subcortical white mat ter changes, most likely related to small vessel ischemic disease (microangiopathy). No acute intracr anial hemorrhage, infarction, mass or mass effect. There is chronic right occipital lobe infarction. Paranasal sinuses and mastoids are pneumatized. No depressed skull fractures. IMPRESSION: 1. No acute intracranial abnormality. 2: Chronic right occipital lobe infarction. 3: Chronic age-related findings. Reviewed, dictated and finalized at location B.
--- NOTE | ~2021-09-21 | XR_ITS ---
XR hip RT 2V w AP pelvis 09/21/2021 15:41 Indication: Right hip pain after fall Procedure: 3 views right hip including AP pelvis Comparison: No prior studies for comparison. Findings: There is osteoarthritis of the hips. No acute fracture, subluxation or dislocation. Pelvic rings are intact. No significant soft tissue abnormality. No foreign bodies. Impression: 1: No acute fracture. Reviewed, dictated and finalized at location B. Impression: 1: No acute fracture.
[2021-09-21 14:28] VITALS: BP 132/60; PULSE 65; RESP 18; TEMP 36.4; O2SAT 100
--- NOTE | 2021-09-21 15:25 | ED.FALL ---
HPI - Fall General Chief Complaint: Fall Stated Complaint: shoulder injury Time Seen by Provider: 09/21/21 15:03 Source: patient Mode of arrival: ambulatory Limitations: no limitations History of Present Illness HPI Narrative: Patient is an 85-year-old female complaining of right head, right facial, right shoulder and right hip pain, 8 out of 10, dull, worse with palpation and movement, started after a fall yesterday. Patient denies any loss of consciousness. Patient states that she was a symptomatic prior to the fall, just lost her balance. Patient denies any neck, chest, abdomen, pelvis, or any other extremity pain/injury. Related Data Home Medications Medication Instructions Recorded Confirmed calcitriol 0.25 mcg PO DAILY 10/08/19 07/20/21 cholecalciferol (vitamin D3) 5,000 unit PO DAILY 10/08/19 07/20/21 [Vitamin D3] multivitamin [Multiple Vitamins] 1 tablet PO DAILY 10/08/19 07/20/21 allopurinol 100 mg PO BID 06/01/21 07/20/21 buspirone 30 mg PO BID 06/01/21 07/20/21 citalopram 20 mg PO DAILY 06/01/21 07/20/21 donepezil 10 mg PO DAILY 06/01/21 07/20/21 furosemide 40 mg PO DAILY 06/01/21 07/20/21 insulin asp prt-insulin aspart 40 unit SUBCUT QPM 06/01/21 07/20/21 [Novolog Mix 70-30FlexPen U-100] levothyroxine 175 mcg PO DAILY 06/01/21 07/20/21 lisinopril 10 mg PO DAILY 06/01/21 07/20/21 potassium chloride 20 meq PO DAILY 06/01/21 07/20/21 Allergies Allergy/AdvReac Type Severity Reaction Status Date / Time adhesive tape Allergy Mild ADHESIVE/PLASTIC Verified 07/20/21 15:24 TAPE= ITCHING/ BLISTERS poison maya extract Allergy Unknown Rash Verified 07/20/21 15:24 Review of Systems Review of Systems: All systems reviewed & are unremarkable except as noted in HPI and below Constitutional: Constitutional: Denies body ache(s), Denies chills, Denies excessive sweating, Denies fatigue, Denies fever(s), Denies headache(s), Denies lethargy, Denies malaise, Denies weakness and Denies weight loss Eyes: Eyes: Denies blurry vision, Denies change in vision and Denies loss of vision ENT: Denies dizziness, Denies ear discharge, Denies headache(s), Denies lip swelling, Denies epistaxis, Denies nasal congestion, Denies neck pain, Denies throat swelling and Denies tongue swelling Cardiovascular: Cardiovascular: Denies chest pain, Denies chest pain at rest, Denies chest pain with activity, Denies diaphoresis, Denies rapid heart rate, Denies edema, Denies irregular heart rhythm, Denies lightheadedness, Denies palpitations, Denies dyspnea and Denies dyspnea on exertion Respiratory: Respiratory: Denies chest congestion, Denies cough, Denies hemoptysis, Denies dyspnea and Denies dyspnea on exertion Gastrointestinal: Gastrointestinal: Denies abdominal pain, Denies melena, Denies hematochezia, Denies diarrhea, Denies nausea, Denies vomiting and Denies hematemesis Musculoskeletal: Musculoskeletal: Denies abnormal gait, Denies limited range of motion, Denies neck pain and Denies numbness Neurologic: Denies Abnormal speech present, Denies abnormal gait, Denies confusion, Denies dizziness, Denies headache(s), Denies focal weakness, Denies loss of vision, Denies numbness, Denies Other visual disturbances, Denies Sensory deficit (Neuro) and Denies weakness Psychiatric: Psychiatric: Denies confusion, Denies depression, Denies auditory hallucinations, Denies homicidal ideation and Denies suicidal ideation Endocrine: Endocrine: Denies cold intolerance, Denies excessive sweating, Denies fatigue, Denies heat intolerance and Denies palpitations Hematologic/Lymphatic: Hematologic/Lymphatic: Denies easy bleeding and Denies easy bruising Allergic/Immunologic: Allergic/Immunologic: Denies lip swelling, Denies throat swelling and Denies tongue swelling PMFSH Past Medical History Medical History Cardiomegaly Chronic abdominal pain Chronic back pain CKD (chronic kidney disease) stage 4, G
[2021-09-21 16:08] VITALS: BP 127/44; PULSE 61; RESP 18; O2SAT 98
[2021-09-21] MEDS: HYDROcodone/acetaminophen (*CRX) 5-325 MG TABLET 1 TAB PO (17:05)
[2021-09-21 17:55] VITALS: BP 127/44; PULSE 57; RESP 20; O2SAT 98
== END 2021-09-21 17:55 | disposition home or self-care (01) ==
PROVIDERS: Emergency Provider Emergency Medicine; PCP Emergency Medicine
DX: S46.911A Strain of unspecified muscle, fascia and tendon at shoulder and upper arm level, right arm, initial encounter (principal); S00.83XA Contusion of other part of head, initial encounter; S70.01XA Contusion of right hip, initial encounter; E11.22 Type 2 diabetes mellitus with diabetic chronic kidney disease; I12.9 Hypertensive chronic kidney disease with stage 1 through stage 4 chronic kidney disease, or unspecified chronic kidney disease; N18.4 Chronic kidney disease, stage 4 (severe); J44.9 Chronic obstructive pulmonary disease, unspecified; F03.90 Unspecified dementia, unspecified severity, without behavioral disturbance, psychotic disturbance, mood disturbance, and anxiety; E78.5 Hyperlipidemia, unspecified; K21.9 Gastro-esophageal reflux disease without esophagitis; D50.9 Iron deficiency anemia, unspecified; G47.33 Obstructive sleep apnea (adult) (pediatric); M19.90 Unspecified osteoarthritis, unspecified site; I51.7 Cardiomegaly; Z98.49 Cataract extraction status, unspecified eye; Z96.1 Presence of intraocular lens; Z98.84 Bariatric surgery status; Z79.82 Long term (current) use of aspirin; Z79.4 Long term (current) use of insulin; W01.190A Fall on same level from slipping, tripping and stumbling with subsequent striking against furniture, initial encounter
CPT/HCPCS: 70450; 73030; 73502; 99284; A9270

== ENCOUNTER 2022-04-22 15:55 | Outpatient (CLI) | payer MEDICARE, SELFPAY ==
[2022-04-22 17:05] LABS: Albumin Level 3.3 g/dL (3.5-5.1); Anion Gap 4 mmol/L (8-16); Blood Urea Nitrogen 30 mg/dL (7-17); Calcium 9.2 mg/dL (8.4-10.2); Carbon Dioxide 28 mmol/L (22-30); Chloride 103 mmol/L (98-107); Estimated Glomerular Filt Rate 36; Glucose 69 mg/dL (65-110); HDL Direct 45 mg/dL; Phosphorus 3.2 mg/dL (2.5-4.5); Potassium 4.8 mmol/L (3.4-5.0); Sodium 135 mmol/L (137-145)
[2022-04-22 17:19] LABS: LDL Cholesterol Direct 38 mg/dL
[2022-04-22 17:22] LABS: Parathyroid Intact 21.7 pg/mL (7.5-53.5)
[2022-04-22 17:41] LABS: Thyroid Stimulating Hormone 0.034 uIU/mL (0.465-4.680)
[2022-04-22 18:29] LABS: Free T4 Free Thyroxine 1.64 ng/mL (0.78-2.19); Vitamin D 25 Hydroxy 61.7 ng/mL
== END 2022-04-22 15:56 | disposition home or self-care (01) ==
PROVIDERS: PCP Emergency Medicine; Visit Provider Internal Medicine Endocrinology, Diabetes & Metabolism
DX: E03.9 Hypothyroidism, unspecified (principal); E11.65 Type 2 diabetes mellitus with hyperglycemia; Z79.4 Long term (current) use of insulin; M85.80 Other specified disorders of bone density and structure, unspecified site; R79.89 Other specified abnormal findings of blood chemistry; N18.4 Chronic kidney disease, stage 4 (severe); E83.52 Hypercalcemia
CPT/HCPCS: 36415; 80069; 82306; 83718; 83721; 83970; 84439; 84443